=== PATIENT | female | born 1945 | race Caucasian/White ===

== ENCOUNTER 2024-04-02 12:40 | Inpatient (IN) | payer MEDICARE, BC, SELFPAY ==
--- NOTE | 2024-04-02 | DI.RAD.S_ITS ---
PROCEDURE: XR CHEST 1V INDICATIONS: preop/afib TECHNIQUE: One view of the chest was acquired. COMPARISON: None. FINDINGS: Surgical changes and devices: None. Lungs and pleura: Lungs are clear. No pleural effusions or pneumothorax. Mediastinum: Mediastinal contours appear normal. Heart size is normal. Bones and chest wall: No suspicious bony lesions. Overlying soft tissues appear unremarkable. IMPRESSION: No acute cardiopulmonary pathology. Dictated by: Campbell Boggs M.D. on 04/02/2024 at 17:36 Approved by: Campbell Boggs M.D. on 04/02/2024 at 17:36
--- NOTE | 2024-04-02 12:52 | DI.RAD.S_ITS ---
PROCEDURE: XR HIP W PEL IF DONE RT 2V INDICATIONS: fall,right hip pain TECHNIQUE: AP pelvis with lateral view(s) of the right hip(s). COMPARISON: None. FINDINGS: Bones: Displaced right femoral neck fracture with varus angulation.. Pelvic ring appears intact. No suspicious bony lesions. Soft tissues: The visualized bowel gas pattern is normal. No suspicious soft tissue calcifications. IMPRESSION: Displaced right femoral neck fracture with varus angulation. Dictated by: Gautam Lai M.D. on 04/02/2024 at 13:34 Approved by: Gautam Lai M.D. on 04/02/2024 at 13:35
[2024-04-02 12:53] VITALS: BP 156/71; PULSE 77; RESP 14; TEMP 36.4; O2SAT 99; BMI 23.6
[2024-04-02 12:57] VITALS: PULSE 63; RESP 21; O2SAT 98
[2024-04-02 13:00] VITALS: PULSE 64; RESP 18; O2SAT 97
[2024-04-02 13:30] VITALS: PULSE 66; RESP 20; O2SAT 96
--- NOTE | 2024-04-02 13:50 | ED_ITS ---
HPI - Fall General Chief Complaint: Fall Stated Complaint: GLF Time Seen by Provider: 04/02/24 13:48 Source: patient, family (), RN notes reviewed and old records reviewed Mode of arrival: EMS Limitations: no limitations History of Present Illness HPI Narrative: 78-year-old history of atrial fibrillation on Eliquis, prior meningioma that was resected had a subsequent bleed that resulted in seizure activity on patient is on Depakote. Patient's last seizure was November of 2023 patient had a focal seizure where her speech was affected. Patient also has a history of hypertension, dyslipidemia and CHF. Patient was on a hike today and fell landing on her right hip. Patient states she also landed on her right elbow. She states her elbow is fine she does not think she injured the bone she can move it normally but has pain in her right hip with any kind of movement. She denies any numbness tingling or weakness in any of her extremities but has significant pain at the hip. Denies hitting her head. No headache no neck pain, no back pain, no chest pain or shortness of breath, no nausea or vomiting no other GI or urinary symptoms. Patient states she has had prior hysterectomy has had prior meningioma resection developed subsequent bleed and did have seizures in the hospital. Most recent seizure was December 02 and she is on Depakote for this. No known drug allergies. No regular tobacco, recreational drugs or alcohol. Patient's home medications include Lasix, omeprazole, Eliquis, Depakote 750 mg p.o. b.i.d., potassium chloride, fluticasone, diltiazem. Related Data Home Medications Medication Instructions Recorded Confirmed apixaban 5 mg tablet (Eliquis) 5 mg PO BID 04/02/24 04/02/24 coQ10 (liposomal ubiquinol) 100 100 mg PO DAILY 04/02/24 04/02/24 mg/mL oral liquid divalproex 500 mg tablet,delayed 750 mg PO BID 04/02/24 04/02/24 release (Depakote) fluticasone propionate 50 1 spray intranasal DAILY 04/02/24 04/02/24 mcg/actuation nasal spray,suspension (Allergy Relief (fluticasone)) furosemide 40 mg tablet 40 mg PO DAILY 04/02/24 04/02/24 loratadine 10 mg tablet (Allergy 10 mg PO DAILY PRN Allergic 04/02/24 04/02/24 Relief (loratadine)) Symptoms magnesium 250 mg tablet 400 mg PO QPM 04/02/24 04/02/24 montelukast 10 mg tablet 10 mg PO QPM 04/02/24 04/02/24 omeprazole 20 mg capsule,delayed 20 mg PO DAILY 04/02/24 04/02/24 release pitavastatin calcium 2 mg tablet 2 mg PO QPM 04/02/24 04/02/24 (Livalo) potassium chloride 10 mEq 10 meq PO BID 04/02/24 04/02/24 tablet,extended release Allergies Allergy/AdvReac Type Severity Reaction Status Date / Time No Known Drug Allergies Allergy Verified 04/02/24 12:53 Review of Systems Review of Systems ROS Unobtainable: All systems reviewed & are unremarkable except as noted in HPI and below Patient History Medical History (Updated 04/02/24 @ 16:43 by Rj Villarreal MD) Coronary artery disease Allergic rhinitis GERD without esophagitis Mixed hyperlipidemia Essential hypertension Seizure disorder Chronic anticoagulation Paroxysmal atrial fibrillation Surgical History History of hysterectomy History of resection of meningioma Social History household members: spouse Smoking Status: Never smoker Smoking Status: Unknown if ever smoked alcohol intake frequency: holidays/special occasions only Substance Use Type: does not use Exam Narrative Exam Narrative: GEN: Patient appears in mild distress. HEAD: No evidence of trauma, no raccoon/Zambrano sign. NECK: Nontender, painless range of motion, trachea midline Negative Nexus criteria, no midline line tenderness, distracting injury, altered mental status, neuro deficit, recent EtOH. EYES: PERRLA, EOMI ENT: External inspection normal, trachea is midline, TM's are normal no hemotypanum, Nares are clear, no septal hematoma, no dental or oral injury, airway is normal and with normal occlusion, No bony tenderness RESP: Chest is nontender and has symmetric movement, no ecchymosis, breath sounds are normal no crackles, wheezes or rales CVS: Heart sounds are normal, no murmur noted, No JVD. ABG/GI: Nontender, soft, normal bowel sounds, no distention, no organomegaly, pelvic rock is negative NEURO: Oriented AOx3, neuro is grossly intact, sensation and motor is normal all 4 extremities moving, cranial nerves II through XII are intact, GCS is 15 PSYCH: Normal mood and affect SKIN: Intact, warm and dry, no crepitus and without decubitus BACK: No CVA tenderness, no vertebral tenderness, no step-off's, no crepitus EXT: Patient's right hip is tender, patient has 2+ dorsalis pedis with normal sensation throughout. No other bony tenderness of the right ankle, knee or thigh. Left hip is nontender. Patient has abrasion right elbow but has full range of motion nontender there is some ecchymosis. No other bony tenderness in the upper extremities. No pedal edema, normal color and temperature, normal range of motion of extremities with normal tendon exam, 2+ pulses in all four extremities Initial Vital Signs Initial Vital Signs: Vital Signs Temperature 97.5 F L 04/02/24 12:53 Pulse Rate 77 04/02/24 12:53 Respiratory Rate 14 04/02/24 12:53 Blood Pressure 156/71 H 04/02/24 12:53 Pulse Oximetry 99 04/02/24 12:53 Oxygen Delivery Method Room Air 04/02/24 12:53 Course Orders Ordered: ED Orders 04/02/24 12:52 XR hip w pel if done RT 2V Stat 04/02/24 12:56 CBC Auto Diff [Complete Blood Count AUTO DIFF] Stat CMP [Comprehensive Metabolic Panel] Stat PTT Partial Thromboplastin Melvin Stat Prothrombin Time INR Stat 04/02/24 14:47 Type and Screen Stat Acetaminophen (Acetaminophen 325 Mg Tablet) 650 mg PO Q6H PRN PRN Reason: Fever/Mild Pain (1-3) Last Admin: 04/02/24 15:54 Dose: 650 mg Documented By: AMBER Atorvastatin Calcium (Atorvastatin 20 Mg Tablet) 10 mg PO BEDTIME THADDEUS Divalproex Sodium (Divalproex Dr 250 Mg Tablet) 750 mg PO BID THADDEUS Fluticasone Propionate (Fluticasone 120 [place]/16 Gm [place].Susp) 1 spray NASAL DAILY THADDEUS Furosemide (Furosemide 40 Mg Tablet) 40 mg PO DAILY THADDEUS Sodium Chloride (Normal Saline 0.9%) 1,000 mls @ 125 mls/hr IV CONT THADDEUS Last Infusion: 04/02/24 15:42 Dose: 125 mls/hr Documented By: Infusion: 04/02/24 15:23 Dose: 0 mls/hr Documented By: Admin: 04/02/24 15:16 Dose: 125 mls/hr Documented By: JASMEET Loratadine (Loratadine 10 Mg Tablet) 10 mg PO DAILY PRN PRN Reason: Allergic Symptoms Magnesium Oxide (Magnesium Oxide 400 Mg Tablet) 400 mg PO BEDTIME THADDEUS Montelukast Sodium (Montelukast 10 Mg Tablet) 10 mg PO BEDTIME THADDEUS Morphine Sulfate (Morphine 4 Mg/Ml Inj) 3 mg IV Q2H PRN PRN Reason: Pain, Severe (7-10) Last Admin: 04/02/24 18:15 Dose: 3 mg Documented By: Admin: 04/02/24 16:30 Dose: 3 mg Documented By: AMBER Naloxone HCl (Naloxone 0.4 Mg/Ml Vial) 0.2 mg IV Q2MIN PRN PRN Reason: Opiate Reversal Ondansetron HCl (Ondansetron 4 Mg/2 Ml Inj) 4 mg IV Q8HR PRN PRN Reason: Nausea And Vomiting Pantoprazole Sodium (Pantoprazole Dr 20 Mg Tablet) 20 mg PO 0600 THADDEUS Potassium Chloride (Potassium Chloride 10 Meq Tab) 10 meq PO BID THADDEUS Discontinued Medications Calcium Gluconate 4.65 meq/ (Sodium Chloride) 60 mls @ 180 mls/hr IV NOW ONE Stop: 04/02/24 15:00 Last Infusion: 04/02/24 15:55 Dose: Infused Documented By: Infusion: 04/02/24 15:24 Dose: 0 mls/hr Documented By: Admin: 04/02/24 15:12 Dose: 180 mls/hr Documented By: JASMEET Magnesium Oxide (Magnesium Oxide 400 Mg Tablet) 400 mg PO QPM THADDEUS Last Admin: 04/02/24 17:41 Dose: Not Given Documented By: AMBER Montelukast Sodium (Montelukast 10 Mg Tablet) 10 mg PO QPM [facility] Last Admin: 04/02/24 17:41 Dose: Not Given Documented By: AMBER Morphine Sulfate (Morphine 4 Mg/Ml Inj) 4 mg IV Q4H PRN PRN Reason: pain Last Admin: 04/02/24 14:07 Dose: 4 mg Documented By: ASHLEY Vital Signs Vital signs: Vital Signs - 8 hr 04/02/24 12:53 04/02/24 12:57 04/02/24 13:00 Temperature 97.5 F L Pulse Rate 77 63 64 Respiratory Rate 14 21 18 Blood Pressure 156/71 H Pulse Oximetry 99 98 97 Oxygen Delivery Method Room Air 04/02/24 13:30 Temperature Pulse Rate 66 Respiratory Rate 20 Blood Pressure Pulse Oximetry 96 Oxygen Delivery Method MDM - Fall Lab Data 04/02/24 12:56 04/02/24 12:56 Labs: Lab Results 04/02/24 04/02/24 Range/Units 12:56 14:47 WBC 10.3 (4.5-11.0) X10^3/uL RBC 4.43 (4.0-5.2) X10^6/uL Hgb 13.4 (12.0-16.0) g/dL Hct 39.7 (36-46) % MCV 89.7 (80-100) fL MCH 30.2 (26-34) PG MCHC 33.6 (30-36) % RDW 14.1 (11.6-14.8) % Plt Count 220 (150-400) X10^3/uL Neut % (Auto) 74.7 (50-75) % Lymph % (Auto) 15.2 L (25-40) % [place] % (Auto) 8.1 (3-14) % Eos % (Auto) 1.4 L (2-4) % Baso % (Auto) 0.6 (0-2) % Neut # (Auto) 7700 H (7990-3059) /uL Lymph # (Auto) 1600 (2014-3217) /uL [place] # (Auto) 800 (0-900) /uL Eos # (Auto) 100 (0-450) /uL Baso # (Auto) 100 (0-100) /uL PT 12.3 (9.4-12.5) SECONDS INR 1.1 (0.9-1.3) APTT 36 (25.1-36.5) SECONDS Sodium 134 L (137-145) mmol/L Potassium 3.1 L (3.4-5.1) mmol/L Chloride 110 H (98-107) mmol/L Carbon Dioxide 21 L (22-32) mmol/L BUN 17 (7-17) mg/dL Creatinine 0.65 (0.52-1.04) mg/dL Estimated GFR > 60 (>60) mL/min BUN/Creatinine Ratio 26.2 H (6-22) Glucose 85 (80-110) mg/dL Calcium 6.5 L (8.4-10.2) mg/dL Total Bilirubin 0.5 (0.2-1.3) mg/dL AST 23 (14-36) IU/L ALT 13 (<35) IU/L Alkaline Phosphatase 62 (38-126) U/L Total Protein 4.9 L (6.3-8.2) g/dL Albumin 2.5 L (3.5-5.0) g/dL Globulin 2.4 (1.7-4.1) g/dL Albumin/Globulin Ratio 1.0 (1.0-2.8) Blood Type A Negative Antibody Screen Negative Imaging Data Extremity x-ray #1: Radiologist's Impression: [address] [address] XRay Report Signed Patient: Kenyetta Perkins MR#: [id number] : 1945 Acct:[id number] Age/Sex: 78 / F Date of Service: 04/02/24 Loc: ED Accession Number: [id number] Procedure: XR hip w pel if done RT 2V Ordering Provider: Elisabeth Cyr D.O. PROCEDURE: XR HIP W PEL IF DONE RT 2V INDICATIONS: fall,right hip pain TECHNIQUE: AP pelvis with lateral view(s) of the right hip(s). COMPARISON: None. FINDINGS: Bones: Displaced right femoral neck fracture with varus angulation.. Pelvic ring appears intact. No suspicious bony lesions. Soft tissues: The visualized bowel gas pattern is normal. No suspicious soft tissue calcifications. IMPRESSION: Displaced right femoral neck fracture with varus angulation. Dictated by: Gautam Lai M.D. on 04/02/2024 at 13:34 Approved by: Gautam Lai M.D. on 04/02/2024 at 13:35 MDM Narrative Medical decision making narrative: 78-year-old female on Eliquis with hiking, had ground level fall denies hitting head, denies any loss of consciousness. Has pain in her right elbow but states full range of motion no obvious changes necessitating x-ray today. Patient's right hip is broken on x-ray. Labs white count of 10.3 hemoglobin of 13 platelets of 220, coags are negative sodium is 134 potassium 3.1 chloride 110 CO2 is 21 BUN 17 creatinine 0.65. Calcium 6.5, LFTs are negative with low protein and albumin. Hip x-ray shows right intertrochanteric fracture Spoke with Dr. Morrison, orthopedic surgery. Plan for OR tomorrow as patient's last dose of Eliquis was this morning. Spoke with Dr. Villarreal, hospitalist: Accepts patient while awaiting call back from Orthopedic surgery. Did note that calcium was low. Dr. Villarreal updated about plan for OR possibly tomorrow but not today. Discharge Plan Departure Patient Disposition: Admitted As Inpatient Clinical Impression: Closed intertrochanteric fracture of right femur Qualifiers: Encounter type: initial encounter Fracture alignment: displaced Qualified Code(s): S72.141A - Displaced intertrochanteric fracture of right femur, initial encounter for closed fracture Admit Date/Time: 04/02/24 15:11 Admit Provider: Rj Villarreal V
[2024-04-02] MEDS: MORPHINE 4 MG/ML INJ IV (14:07)
[2024-04-02 14:08] LABS: Add Manual Diff / Slide Review NO; Basophils Absolute Auto 100 /uL (0-100); Basophils Percent Auto 0.6 % (0-2); Eosinophils Absolute Auto 100 /uL (0-450); Eosinophils Percent Auto 1.4 % (2-4); Hematocrit 39.7 % (36-46); Hemoglobin 13.4 g/dL (12.0-16.0); Lymphocytes Absolute Auto 1600 /uL (1100-4500); Lymphocytes Percent Auto 15.2 % (25-40); Mean Corpuscular HGB Conc 33.6 % (30-36); Mean Corpuscular Hemoglobin 30.2 PG (26-34); Mean Corpuscular Volume 89.7 fL (80-100); Monocytes Absolute Auto 800 /uL (0-900); Monocytes Percent Auto 8.1 % (3-14); Neutrophils Absolute Auto 7700 /uL (1500-7000); Neutrophils Percent Auto 74.7 % (50-75); Platelet Count 220 X10^3/uL (150-400); Red Blood Cell Count 4.43 X10^6/uL (4.0-5.2); Red Cell Distribution Width 14.1 % (11.6-14.8); White Blood Cell Count 10.3 X10^3/uL (4.5-11.0)
[2024-04-02 14:09] LABS: INR 1.1 (0.9-1.3); Prothrombin Time 12.3 SECONDS (9.4-12.5)
[2024-04-02 14:12] LABS: PTT Partial Thromboplastin Tim 36 SECONDS (25.1-36.5)
[2024-04-02 14:14] LABS: Alanine Aminotransferase 13 IU/L (<35); Albumin 2.5 g/dL (3.5-5.0); Alkaline Phosphatase 62 U/L (38-126); Aspartate Aminotransferase 23 IU/L (14-36); BUN Creatinine Ratio 26.2 (6-22); Bilirubin Total 0.5 mg/dL (0.2-1.3); Blood Urea Nitrogen 17 mg/dL (7-17); Carbon Dioxide 21 mmol/L (22-32); Chloride 110 mmol/L (98-107); Estimated Glomerular Filt Rate > 60 mL/min (>60); Globulin 2.4 g/dL (1.7-4.1); Glucose 85 mg/dL (80-110); HEMOLYSIS 19 (0-50); Potassium 3.1 mmol/L (3.4-5.1); Sodium 134 mmol/L (137-145); Total Protein 4.9 g/dL (6.3-8.2)
[2024-04-02 14:24] LABS: Calcium 6.5 mg/dL (8.4-10.2)
[2024-04-02] MEDS: CALCIUM GLUCONATE 4.65 MEQ in SODIUM CHLORIDE 0.9% 50 ML 180 MEQ IV (15:12)
[2024-04-02 15:14] VITALS: BMI 23.6
[2024-04-02] MEDS: SODIUM CHLORIDE 0.9% 1,000 ML 125 ML IV (15:16)
--- NOTE | 2024-04-02 15:38 | P.HP_ITS ---
History of Present Illness History of Present Illness Date Patient Seen: 04/02/24 Time Patient Seen: 16:00 Date of Onset of Symptoms: 04/02/24 Chief complaint: GLF Narrative: 78-year-old fell today while on a hike today falling on her right hip and elbow, with pain in the right hip with any movement. She denies a head injury. She is visiting from [place] with her . She has a history of atrial fibrillation on Eliquis, s/p meningioma resection with a subsequent intracranial hemorrhage with seizures controlled on Depakote. Her last seizure was November of 2023 patient had a focal seizure where her speech was affected. Patient also has a history of hypertension, dyslipidemia and coronary artery disease with mild LAD stenosis managed medically without a history of angina. Patient was on a hike today and fell landing on her right hip. Patient states she also landed on her right elbow. She states her elbow is fine she does not think she injured the bone she can move it normally but has pain in her right hip with any kind of movement. She denies chest pain or shortness of breath, no nausea or vomiting no other GI or urinary symptoms. No history of cancer with prior hysterectomy. [facility] Medical History (Updated 04/02/24 @ 16:43 by Rj Villarreal MD) Coronary artery disease Allergic rhinitis GERD without esophagitis Mixed hyperlipidemia Essential hypertension Seizure disorder Chronic anticoagulation Paroxysmal atrial fibrillation Surgical History History of hysterectomy History of resection of meningioma Social History household members: spouse Smoking Status: Never smoker Meds Home Medications and Allergies Home Medications Medication Instructions Recorded Confirmed Type apixaban 5 mg tablet (Eliquis) 5 mg PO BID 04/02/24 04/02/24 History coQ10 (liposomal ubiquinol) 100 100 mg PO DAILY 04/02/24 04/02/24 History mg/mL oral liquid divalproex 500 mg tablet,delayed 750 mg PO BID 04/02/24 04/02/24 History release (Depakote) fluticasone propionate 50 1 spray intranasal DAILY 04/02/24 04/02/24 History mcg/actuation nasal spray,suspension (Allergy Relief (fluticasone)) furosemide 40 mg tablet 40 mg PO DAILY 04/02/24 04/02/24 History loratadine 10 mg tablet (Allergy 10 mg PO DAILY PRN Allergic 04/02/24 04/02/24 History Relief (loratadine)) Symptoms magnesium 250 mg tablet 400 mg PO QPM 04/02/24 04/02/24 History montelukast 10 mg tablet 10 mg PO QPM 04/02/24 04/02/24 History omeprazole 20 mg capsule,delayed 20 mg PO DAILY 04/02/24 04/02/24 History release pitavastatin calcium 2 mg tablet 2 mg PO QPM 04/02/24 04/02/24 History (Livalo) potassium chloride 10 mEq 10 meq PO BID 04/02/24 04/02/24 History tablet,extended release Allergies Allergy/AdvReac Type Severity Reaction Status Date / Time No Known Drug Allergies Allergy Verified 04/02/24 12:53 Review of Systems Review of Systems ROS: Yes All systems reviewed with the patient and are negative except as otherwise documented Exam Vital Signs (past 8 hours): - 04/02/24 12:53 04/02/24 12:57 04/02/24 13:00 Temperature 97.5 F L Pulse Rate 77 63 64 Respiratory Rate 14 21 18 Blood Pressure 156/71 H Pulse Oximetry 99 98 97 Oxygen Delivery Method Room Air 04/02/24 13:30 Temperature Pulse Rate 66 Respiratory Rate 20 Blood Pressure Pulse Oximetry 96 Oxygen Delivery Method Oxygen Delivery Method Room Air Narrative Exam Narrative: GENERAL: This is a well-nourished, well-developed patient, in no apparent distress. HEAD: Atraumatic. Normocephalic. No temporal or scalp tenderness. EYES: Pupils equal round and reactive. Extraocular motions intact. No scleral icterus. No injection or drainage. ENT: Mucous membranes pink and moist. NECK: Trachea midline. No JVD, bruits or lymphadenopathy. Supple, nontender, no meningeal signs. CARDIOVASCULAR: Regular rate and rhythm without murmurs, gallops, or rubs. RESPIRATORY: Clear to auscultation. GASTROINTESTINAL: Abdomen soft, non-tender, nondistended. EXTREMITIES: No clubbing, cyanosis, or edema. Right leg shortened and internally rotated. NEUROLOGIC: Alert, oriented, speech fluent, full upper and lower motor strength, no focal deficits evident. DERMATOLOGIC: Right elbow abrasion with dressing in place. Objective Imaging Left hip xray: Radiologist's impression: Displaced right femoral neck fracture with varus angulation. Labs 04/02/24 12:56 04/02/24 12:56 Labs: Laboratory Results - last 24 hr 04/02/24 12:56 WBC 10.3 RBC 4.43 Hgb 13.4 Hct 39.7 MCV 89.7 MCH 30.2 MCHC 33.6 RDW 14.1 Plt Count 220 Neut % (Auto) 74.7 Lymph % (Auto) 15.2 L [place] % (Auto) 8.1 Eos % (Auto) 1.4 L Baso % (Auto) 0.6 Neut # (Auto) 7700 H Lymph # (Auto) 1600 [place] # (Auto) 800 Eos # (Auto) 100 Baso # (Auto) 100 PT 12.3 INR 1.1 APTT 36 Sodium 134 L Potassium 3.1 L Chloride 110 H Carbon Dioxide 21 L BUN 17 Creatinine 0.65 Estimated GFR > 60 BUN/Creatinine Ratio 26.2 H Glucose 85 Calcium 6.5 L Total Bilirubin 0.5 AST 23 ALT 13 Alkaline Phosphatase 62 Total Protein 4.9 L Albumin 2.5 L Globulin 2.4 Albumin/Globulin Ratio 1.0 Assessment & Plan Assessment and plan (1) Closed intertrochanteric fracture of right femur: Qualifiers: Encounter type: initial encounter Fracture alignment: displaced Qualified Code(s): S72.141A - Displaced intertrochanteric fracture of right femur, initial encounter for closed fracture Status: Acute (2) Paroxysmal atrial fibrillation: Status: Acute (3) Chronic anticoagulation: Status: Acute (4) Coronary artery disease: Qualifiers: Coronary Disease-Associated Artery/Lesion type: [place] artery [place] vs. transplanted heart: [place] heart Associated angina: without angina Qualified Code(s): I25.10 - Atherosclerotic heart disease of [place] coronary artery without angina pectoris Status: Acute (5) History of resection of meningioma: Status: Acute (6) Seizure disorder: Status: Acute (7) Essential hypertension: Status: Acute (8) Mixed hyperlipidemia: Status: Acute (9) GERD without esophagitis: Status: Acute (10) Allergic rhinitis: Qualifiers: Allergic rhinitis trigger: other Allergic rhinitis seasonality: u nspecified Qualified Code(s): J30.89 - Other allergic rhinitis Status: Acute (11) History of hysterectomy: Status: Acute Plan The Revised Cardiac Risk Index for Pre-Operative Risk score is 0, considered class 1 risk level with at 3.9% 30-day risk of , RI, or cardiac arrest. The patient is cleared as low risk for cardiac and medical complications for upcoming surgery pending completion of labwork today. Assessment & Plan narrative: Admit to hospital Consult orthopedics Hold Mar in anticipation of surgery Check EKG Continue routine medications otherwise Full code status Time-Based Coding :: [TOTAL MINUTES] spent with patient and on the chart (including review of chart, obtaining history, exam, reviewing outside data, placing orders, documenting exam and treatment plan, and counseling patient) on [DATE]. Quality MIPS - Admit I confirm the patient?s Advance Care Plan is present, Code status is documented, Surrogate decision maker is in patient?s record [If Yes, STOP here]: Yes [facility] - Meds 'Current medications' to include all prescriptions, [id number] products, herbals, cannabis/cannabidiol products, and vitamin/mineral/dietary (nutritional) supplements. I have utilized all available resources to obtain, update, or review the patient?s current medications. [If Yes, STOP here]: Yes [facility] Charge Codes Initial inpatient/observation care: 82603
--- NOTE | 2024-04-02 15:40 | EKG_ITS ---
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
[2024-04-02 15:51] VITALS: BP 135/66; PULSE 61; RESP 17; TEMP 36.1; O2SAT 99
[2024-04-02] MEDS: ACETAMINOPHEN 325 MG TABLET 650 MG PO ×2 (15:54→23:10)
[2024-04-02] MEDS: MORPHINE 4 MG/ML INJ 3 MG IV ×3 (16:30→20:17)
--- NOTE | 2024-04-02 18:19 | PC.NURSE ---
Admitted from ED at roughly 1515 via stretcher, slide board needed to move patient to new bed. A/O x4, all vitals stable. at bedside throughout shift. Patient in severe pain throughout shift, rating 7-10. Any sort of movement or pressure on right lower extremity causing significant distress. Right hip swollen, but soft, not firm. Will continue to monitor for signs of internal bleeding.
[2024-04-02 20:00] VITALS: BP 130/67; PULSE 66; RESP 19; TEMP 35.7; O2SAT 95
[2024-04-02] MEDS: MONTELUKAST 10 MG TABLET PO (20:20)
[2024-04-02] MEDS: DIVALPROEX DR 250 MG TABLET 750 MG PO (20:20)
[2024-04-02] MEDS: ATORVASTATIN 20 MG TABLET 10 MG PO (20:20)
[2024-04-02] MEDS: POTASSIUM CHLORIDE 10 MEQ TAB PO (20:20)
[2024-04-02] MEDS: MAGNESIUM OXIDE 400 MG TABLET PO (20:21)
[2024-04-02] MEDS: ALBUTEROL 2.5 MG/3 ML NEB (ADULT) INH (21:58)
[2024-04-02] MEDS: BUDESONIDE 0.5 MG/2 ML NEB INH (21:58)
[2024-04-02] MEDS: ONDANSETRON 4 MG/2 ML INJ IV (21:59)
[2024-04-03 00:02] VITALS: BP 132/61; PULSE 72; RESP 17; TEMP 35.7; O2SAT 98
[2024-04-03] MEDS: MORPHINE 4 MG/ML INJ 3 MG IV ×6 (00:53→23:35)
[2024-04-03 04:11] VITALS: BP 132/63; PULSE 66; RESP 18; TEMP 35.9; O2SAT 95
[2024-04-03 05:56] LABS: Add Manual Diff / Slide Review NO; Basophils Absolute Auto 0 /uL (0-100); Basophils Percent Auto 0.5 % (0-2); Eosinophils Absolute Auto 100 /uL (0-450); Eosinophils Percent Auto 0.7 % (2-4); Hematocrit 36.8 % (36-46); Hemoglobin 12.6 g/dL (12.0-16.0); Lymphocytes Absolute Auto 1900 /uL (1100-4500); Lymphocytes Percent Auto 18.5 % (25-40); Mean Corpuscular HGB Conc 34.3 % (30-36); Mean Corpuscular Hemoglobin 30.3 PG (26-34); Mean Corpuscular Volume 88.4 fL (80-100); Monocytes Absolute Auto 900 /uL (0-900); Monocytes Percent Auto 9.2 % (3-14); Neutrophils Absolute Auto 7300 /uL (1500-7000); Neutrophils Percent Auto 71.1 % (50-75); Platelet Count 197 X10^3/uL (150-400); Red Blood Cell Count 4.16 X10^6/uL (4.0-5.2); White Blood Cell Count 10.2 X10^3/uL (4.5-11.0)
[2024-04-03] MEDS: ACETAMINOPHEN 325 MG TABLET 650 MG PO (05:57)
[2024-04-03] MEDS: PANTOPRAZOLE DR 20 MG TABLET PO (05:57)
[2024-04-03 06:06] LABS: BUN Creatinine Ratio 21.2 (6-22); Blood Urea Nitrogen 18 mg/dL (7-17); Calcium 8.4 mg/dL (8.4-10.2); Carbon Dioxide 30 mmol/L (22-32); Chloride 94 mmol/L (98-107); Estimated Glomerular Filt Rate > 60 mL/min (>60); Glucose 94 mg/dL (80-110); HEMOLYSIS < 15 (0-50); Potassium 4.2 mmol/L (3.4-5.1); Sodium 127 mmol/L (137-145)
--- NOTE | 2024-04-03 07:23 | P.PN_ITS ---
Subjective Subjective Date Patient Seen: 04/03/24 Exam Vital Signs (past 8 hours): - 04/03/24 00:02 04/03/24 04:11 Temperature 96.3 F L 96.6 F L Pulse Rate 72 66 Respiratory Rate 17 18 Blood Pressure 132/61 132/63 Pulse Oximetry 98 95 Oxygen Delivery Method Room Air Oxygen Flow Rate 0 Narrative Exam Narrative: GENERAL: This is a well-nourished, well-developed patient, in no apparent distress. EYES: Pupils equal round and reactive. Extraocular motions intact. ENT: Mucous membranes pink and moist. NECK: Supple, nontender, no meningeal signs. CARDIOVASCULAR: Regular rate and rhythm without murmurs, gallops, or rubs. RESPIRATORY: Clear to auscultation. GASTROINTESTINAL: Abdomen soft, non-tender, nondistended. EXTREMITIES: No clubbing, cyanosis, or edema. Right leg shortened and internally rotated. NEUROLOGIC: Alert, oriented, speech fluent, full upper and lower motor strength, no focal deficits evident. DERMATOLOGIC: Right elbow abrasion with dressing in place. Objective ECG Impression: Normal sinus rhythm at 62bpm Low voltage QRS No ischemic changes Labs 04/03/24 03:50 04/03/24 03:50 Labs: Laboratory Results - last 24 hr 04/02/24 04/02/24 04/03/24 12:56 14:47 03:50 WBC 10.3 10.2 RBC 4.43 4.16 Hgb 13.4 12.6 Hct 39.7 36.8 MCV 89.7 88.4 MCH 30.2 30.3 MCHC 33.6 34.3 RDW 14.1 14.0 Plt Count 220 197 Neut % (Auto) 74.7 71.1 Lymph % (Auto) 15.2 L 18.5 L [place] % (Auto) 8.1 9.2 Eos % (Auto) 1.4 L 0.7 L Baso % (Auto) 0.6 0.5 Neut # (Auto) 7700 H 7300 H Lymph # (Auto) 1600 1900 [place] # (Auto) 800 900 Eos # (Auto) 100 100 Baso # (Auto) 100 0 PT 12.3 INR 1.1 APTT 36 Sodium 134 L 127 L Potassium 3.1 L 4.2 Chloride 110 H 94 L Carbon Dioxide 21 L 30 BUN 17 18 H Creatinine 0.65 0.85 Estimated GFR > 60 > 60 BUN/Creatinine Ratio 26.2 H 21.2 Glucose 85 94 Calcium 6.5 L 8.4 Total Bilirubin 0.5 AST 23 ALT 13 Alkaline Phosphatase 62 Total Protein 4.9 L Albumin 2.5 L Globulin 2.4 Albumin/Globulin Ratio 1.0 Blood Type A Negative Antibody Screen Negative [facility] Medical History (Updated 04/03/24 @ 07:25 by Rj Villarreal MD) Asthma, mild intermittent Coronary artery disease Allergic rhinitis GERD without esophagitis Mixed hyperlipidemia Essential hypertension Seizure disorder Chronic anticoagulation Paroxysmal atrial fibrillation Surgical History History of hysterectomy History of resection of meningioma Social History household members: spouse Smoking Status: Never smoker Assessment & Plan Assessment and plan (1) Closed intertrochanteric fracture of right femur: Qualifiers: Encounter type: initial encounter Fracture alignment: displaced Qualified Code(s): S72.141A - Displaced intertrochanteric fracture of right femur, initial encounter for closed fracture Status: Acute (2) Paroxysmal atrial fibrillation: Status: Acute (3) Chronic anticoagulation: Status: Acute (4) Coronary artery disease: Qualifiers: Associated angina: without angina Coronary Disease-Associated Artery/Lesion type: [place] artery [place] vs. transplanted heart: [place] heart Qualified Code(s): I25.10 - Atherosclerotic heart disease of [place] coronary artery without angina pectoris Status: Acute (5) History of resection of meningioma: Status: Acute (6) Seizure disorder: Status: Acute (7) Essential hypertension: Status: Acute (8) Mixed hyperlipidemia: Status: Acute (9) GERD without esophagitis: Status: Acute (10) Allergic rhinitis: Qualifiers: Allergic rhinitis seasonality: unspecified Allergic rhinitis trigger: o ther Qualified Code(s): J30.89 - Other allergic rhinitis Status: Acute (11) Asthma, mild intermittent: Qualifiers: Asthma complication type: uncomplicated Qualified Code(s): J45.20 - Mild intermittent asthma, uncomplicated Status: Acute (12) History of hysterectomy: Status: Acute Plan The Revised Cardiac Risk Index for Pre-Operative Risk score is 0, considered class 1 risk level with at 3.9% 30-day risk of , SD, or cardiac arrest. The patient is cleared as low risk for cardiac and medical complications for upcoming surgery pending completion of labwork today. Assessment & Plan narrative: Inpatient admission Consulted orthopedics, much appreciated care by Dr. Morrison Surgical repair planned 04/04/2024 Hold Eliquis in anticipation of surgery, resume post-op Continue routine medications otherwise Full code status Time-Based Coding :: [TOTAL MINUTES] spent with patient and on the chart (including review of chart, obtaining history, exam, reviewing outside data, placing orders, documenting exam and treatment plan, and counseling patient) on [DATE].
[2024-04-03 08:00] VITALS: BP 123/57; PULSE 60; RESP 18; TEMP 35.8; O2SAT 96
[2024-04-03] MEDS: DIVALPROEX DR 250 MG TABLET 750 MG PO ×2 (08:39→21:11)
[2024-04-03] MEDS: POTASSIUM CHLORIDE 10 MEQ TAB PO ×2 (08:40→21:11)
[2024-04-03] MEDS: FUROSEMIDE 40 MG TABLET PO (08:40)
--- NOTE | 2024-04-03 09:22 | PT-IP ANOTE ---
PT eval order received. EMR reviewed. pt s/p fall and sustained a R hip fx. pt is pending sx. per nurse, pt will be having sx tomorrow. will d/c PT order and will wait for new PT eval order after sx if pt is appropriate for PT and for precautions and weight bearing status.
--- NOTE | 2024-04-03 10:10 | PC.NURSE ---
Addendum entered by Arielle Lomas R.N. 04/03/24 17:05: per Dr. Villarreal, pt may take Depakote with a sip of water in the morning prior to surgery Addendum entered by Arielle Lomas R.N. 04/03/24 16:02: using SCDs on and off. When she wants to sleep, SCDs come off. Pt has taken all her rings off and gave to her Original Note: pt refusing SCDs; encourged to do ankle waves q1hr. Tele on pt. MS given and pt states she is able to sleep a bit.
[2024-04-03 12:00] VITALS: BP 112/48; PULSE 62; RESP 17; TEMP 35.9; O2SAT 96
--- NOTE | 2024-04-03 12:08 | CM.DANOTE ---
Initial DCP Assessment Note Pt is a 78 yo female, resident of [place] , arrives after a fall while hiking, now with hip fx in need of repair. PCP: Johnny Melendrez ([place]) Payer: [employer]/BC[employer] Reviewed chart, met w/patient and her Junior, introduced self and role. Patient lives with spouse, typically very active and indp. Discussed potential discharge scenarios; SNF vs home w/friend vs hotel or airbnb. Outpatient PT vs HH PT. Explained that HH may not be able to accommodate patient at a hotel, possibly airbnb (?). Further assessment of need and discussion about dispo options needed once patient has her surgery and had worked with therapies. CM team will plan to follow closely for therapy recommendations and for coordination of eventual discharge plan. CHAGO Prater Discharge Planning/Care Management CM Discharge Assessment Start: 04/03/24 11:35 Freq: Status: Active Protocol: Document 04/03/24 11:35 RAFAL (Rec: 04/03/24 12:08 RAFAL [id number]) Discharge Planning Assessment Assigned Child Development Director CHAGO Razo DPOA/Assigned Designee Name Junior () Contact Information [phone] Advance Directives? No History Provided By Patient,Significant Other, Medical Record Prior Living Arrangements House Household Members spouse Type of transporation used prior to Drives own vehicle admit Independent with ADL's Yes Is patient alert and oriented? Yes Comment SNF vs home w/friend and HH vs hotel room Comment Patient and spouse are visiting from [place]. Patient is hopeful she will not require a SNF but will consider it if recommended. Patient and spouse have a friend on [facility] they may be able to stay with, they have also considered a hotel upon discharge while patient recovers enough for a flight home. Transportation Arrangement TBD
[2024-04-03 16:00] VITALS: BP 127/58; PULSE 65; RESP 16; O2SAT 97
[2024-04-03] MEDS: NEOMYCIN/POLYMYXIN/BACITRA UD OINT 1 EACH TOP (16:52)
[2024-04-03 20:00] VITALS: BP 114/55; PULSE 70; RESP 18; TEMP 35.9; O2SAT 94
[2024-04-03] MEDS: MONTELUKAST 10 MG TABLET PO (21:10)
[2024-04-03] MEDS: ATORVASTATIN 20 MG TABLET 10 MG PO (21:11)
[2024-04-03] MEDS: MAGNESIUM OXIDE 400 MG TABLET PO (21:11)
[2024-04-03] MEDS: SALMETEROL INH (21:11)
[2024-04-03] MEDS: FLUTICASONE INH (21:11)
[2024-04-03] MEDS: SODIUM CHLORIDE 0.9% FLUSH 10 ML IV ×2 (21:23→23:35)
[2024-04-03] MEDS: SENNOSIDES 8.6 MG TABLET 17.2 MG PO (22:39)
[2024-04-03] MEDS: polyethylene glycoL 3350 17 GM POWD.PACK PO (22:39)
[2024-04-03] MEDS: diphenhydrAMINE 25 MG TABLET 50 MG PO (22:39)
[2024-04-04] VITALS (16 sets, daily range): BP systolic 102–141; BP diastolic 45–70; PULSE 62–80; RESP 12–20; TEMP 35.7–36.9; O2SAT 91–97
--- NOTE | 2024-04-04 | DI.RAD.S_ITS ---
PROCEDURE: XR HIP W PEL IF DONE RT 2V INDICATIONS: Post OP TECHNIQUE: AP pelvis and lateral view of the hip acquired. COMPARISON: [facility], SUSAN, XR HIP W PEL IF DONE RT 2V, 04/02/2024, 12:52. FINDINGS: Bones: Patient is status post right hip arthroplasty, with hardware components in expected positions. The hip joint appears congruent. The visualized bony structures appear intact. Soft tissues: Overlying postoperative changes are noted. No suspicious soft tissue densities. IMPRESSION: Expected post-operative appearance of a hip arthroplasty. Dictated by: Nikky Hudson M.D. on 04/04/2024 at 11:41 Approved by: Nikky Hudson M.D. on 04/04/2024 at 11:41
[2024-04-04] MEDS: MORPHINE 4 MG/ML INJ 3 MG IV (05:26)
[2024-04-04] MEDS: PANTOPRAZOLE DR 20 MG TABLET PO (05:27)
[2024-04-04] MEDS: DIVALPROEX DR 250 MG TABLET 750 MG PO ×2 (05:27→20:32)
[2024-04-04] MEDS: SALMETEROL INH ×2 (05:28→20:31)
[2024-04-04] MEDS: FLUTICASONE INH ×2 (05:28→20:31)
[2024-04-04] MEDS: SODIUM CHLORIDE 0.9% FLUSH 10 ML IV ×2 (05:29→20:33)
--- NOTE | 2024-04-04 07:43 | P.PN_ITS ---
Subjective Subjective Date Patient Seen: 04/04/24 Time Patient Seen: 14:30 Interval history: The patient underwent right hip gloria arthroplasty this morning without incident. She is seen postoperatively without complaints. She notes she had a postoperative left leg DVT after meningioma resection which was complicated by intracranial bleeding few years ago. Exam Vital Signs (past 8 hours): - 04/04/24 00:00 04/04/24 04:00 Temperature 96.3 F L 96.8 F L Pulse Rate 64 69 Respiratory Rate 18 17 Blood Pressure 133/67 136/70 Pulse Oximetry 95 95 Oxygen Flow Rate 0 0 Oxygen Delivery Method Room Air Oxygen Flow Rate 0 Narrative Exam Narrative: GENERAL: This is a well-nourished, well-developed patient, in no apparent distress. EYES: Pupils equal round and reactive. Extraocular motions intact. ENT: Mucous membranes pink and moist. NECK: Supple, nontender, no meningeal signs. CARDIOVASCULAR: Regular rate and rhythm without murmurs, gallops, or rubs. RESPIRATORY: Clear to auscultation. GASTROINTESTINAL: Abdomen soft, non-tender, nondistended. EXTREMITIES: No clubbing, cyanosis, or edema. Right hip dressing in place, clean, dry and intact. NEUROLOGIC: Alert, oriented, speech fluent, full upper and lower motor strength, no focal deficits evident. DERMATOLOGIC: Right elbow abrasion with dressing in place. Objective Labs 04/03/24 03:50 04/03/24 03:50 [facility] Medical History (Updated 04/04/24 @ 15:05 by Rj Villarreal MD) Hyponatremia History of DVT (deep vein thrombosis) Asthma, mild intermittent Coronary artery disease Allergic rhinitis GERD without esophagitis Mixed hyperlipidemia Essential hypertension Seizure disorder Chronic anticoagulation Paroxysmal atrial fibrillation Surgical History History of hysterectomy History of resection of meningioma Social History household members: spouse Smoking Status: Never smoker Assessment & Plan Assessment and plan (1) Closed intertrochanteric fracture of right femur: Qualifiers: Encounter type: initial encounter Fracture alignment: displaced Qualified Code(s): S72.141A - Displaced intertrochanteric fracture of right femur, initial encounter for closed fracture Status: Acute (2) Paroxysmal atrial fibrillation: Status: Acute (3) Chronic anticoagulation: Status: Acute (4) Coronary artery disease: Qualifiers: Coronary Disease-Associated Artery/Lesion type: [place] artery [place] vs. transplanted heart: [place] heart Associated angina: without angina Qualified Code(s): I25.10 - Atherosclerotic heart disease of [place] coronary artery without angina pectoris Status: Acute (5) History of resection of meningioma: Status: Acute (6) Seizure disorder: Status: Acute (7) Essential hypertension: Status: Acute (8) Mixed hyperlipidemia: Status: Acute (9) GERD without esophagitis: Status: Acute (10) Allergic rhinitis: Qualifiers: Allergic rhinitis trigger: other Allergic rhinitis seasonality: u nspecified Qualified Code(s): J30.89 - Other allergic rhinitis Status: Acute (11) Asthma, mild intermittent: Qualifiers: Asthma complication type: uncomplicated Qualified Code(s): J45.20 - Mild intermittent asthma, uncomplicated Status: Acute (12) History of hysterectomy: Status: Acute (13) History of DVT (deep vein thrombosis): Status: Acute (14) Hyponatremia: Status: Acute Plan The patient is doing well postoperatively following right hip hemiarthroplasty 04/04/2024. Resume Eliquis for history of atrial fibrillation and postoperative DVT prophylaxis, noting prior history of DVT. 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 Assessment & Plan narrative: Doing well post hip replacement Resume Eliquis Continue routine medications otherwise Monitor electrolytes Full code status Time-Based Coding :: [TOTAL MINUTES] spent with patient and on the chart (including review of chart, obtaining history, exam, reviewing outside data, placing orders, documenting exam and treatment plan, and counseling patient) on [DATE]. PROFEE Charge codes Subsequent inpatient/observation care: 84186
--- NOTE | 2024-04-04 08:10 | PM.HP.1 ---
History of Present Illness History of Present Illness Date Patient Seen: 04/04/24 Time Patient Seen: 08:10 Chief complaint: GLF Narrative: This is a pleasant 78-year-old female with past medical history of coronary artery disease and AFib on apixaban (last took 2 days ago) who had a ground level fall sustaining a right hip femoral neck fracture. She was seen in our emergency department and admitted to the hospitalist service. Currently complaining of pain in the right hip otherwise no other issues. Denies any recent nausea, vomiting, diarrhea, fevers, chills or any other constitutional symptoms. No other complaints at this time. [facility] Medical History Asthma, mild intermittent Coronary artery disease Allergic rhinitis GERD without esophagitis Mixed hyperlipidemia Essential hypertension Seizure disorder Chronic anticoagulation Paroxysmal atrial fibrillation Surgical History History of hysterectomy History of resection of meningioma Social History household members: spouse Smoking Status: Never smoker Meds Home Medications and Allergies Home Medications Medication Instructions Recorded Confirmed Type apixaban 5 mg tablet (Eliquis) 5 mg PO BID 04/02/24 04/02/24 History coQ10 (liposomal ubiquinol) 100 100 mg PO DAILY 04/02/24 04/02/24 History mg/mL oral liquid divalproex 500 mg tablet,delayed 750 mg PO BID 04/02/24 04/02/24 History release (Depakote) fluticasone 250 mcg-salmeterol 50 1 inh inhalation BID 04/02/24 04/02/24 History mcg/dose blistr powdr for inhalation (Advair Diskus) fluticasone propionate 50 1 spray intranasal DAILY 04/02/24 04/02/24 History mcg/actuation nasal spray,suspension (Allergy Relief (fluticasone)) furosemide 40 mg tablet 40 mg PO DAILY 04/02/24 04/02/24 History loratadine 10 mg tablet (Allergy 10 mg PO DAILY PRN Allergic 04/02/24 04/02/24 History Relief (loratadine)) Symptoms magnesium 250 mg tablet 400 mg PO QPM 04/02/24 04/02/24 History montelukast 10 mg tablet 10 mg PO QPM 04/02/24 04/02/24 History omeprazole 20 mg capsule,delayed 20 mg PO DAILY 04/02/24 04/02/24 History release pitavastatin calcium 2 mg tablet 2 mg PO QPM 04/02/24 04/02/24 History (Livalo) potassium chloride 10 mEq 10 meq PO BID 04/02/24 04/02/24 History tablet,extended release zaleplon 5 mg capsule 5 mg PO BEDTIME PRN Sleep 04/03/24 04/03/24 History Allergies Allergy/AdvReac Type Severity Reaction Status Date / Time No Known Drug Allergies Allergy Verified 04/02/24 12:53 Review of Systems Review of Systems ROS: Yes All systems reviewed with the patient and are negative except as otherwise documented Exam Vital Signs (past 8 hours): - 04/04/24 04:00 Temperature 96.8 F L Pulse Rate 69 Respiratory Rate 17 Blood Pressure 136/70 Pulse Oximetry 95 Oxygen Flow Rate 0 Oxygen Delivery Method Room Air Oxygen Flow Rate 0 Narrative Exam Narrative: HEENT: Head atraumatic eyes anicteric moist mucous membranes Cardiovascular: Palpable peripheral pulses extremities are warm and well perfused Respiratory: Breathing comfortably on room air Psychiatric: Appropriate mood and affect Neuro: No acute deficits Musculoskeletal: Right lower extremity held slightly flexed and internally rotated. Did not range motion due to known injury. Sensation intact to light touch in sural, saphenous, superficial peroneal, deep peroneal and tibial nerve distributions. Able to fire EHL, FHL, tib ant and gastrocs. 2+ dorsalis pedis pulse with brisk capillary refill less than 2 seconds Objective Imaging X-ray hip and pelvis: My impression: X-ray right hip and pelvis obtained and reviewed 2 days ago demonstrates a right basicervical femoral neck fracture which is displaced no other fractures or dislocations noted Labs 04/03/24 03:50 04/03/24 03:50 Assessment & Plan Assessment & Plan narrative: Assessment: 78-year-old female with right basicervical femoral neck fracture Plan: We discussed operative options. In order to increase health outcomes, early mobilization and decrease pain she is indicated for a right hip hemiarthroplasty. Risks and benefits of surgery were discussed again including the risk of infection, damage to internal structures, bleeding, nerve injury, instability, need for revision surgery, blood clots, anesthesia and . No guarantees were made regarding outcomes. Patient expressed understanding and accepted these risks and wished to go forward with surgery and consent was signed. Time-Based Coding :: [TOTAL MINUTES] spent with patient and on the chart (including review of chart, obtaining history, exam, reviewing outside data, placing orders, documenting exam and treatment plan, and counseling patient) on [DATE].
[2024-04-04] MEDS: CEFAZOLIN 2 GM/100 ML PREMIX 100 ML IV (08:45)
[2024-04-04] MEDS: TRANEXAMIC ACID 1,000 MG in SODIUM CHLORIDE 0.9% 100 ML 200 MG IV (08:50)
--- NOTE | 2024-04-04 09:18 | SUR.OPER ---
Lateral on padded OR bed. Gel axillary roll. Arms secured on padded armboard with pillow supporting top arm. Padded hip positioner braces x4 - anterior and posterior chest and pelvis. Additional gel pad used anterior pelvis. Gel pad under bottom leg from knee to foot and secured with tape over sheet.
[2024-04-04] MEDS: BUPIVACAINE 0.25% (PF) 30 ML, EPINEPHrine 0.15 MG INJ (10:07)
[2024-04-04] MEDS: BUPIVACAINE LIPOSOME 266 MG/20 ML VIAL INJ (10:09)
[2024-04-04] MEDS: LACTATED RINGERS 1,000 ML 100 ML IV (10:36)
--- NOTE | 2024-04-04 10:50 | P.OP_ITS ---
Operative Date/Time/Diagnoses Date of procedure: 04/04/24 Time of procedure: 10:50 Pre-op diagnosis: Right basicervical femoral neck fracture Post-op diagnosis: same Procedure & Clinicians Procedure: Right hip hemiarthroplasty Same procedure as scheduled: Yes Indications: Indication: This is a 78year old female with a right femoral neck fracture. We discussed that in order to decrease the risk of avascular necrosis, fracture nonunion fracture malunion and to increase the ability to weightbear early, and increase overall health outcomes, we recommend hip hemiarthroplasty. The risks and benefits of surgery were discussed in detail including the risk for infection, damage to internal structures, bleeding, hardware failure, femur frac ture, need for future surgery, dislocation, and risks of anesthesia. They accepted all the risks and expressed understanding and wished to go forward with surgery. Surgeon: Elijah Morrison Click Yes if Unassisted: Yes Anesthesia Type: General Operative Notes Findings: Right basicervical femoral neck fracture as seen under direct visualization and under x-ray Closure Type: primary Specimen(s): none sent Prosthetic devices, grafts, tissues, transplants, or devices: Implants [employer] Synergy cemented stem size 12 Distal post centralizer Cement restrictor +0 12/14 taper sleeve Unipolar head size 46 Estimated Blood Loss (mL): 200 Procedure in detail: Description: Patient was identified in the preoperative holding area. The correct right hip was marked with my initials. Risks were again discussed. The patient was then brought to the operating room. A surgical pause was done confirming the correct site of surgery. The patient was given perioperative IV antibiotics followed by induction of general anesthesia. Patient was placed in the lateral decubitus position with hip peoplesoft programmer positioners. An axillary roll was placed. The right hip and lower extremity were then prepped and draped in a standard sterile fashion. Posterolateral skin incision was made centered over the greater trochanter. Dissection was carried down to the fascia malinda and a Bhatt was used to define the plane of tissue. The fascia was then incised in line with the skin incision over the greater trochanter. A Charnley retractor was placed. The trochanter bursa was then resected. The leg was internally rotated and the capsule and short external rotators were put on tension. They were then released in line with the piriformis tendon as a single sleeve in an L-shaped fashion and this was tagged with a #5 Ethibond suture for later repair. The upper part of the quadratus femoris insertion on the femur was released. The hip was then dislocated. With the thigh parallel to the ground and the leg perpendicular to the ground at 90?, a femoral neck cut was done and then the f emoral head was removed from the acetabulum. A Macias retractor was placed under the neck, and a narrow Cobra was placed into the lesser trochanter. The [place] cutter and canal Finder were then used followed by the lateralizer. Broaching was commenced. Trialing was then done and the hip was felt to be stable. Once satisfactory sizing was confirmed a centralized plug was inserted and the canal was lavaged and dried. Cement was inserted and pressurized. The final implant was then inserted with just a few degrees of additional anteversion from the burns paiute version. Retrialing was done and the final bipolar head/neck construct was inserted. The hip was again taken through range of motion. Implant was stable at 90? of hip flexion all the way to 60? of internal rotation. Leg lengths were equal based on tibial tubercle palpation. The wounds were irrigated. Capsule was repaired through 2 drill holes in the greater trochanter. Fascia was closed with #2 Quill and then the subcutaneous tissue was closed with Vicryl followed by skin ally and sterile dressings. Patient tolerated the procedure well without complications. Complications: none Post-operative Condition: stable Disposition: PACU Plan for aftercare: Postop instructions: Patient may weightbear as tolerated on postoperative day 1. Hip precautions to remain in place. No flexion adduction and internal rotation. Patient may shower over the dressing. If water gets underneath the dressing, please remove the dressing completely and ensure that the incision is completely dry. Otherwise, the dressing will come off on at the 1st postoperative visit in 2 weeks. I recommend aspirin, 81 mg b.i.d. for 4 weeks unless they are already on an anticoagulant or aspirin is not tolerated, if this is the case then Lovenox 40 mg subcutaneous for 4 weeks can be used for DVT pr ophylaxis.
--- NOTE | 2024-04-04 11:07 | SUR.OPER ---
CLUSTER OF FLUID-FILLED BLISTERS NOTED POST-OP ON LEFT BUTTOCK. SKIN WAS NOT IN CONTACT WITH ANY ADHESIVE OR OBJECT THAT WOULD CAUSE PRESSURE. CAUSE OF BLISTERS REMAINS UNKNOWN. SURGEON AWARE. NO TREATMENT ORDERED. PACU NOTIFIED IN REPORT.
[2024-04-04] MEDS: ACETAMINOPHEN 325 MG TABLET 650 MG PO (12:43)
--- NOTE | 2024-04-04 12:49 | PT-IP ANOTE ---
PT order received and pt s/p fracture and surgery today. PT reviews op note that states that pt may be WBAT on post-op day 1. Will initiate PT next date.
--- NOTE | 2024-04-04 13:07 | CM.DPNOTE ---
DCP Note SULPHATE TESTER reviewed EMR. Per RN report, OR scheduled for 04/04 at 0800. Spouse and friends have been at bedside. Pending PT/OT recs Friday for DCP needs. Further assessment of need and discussion about dispo options needed once patient has her surgery and had worked with therapies. CM team will plan to follow closely for therapy recommendations and for coordination of eventual discharge plan. CHAGO Villalobos
[2024-04-04] MEDS: OXYCODONE IR 5 MG TABLET PO ×2 (15:32→20:33)
[2024-04-04] MEDS: SENNOSIDES 8.6 MG TABLET 17.2 MG PO (20:32)
[2024-04-04] MEDS: ATORVASTATIN 20 MG TABLET 10 MG PO (20:32)
[2024-04-04] MEDS: MONTELUKAST 10 MG TABLET PO (20:32)
[2024-04-04] MEDS: POTASSIUM CHLORIDE 10 MEQ TAB PO (20:32)
[2024-04-04] MEDS: APIXABAN 5 MG TABLET PO (20:32)
[2024-04-04] MEDS: MAGNESIUM OXIDE 400 MG TABLET PO (20:32)
[2024-04-04] MEDS: diphenhydrAMINE 25 MG TABLET 50 MG PO (20:33)
[2024-04-05] VITALS (8 sets, daily range): BP systolic 83–145; BP diastolic 39–66; PULSE 70–76; RESP 15–19; TEMP 35.9–36.6; O2SAT 95–98
[2024-04-05] MEDS: LACTATED RINGERS 1,000 ML 1000 ML IV (03:40)
--- NOTE | 2024-04-05 03:50 | PC.NURSE ---
Addendum entered by Judi Jensne R.N. 04/05/24 03:53: Blood sugar was 130. Recheck BP during bolus was WNL. Original Note: Around 0330, pt became unresponsive for roughly 10-15 seconds while trying to sit up in bed. Pt assessed afterward, no deficits were noted. BP was 80s/40s, other vitals stable. Notified environmental advisor doctor, 1 L fluid bolus was ordered.
[2024-04-05] MEDS: PANTOPRAZOLE DR 20 MG TABLET PO (05:11)
[2024-04-05 05:39] LABS: Add Manual Diff / Slide Review NO; Basophils Absolute Auto 0 /uL (0-100); Basophils Percent Auto 0.2 % (0-2); Eosinophils Absolute Auto 100 /uL (0-450); Eosinophils Percent Auto 0.6 % (2-4); Hematocrit 31.8 % (36-46); Hemoglobin 11.1 g/dL (12.0-16.0); Lymphocytes Absolute Auto 1500 /uL (1100-4500); Lymphocytes Percent Auto 13.4 % (25-40); Mean Corpuscular Hemoglobin 30.9 PG (26-34); Mean Corpuscular Volume 88.4 fL (80-100); Monocytes Absolute Auto 1700 /uL (0-900); Monocytes Percent Auto 14.9 % (3-14); Neutrophils Absolute Auto 8200 /uL (1500-7000); Neutrophils Percent Auto 70.9 % (50-75); Platelet Count 153 X10^3/uL (150-400); Red Cell Distribution Width 13.8 % (11.6-14.8); White Blood Cell Count 11.6 X10^3/uL (4.5-11.0)
[2024-04-05 05:42] LABS: BUN Creatinine Ratio 25.6 (6-22); Blood Urea Nitrogen 20 mg/dL (7-17); Calcium 7.5 mg/dL (8.4-10.2); Carbon Dioxide 25 mmol/L (22-32); Chloride 88 mmol/L (98-107); Estimated Glomerular Filt Rate > 60 mL/min (>60); Glucose 119 mg/dL (80-110); HEMOLYSIS < 15 (0-50); Potassium 4.5 mmol/L (3.4-5.1)
[2024-04-05 05:53] LABS: Sodium 118 mmol/L (137-145)
--- NOTE | 2024-04-05 06:28 | P.PN_ITS ---
Subjective Subjective Date Patient Seen: 04/05/24 Time Patient Seen: 06:29 Interval history: Kenyetta is sitting up in bed, says she was OOB multiple times yesterday. reports this required 3-person assistance and is inquiring about SNF in the area. They live in the [facility] and plan to return when ppossible. She is on Eliquis chronically for a fib - she has a h/o DVT, denies PE. Abduction pillow currently in place; pt states she does not move too much when sleeping and is not a side sleeper. Exam Vital Signs (past 8 hours): - 04/05/24 00:00 04/05/24 03:30 04/05/24 04:00 Temperature 97.0 F L 97.0 F L Pulse Rate 75 70 70 Respiratory Rate 19 15 16 Blood Pressure 120/60 83/39 L 125/58 L Pulse Oximetry 96 95 96 Oxygen Flow Rate 0 Oxygen Delivery Method Room Air Oxygen Flow Rate 0 Narrative Exam Narrative: 5/5 strength in hip flexors, quadriceps, hamstrings, DF, PF, EHL on right. Sensation to light touch intact throughout RLE. Calf soft, compressible, nontender, SCDs in place. Aquacel dressing CDI. Objective Labs 04/05/24 05:05 04/05/24 05:05 Labs: Laboratory Results - last 24 hr 04/05/24 05:05 WBC 11.6 H RBC 3.60 L Hgb 11.1 L Hct 31.8 L MCV 88.4 MCH 30.9 MCHC 35.0 RDW 13.8 Plt Count 153 Neut % (Auto) 70.9 Lymph % (Auto) 13.4 L [place] % (Auto) 14.9 H Eos % (Auto) 0.6 L Baso % (Auto) 0.2 Neut # (Auto) 8200 H Lymph # (Auto) 1500 [place] # (Auto) 1700 H Eos # (Auto) 100 Baso # (Auto) 0 Sodium 118 L* Potassium 4.5 Chloride 88 L Carbon Dioxide 25 BUN 20 H Creatinine 0.78 Estimated GFR > 60 BUN/Creatinine Ratio 25.6 H Glucose 119 H Calcium 7.5 L PFSH Medical History (Updated 04/04/24 @ 15:05 by Rj Villarreal MD) Hyponatremia History of DVT (deep vein thrombosis) Asthma, mild intermittent Coronary artery disease Allergic rhinitis GERD without esophagitis Mixed hyperlipidemia Essential hypertension Seizure disorder Chronic anticoagulation Paroxysmal atrial fibrillation Surgical History (Updated 04/05/24 @ 06:32 by Merly Lawson PA-C) History of hysterectomy History of resection of meningioma Social History household members: spouse Smoking Status: Never smoker Assessment & Plan Post-op Assessment and plan (1) Status post hip hemiarthroplasty: Assessment and Plan narrative: 1) PT to eval and treat. WBAT to right leg, posterior hip precautions. 2) Pt states she does not move around much when she sleeps. She is not confused or agitated and does not need to use hip abduction pillow in bed unless she is more comfortable. 3) Continue Eliquis for VTE prophylaxis. Recommend SCDs on and functioning at all times when in bed. 4) F/u w/ ortho in 2 weeks for wound check, and in 6 weeks w/ Dr Morrison for repeat imaging. If pt has returned home, wound check/staple removal can be done at PCPs office or other provider. Postoperative Procedures: Procedures Operation Date: 04/04/24 08:00 Actual Procedure Side Surgeon p Right Hip Hemiarthroplasty Right Elijah Morrison MD Postoperative day: 1
[2024-04-05] MEDS: OXYCODONE IR 5 MG TABLET PO ×3 (07:02→18:39)
[2024-04-05] MEDS: DIVALPROEX DR 250 MG TABLET 750 MG PO ×2 (09:00→20:22)
[2024-04-05] MEDS: APIXABAN 5 MG TABLET PO ×2 (09:00→20:21)
[2024-04-05] MEDS: FUROSEMIDE 40 MG TABLET PO (09:01)
[2024-04-05] MEDS: DOCUSATE 100 MG CAPSULE PO (09:01)
[2024-04-05] MEDS: SODIUM CHLORIDE 0.9% FLUSH 10 ML IV (09:01)
[2024-04-05] MEDS: POTASSIUM CHLORIDE 10 MEQ TAB PO ×2 (09:01→20:22)
[2024-04-05 09:15] LABS: BUN Creatinine Ratio 24.4 (6-22); Blood Urea Nitrogen 19 mg/dL (7-17); Calcium 7.8 mg/dL (8.4-10.2); Carbon Dioxide 27 mmol/L (22-32); Chloride 87 mmol/L (98-107); Estimated Glomerular Filt Rate > 60 mL/min (>60); Glucose 114 mg/dL (80-110); HEMOLYSIS < 15 (0-50); Potassium 4.7 mmol/L (3.4-5.1)
[2024-04-05 09:18] LABS: Sodium 119 mmol/L (137-145)
--- NOTE | 2024-04-05 09:45 | OT.IP.EVAL ---
Current Diagnoses Mixed hyperlipidemia (04/02/24) Hypo-osmolality and hyponatremia (04/02/24) Epilepsy, unspecified, not intractable, without status epilepticus (04/02/24) Essential (primary) hypertension (04/02/24) Atherosclerotic heart disease of [place] coronary artery without angina pectoris (04/02/24) Paroxysmal atrial fibrillation (04/02/24) Other allergic rhinitis (04/02/24) Mild intermittent asthma, uncomplicated (04/02/24) Gastro-esophageal reflux disease without esophagitis (04/02/24) Displaced intertrochanteric fracture of right femur, initial encounter for closed fracture (04/02/24) detention (current) use of anticoagulants (04/02/24) Personal history of neoplasm of uncertain behavior (04/02/24) Personal history of other venous thrombosis and embolism (04/02/24) Acquired absence of both cervix and uterus (04/02/24) Presence of unspecified artificial hip joint (04/02/24) Other specified postprocedural states (04/02/24) Surgery Performed Operation Date: 04/04/24 08:00 Actual Procedures p Right Hip Hemiarthroplasty(Right) - Elijah Morrison MD Past Medical History (Last Updated 04/04/24 @ 15:05 by Rj Villarreal MD) Allergic rhinitis Asthma, mild intermittent Chronic anticoagulation Coronary artery disease Essential hypertension GERD without esophagitis History of DVT (deep vein thrombosis) Hyponatremia Mixed hyperlipidemia Paroxysmal atrial fibrillation Seizure disorder Surgical History (Last Reviewed 04/04/24 @ 15:03 by Rj Villarreal MD) History of hysterectomy History of resection of meningioma Occupational Therapy Inpatient Evaluation/Re-Eval M1 PT/OT-IP Prior Functional Status Start: 04/04/24 12:47 Freq: NEEDED Status: Active Protocol: Document 04/05/24 14:06 CGR (Rec: 04/05/24 14:21 CGR [id number]) Medical Review Prior Functional Status Medical History Reviewed Yes Communication Pt is an effective verbal communicator but appears to have some cognitive deficits. Mobility and Gait Pt was IND in all functional mobility and is rather active at baseline. Activities of Daily Living and IADL's Pt was IND in all ADLs and functional mobility at baseline. Social History Household Members spouse Living Arrangements House Additional Social History Comment home set up not obtained as pt is visiting from [facility] and will either be discharging to a friends home or hotel till she is improved enough to fly home. M2 OT-IP Current Condition Start: 04/05/24 14:06 Freq: Status: Active Protocol: Document 04/05/24 14:06 CGR (Rec: 04/05/24 14:21 CGR [id number]) Occupational Therapy Current Condition Current Condition Evaluation Date 04/05/24 Treatment Diagnosis fall with R hip fx, now s/p R BART Diagnosis Onset Date 04/02/24 Post Operative Precautions Posterior Hip Precautions No Hip Flexion > 90 degrees,No Hip Internal Rotation,No Hip Adduction M3 OT- IP Subjective and Pain Start: 04/05/24 14:06 Freq: Status: Active Protocol: Document 04/05/24 14:06 CGR (Rec: 04/05/24 14:21 CGR [id number]) OT- Subjective Occupational Therapy Visit Type Type Initial Evaluation Visit Start Time 08:56 Visit Stop Time 09:45 Notes Pt's present throught session. OT Pain Assessment Pain When Pain Assessed At Rest Pain Present Pain Present Denied Pain M4 OT- IP ADL's Start: 04/05/24 14:06 Freq: Status: Active Protocol: Document 04/05/24 14:06 CGR (Rec: 04/05/24 14:21 CGR [id number]) OT [id number] General Evaluation Self-Feeding Ability Independent Comments OT Self-Feeding Comments Pt eating breakfast when OT entered. OT ADL-Grooming Comments OT Grooming Comments not performed OT ADL-Oral Care Comments Oral Care Comments not performed OT ADL-Dressing General Eval Lower Body Dressing Ability Total Assistance Areas Needing Assistance Socks OT ADL-Toileting Comments OT Toileting Comments not performed OT ADL-Bathing Comments OT Bathing Comments not performed M5 OT- IP IADL's Start: 04/05/24 14:06 Freq: Status: Active Protocol: Document 04/05/24 14:06 CGR (Rec: 04/05/24 14:21 CGR [id number]) OT-Instrumental Activities of Daily Living Deficits IADL Deficits Identified Deficits Home Safety Awareness Awareness of Need for Assistance at Home Decreased Awareness Medication Management Medication Management Caregiver Administers Money Management Money Management Caregiver Provides Assistance Meal Preparation Meal Preparation Caregiver Provides Assist Employee Relations Representative Employee Relations Representative Caregiver Provides Assist M6 OT- IP Functional Cognition Start: 04/05/24 14:06 Freq: Status: Active Protocol: Document 04/05/24 14:06 CGR (Rec: 04/05/24 14:21 CGR [id number]) Cognitive Factors Limiting Selfcare Function Cognitive Ability Level of Alertness Alert Patient Orientation Name,Age,Birthday,Month,Date, Year,Day of Week,Place, Situation Attention Span Ability Capable of Focused Attention, Capable of Sustained Attention Ability to Follow Commands Able to Follow One Step Commands with Increased Time, Able to Follow One Step Commands with Repetition Cognitive Comments Cognitive Assessment Comments Pt states hx of brain sx. Pt needs instrustions repeated and had difficulty with motor planning. OT- Vision and Hearing OT- Hearing Assessment OT- Hearing Assessment WFL OT- Vision Assessment Visual Acuity WFL Visual Attentiveness WFL Occular Pursuits WFL M7 OT- IP Mobility and Balance Start: 04/05/24 14:06 Freq: Status: Active Protocol: Document 04/05/24 14:06 CGR (Rec: 04/05/24 14:21 CGR [id number]) OT- Bed Mobility Assessment Supine to Sit Supine to Sit Assist Moderate Assistance,Maximum Assistance,1 Person Assistance Sit to Supine Sit to Supine Assist Moderate Assistance,Maximum Assistance,2 Person Assistance Scooting Scooting to Edge of Bed Maximum Assistance,1 Person Assistance OT-Transfer Assessment Sit to and From Stand Sit to and from Stand Moderate Assistance,Maximum Assistance,1 Person Assistance Transfers Transfer Ability Moderate Assistance,Maximum Assistance,1 Person Assistance Technique Transfer Destination Bed,Chair Transfer Technique Stand Step Pivot Devices Transfer Assistive Devices Gait Belt Comments Mobility Comments Pt initially attemtped to stand with FWW but was unable to maintain standing. Pt then stood holding therapist in plans for stand pivot transfer then returned to sitting. Pt' s BP dropped from 138/63 sitting EOb to 124/51 after standing for ~30 seconds and returning to sitting. Her BP did increase after returning to sitting and pt requesting to get up to chair. Pt then performed stand pivot transfer to chair with mod to max a and sat in chair with increasing symptoms on low BP. BP 118/51 and holding steady but nursing and therapist agreed that pt should return to bed given sleepy nature since trnasfer. Pt transfered back to bed with 2 person assist for safety and left supine in bed. Call button within reach and nursing present in room. OT- Gait Assessment Comments Gait Ability Comments not performed OT- Balance Assessment Sitting Balance and Reactions Static Sitting Balance Ability Poor Dynamic Sitting Balance Ability Poor Comments Other Balance Tests/Deviations/Treatment pt leans heavy to the left : throughout session. M8 OT- IP Objective Assessments Start: 04/05/24 14:06 Freq: Status: Active Protocol: Document 04/05/24 14:06 CGR (Rec: 04/05/24 14:21 CGR [id number]) OT Gross Range of Motion Upper Extremity Range of Motion Assessment Within Functional Limits OT Strength Upper Extremity Strength Assessment Within Functional Limits OT- Coordination Assessment Upper Extremity Finger to Nose Test Within Functional Limits Finger Tapping Test Within Functional Limits OT-Muscle Tone Assessment Muscle Tone WNL Yes OT Sensation Assessment Edema Edema Absent M9 OT- IP Assessment and Plan Start: 04/05/24 14:06 Freq: Status: Active Protocol: Document 04/05/24 14:06 CGR (Rec: 04/05/24 14:21 CGR [id number]) OT Summary Assessment and Plan Potential Rehabilitation Potential Good Analytic Complexity at Evaluation Moderate Summary OT Impairments Pain,Strength,Balance, Functional Cognition, Functional Mobility,Grooming, Dressing,Toileting,Bathing, Toilet Transfers,Shower Transfers,Activity Tolerance Progress Towards Goals Slow Progress due to Pain,Slow Progress due to Medical Issues Assessment Summary Pt presents as a moderate complexity evaluation s/p admit for fall with R hip fx. Pt underwent R BART posterior approach. Pt with symptomatic orthostatic hypotention with movement today. Notified MD in rounds. Pt will continue to benefit from therapy services and will likely need SNF upon discharge. Goals Grooming Goal Independent Dressing Goal Independent Toileting Goal Independent Bathing Goal Independent Toilet Transfer Goal Independent Shower Transfer Goal Independent Days to Meet Goals 15 Frequency of Treatment Frequency Of Treatment Once a Day Treatment Plan OT Treatment Plan ADL Training,Functional Cognition Training,Functional Mobility,Patient/Family Education,Discharge Planning Other Treatment Recommendations and Next BSC transfer, LB dressing with Treatment Focus DME Discharge Recommendations OT Discharge Recommendations SNF Rehab Transportation Needs at Discharge Stretcher/Ambulance
[2024-04-05] MEDS: FLUTICASONE INH ×2 (10:00→20:21)
[2024-04-05] MEDS: SALMETEROL INH ×2 (10:00→20:21)
--- NOTE | 2024-04-05 10:16 | PT-IP ANOTE ---
Pt discussed at rounds and PT steps in with OT to speak with pt and . Doctor asks PT to hold today d/t low sodium after treated for hypotension this a.m. Will con't PT assessment efforts next date.
[2024-04-05 10:29] LABS: Sodium Urine Random < 5 mmol/L (30-90)
[2024-04-05] MEDS: ACETAMINOPHEN 325 MG TABLET 650 MG PO ×2 (11:30→18:39)
[2024-04-05 14:38] LABS: BUN Creatinine Ratio 21.3 (6-22); Blood Urea Nitrogen 17 mg/dL (7-17); Calcium 7.4 mg/dL (8.4-10.2); Carbon Dioxide 27 mmol/L (22-32); Chloride 88 mmol/L (98-107); Estimated Glomerular Filt Rate > 60 mL/min (>60); Glucose 146 mg/dL (80-110); HEMOLYSIS < 15 (0-50); Potassium 4.2 mmol/L (3.4-5.1)
[2024-04-05 14:44] LABS: Sodium 116 mmol/L (137-145)
[2024-04-05] MEDS: SODIUM CHLORIDE 0.9% 1,000 ML 1000 ML IV (15:20)
--- NOTE | 2024-04-05 15:49 | CM.DPC ---
DCP Cont: Per MD, pt having bp and sodium issues today with symptoms and PT/OT to hold for today and attempt again tomorrow. OT met bedside with pt and spouse and gathered some information and confirmed pt orthostatic and will attempt again tomorrow. Discharge needs unclear at this time pending PT eval and further OT to determine discharge to friend's house vs flying back home to [facility] with spouse pending mobility. SW to follow closely in the AM for PT/OT recommendations. CHAGO Farley
--- NOTE | 2024-04-05 16:27 | P.PN_ITS ---
Subjective Subjective Date Patient Seen: 04/04/24 Time Patient Seen: 14:30 Interval history: The patient underwent right hip gloria arthroplasty yesterday. Overnight was hypotensive, given LR bolus of 1L. Sodium had fallen from 134 on admit to 127 yesterday to 118 this AM. No confusion today, but patient is markedly weak. Ordered repeat BMP given precipitous drop and concern for possible lab error which showed sodium as 119. Urine sodium ordered as did not improve with fluids presumably overnight and given patients history of previous intracranial hemorrhage / possible SIADH vs hypovolemia given patient had received fluids overnight. Urine sodium was <5. She was eating earlier today and had encouraged PO intake only given initial improvement from 118 to 119 but repeat sodium later was 116. Ordered another 1L NS bolus and will start normal saline. If not improving will need 3% NS and move to ICU. Exam Vital Signs (past 8 hours): - 04/05/24 11:47 Temperature 97.7 F Pulse Rate 76 Respiratory Rate 15 Blood Pressure 134/57 L Pulse Oximetry 97 Oxygen Flow Rate 0 Oxygen Delivery Method Room Air Oxygen Flow Rate 0 Narrative Exam Narrative: GENERAL: This is a well-nourished, well-developed patient, in no apparent distress. EYES: Pupils equal round and reactive. Extraocular motions intact. ENT: Mucous membranes pink and moist. NECK: Supple, nontender, no meningeal signs. CARDIOVASCULAR: Regular rate and rhythm without murmurs, gallops, or rubs. RESPIRATORY: Clear to auscultation. GASTROINTESTINAL: Abdomen soft, non-tender, nondistended. EXTREMITIES: No clubbing, cyanosis, or edema. Right hip dressing in place, clean, dry and intact. NEUROLOGIC: Alert, oriented, speech fluent, full upper and lower motor strength, no focal deficits evident. DERMATOLOGIC: Right elbow abrasion with dressing in place. Objective Labs 04/05/24 05:05 04/05/24 13:53 Labs: Laboratory Results - last 24 hr 04/05/24 04/05/24 04/05/24 05:05 08:35 08:50 WBC 11.6 H RBC 3.60 L Hgb 11.1 L Hct 31.8 L MCV 88.4 MCH 30.9 MCHC 35.0 RDW 13.8 Plt Count 153 Neut % (Auto) 70.9 Lymph % (Auto) 13.4 L [place] % (Auto) 14.9 H Eos % (Auto) 0.6 L Baso % (Auto) 0.2 Neut # (Auto) 8200 H Lymph # (Auto) 1500 [place] # (Auto) 1700 H Eos # (Auto) 100 Baso # (Auto) 0 Sodium 118 L* 119 L* Potassium 4.5 4.7 Chloride 88 L 87 L Carbon Dioxide 25 27 BUN 20 H 19 H Creatinine 0.78 0.78 Estimated GFR > 60 > 60 BUN/Creatinine Ratio 25.6 H 24.4 H Glucose 119 H 114 H Calcium 7.5 L 7.8 L Ur Random Sodium < 5 L 04/05/24 13:53 WBC RBC Hgb Hct MCV MCH MCHC RDW Plt Count Neut % (Auto) Lymph % (Auto) [place] % (Auto) Eos % (Auto) Baso % (Auto) Neut # (Auto) Lymph # (Auto) [place] # (Auto) Eos # (Auto) Baso # (Auto) Sodium 116 L* Potassium 4.2 Chloride 88 L Carbon Dioxide 27 BUN 17 Creatinine 0.80 Estimated GFR > 60 BUN/Creatinine Ratio 21.3 Glucose 146 H Calcium 7.4 L Ur Random Sodium [facility] Medical History (Updated 04/04/24 @ 15:05 by Rj Villarreal MD) Hyponatremia History of DVT (deep vein thrombosis) Asthma, mild intermittent Coronary artery disease Allergic rhinitis GERD without esophagitis Mixed hyperlipidemia Essential hypertension Seizure disorder Chronic anticoagulation Paroxysmal atrial fibrillation Surgical History (Updated 04/05/24 @ 06:32 by Merly Lawson PA-C) History of hysterectomy History of resection of meningioma Social History household members: spouse Smoking Status: Never smoker Assessment & Plan Assessment & Plan narrative: (1) Closed pathologic intertrochanteric fracture of right femur: - s/p orthopedic interventions with hemiarthroplasty - will hold on further PT/OT evaluations pending improvement in hyponatremia, to resume after improvement, hopefully tomorrow. - pain control for now with as needed oral medications. 2. Acute hyponatremia, not present on admission. - Na trend 134 on admit, 127 yesterday, 118 this AM. Repeat was 119. urine sodium is <5, even with home diuretic given today, this is consistent with hypovolemia rather than an SIADH at this time. Attempted oral rehydration given unclear picture this morning with minimal symptoms and no urine sodium level at the time (and initial increase from 118 to 119), but sodium dropped to 116 on repeat this afternoon. - With sodium of 116, gave 1L NS bolus, continue NS @100 cc after bolus. If no improvement in 4 hours with normal saline transfer to ICU for 3% NS. Otherwise given no acute confusion if slow improvement will continue NS. - Urine sodium <5 argues against SIADH, cerebral salt wasting (given hx of intracranial hemorrhage). - hold furosemide - continue senior civil engineer with tele. No acute events noted thus far. 3. paroxysmal afib on oral anticoagulation. - continue apixban, currently not on rate control medications. 4 History of resection of meningioma: Status: Acute 5 Seizure disorder: - continue home depakote 750 mg BID 6 Essential hypertension: will hold home furosemide for now given above hypovolemia and hyponatremia. 7 Mixed hyperlipidemia: replaced home pitavastatin with formulary atorvastatin. 8 GERD without esophagitis: Status: Acute 9 Allergic rhinitis: 10 Asthma, mild intermittent: - albuterol neb as needed only. 11 History of hysterectomy: 12 History of DVT (deep vein thrombosis): Code: Full, surrogate is patient's spouse DVT: continues on apixaban Dispo: Possible SNF, anticipate discharge in 3-4 days, pending sodium improvement then repeat PT/OT evaluations. Discussed with patient's family, bedside staff to contribute to the above history, assessment and plan. Time-Based Coding :: [TOTAL MINUTES] spent with patient and on the chart (including review of chart, obtaining history, exam, reviewing outside data, placing orders, documenting exam and treatment plan, and counseling patient) on [DATE].
[2024-04-05] MEDS: SODIUM CHLORIDE 0.9% 1,000 ML 100 ML IV (17:24)
[2024-04-05 18:40] LABS: BUN Creatinine Ratio 19.8 (6-22); Blood Urea Nitrogen 17 mg/dL (7-17); Calcium 7.1 mg/dL (8.4-10.2); Carbon Dioxide 25 mmol/L (22-32); Chloride 88 mmol/L (98-107); Estimated Glomerular Filt Rate > 60 mL/min (>60); Glucose 136 mg/dL (80-110); HEMOLYSIS < 15 (0-50); Potassium 4.4 mmol/L (3.4-5.1)
[2024-04-05 18:42] LABS: Sodium 118 mmol/L (137-145)
[2024-04-05] MEDS: SENNOSIDES 8.6 MG TABLET 17.2 MG PO (20:21)
[2024-04-05] MEDS: MONTELUKAST 10 MG TABLET PO (20:22)
[2024-04-05] MEDS: MAGNESIUM OXIDE 400 MG TABLET PO (20:22)
[2024-04-05] MEDS: ATORVASTATIN 20 MG TABLET 10 MG PO (20:25)
[2024-04-05 22:06] LABS: BUN Creatinine Ratio 23.6 (6-22); Blood Urea Nitrogen 17 mg/dL (7-17); Calcium 7.1 mg/dL (8.4-10.2); Carbon Dioxide 26 mmol/L (22-32); Chloride 90 mmol/L (98-107); Estimated Glomerular Filt Rate > 60 mL/min (>60); Glucose 111 mg/dL (80-110); HEMOLYSIS 30 (0-50); Potassium 4.5 mmol/L (3.4-5.1)
[2024-04-05 22:10] LABS: Sodium 116 mmol/L (137-145)
[2024-04-05] MEDS: SODIUM CHLORIDE 1,000 MG TABLET 1000 MG PO (22:50)
[2024-04-06] VITALS: BP 150/64; PULSE 73; RESP 16; TEMP 35.7; O2SAT 99
[2024-04-06] MEDS: SODIUM CHLORIDE 1,000 MG TABLET 1000 MG PO ×4 (02:01→20:30)
[2024-04-06] MEDS: OXYCODONE IR 5 MG TABLET PO ×4 (02:12→21:11)
[2024-04-06] MEDS: ACETAMINOPHEN 325 MG TABLET 650 MG PO ×3 (02:12→16:54)
[2024-04-06] MEDS: SODIUM CHLORIDE 0.9% 1,000 ML 100 ML IV (02:13)
[2024-04-06 03:49] LABS: Add Manual Diff / Slide Review NO; Basophils Absolute Auto 100 /uL (0-100); Basophils Percent Auto 0.9 % (0-2); Eosinophils Absolute Auto 300 /uL (0-450); Eosinophils Percent Auto 2.6 % (2-4); Hematocrit 29.1 % (36-46); Hemoglobin 10.3 g/dL (12.0-16.0); Lymphocytes Absolute Auto 1800 /uL (1100-4500); Lymphocytes Percent Auto 18.3 % (25-40); Mean Corpuscular HGB Conc 35.2 % (30-36); Mean Corpuscular Hemoglobin 30.6 PG (26-34); Monocytes Absolute Auto 1600 /uL (0-900); Monocytes Percent Auto 16.2 % (3-14); Neutrophils Absolute Auto 6000 /uL (1500-7000); Platelet Count 163 X10^3/uL (150-400); Red Blood Cell Count 3.35 X10^6/uL (4.0-5.2); Red Cell Distribution Width 13.7 % (11.6-14.8); White Blood Cell Count 9.7 X10^3/uL (4.5-11.0)
[2024-04-06 03:52] LABS: BUN Creatinine Ratio 16.2 (6-22); Blood Urea Nitrogen 12 mg/dL (7-17); Calcium 7.5 mg/dL (8.4-10.2); Carbon Dioxide 25 mmol/L (22-32); Chloride 93 mmol/L (98-107); Estimated Glomerular Filt Rate > 60 mL/min (>60); Glucose 114 mg/dL (80-110); HEMOLYSIS < 15 (0-50); Potassium 4.3 mmol/L (3.4-5.1)
[2024-04-06 04:00] VITALS: BP 128/53; PULSE 64; RESP 16; TEMP 35.7; O2SAT 95
[2024-04-06 04:04] LABS: Sodium 119 mmol/L (137-145)
[2024-04-06] MEDS: PANTOPRAZOLE DR 20 MG TABLET PO (05:01)
--- NOTE | 2024-04-06 07:44 | P.PN_ITS ---
Subjective Subjective Date Patient Seen: 04/06/24 Time Patient Seen: 07:44 Interval history: Pain is moderate. No fever or chills. No nausea or vomiting Exam Vital Signs (past 8 hours): - 04/06/24 00:00 04/06/24 04:00 Temperature 96.3 F L 96.3 F L Pulse Rate 73 64 Respiratory Rate 16 16 Blood Pressure 150/64 H 128/53 L Pulse Oximetry 99 95 Oxygen Flow Rate 0 0 Oxygen Delivery Method Room Air Oxygen Flow Rate 0 Narrative Exam Narrative: 78-year-old female in no acute distress. Right hip dressing shows scant drainage. Neurovascular status is intact bilateral lower extremities. Const General: cooperative and comfortable Nutritional Appearance: average body habitus Orientation: alert Resp Effort & Inspection: normal respiratory effort and able to speak in complete sentences Objective Labs 04/06/24 03:25 04/06/24 03:25 Labs: Laboratory Results - last 24 hr 04/05/24 04/05/24 04/05/24 08:35 08:50 13:53 WBC RBC Hgb Hct MCV MCH MCHC RDW Plt Count Neut % (Auto) Lymph % (Auto) [place] % (Auto) Eos % (Auto) Baso % (Auto) Neut # (Auto) Lymph # (Auto) [place] # (Auto) Eos # (Auto) Baso # (Auto) Sodium 119 L* 116 L* Potassium 4.7 4.2 Chloride 87 L 88 L Carbon Dioxide 27 27 BUN 19 H 17 Creatinine 0.78 0.80 Estimated GFR > 60 > 60 BUN/Creatinine Ratio 24.4 H 21.3 Glucose 114 H 146 H Calcium 7.8 L 7.4 L Magnesium Ur Random Sodium < 5 L 04/05/24 04/05/24 04/06/24 18:20 21:49 03:25 WBC 9.7 RBC 3.35 L Hgb 10.3 L Hct 29.1 L MCV 87.0 MCH 30.6 MCHC 35.2 RDW 13.7 Plt Count 163 Neut % (Auto) 62.0 Lymph % (Auto) 18.3 L [place] % (Auto) 16.2 H Eos % (Auto) 2.6 Baso % (Auto) 0.9 Neut # (Auto) 6000 Lymph # (Auto) 1800 [place] # (Auto) 1600 H Eos # (Auto) 300 Baso # (Auto) 100 Sodium 118 L* 116 L* 119 L* Potassium 4.4 4.5 4.3 Chloride 88 L 90 L 93 L Carbon Dioxide 25 26 25 BUN 17 17 12 Creatinine 0.86 0.72 0.74 Estimated GFR > 60 > 60 > 60 BUN/Creatinine Ratio 19.8 23.6 H 16.2 Glucose 136 H 111 H 114 H Calcium 7.1 L 7.1 L 7.5 L Magnesium 2.0 Ur Random Sodium PFSH Medical History (Updated 04/04/24 @ 15:05 by Rj Villarreal MD) Hyponatremia History of DVT (deep vein thrombosis) Asthma, mild intermittent Coronary artery disease Allergic rhinitis GERD without esophagitis Mixed hyperlipidemia Essential hypertension Seizure disorder Chronic anticoagulation Paroxysmal atrial fibrillation Surgical History (Updated 04/05/24 @ 06:32 by Merly Lawson PA-C) History of hysterectomy History of resection of meningioma Social History household members: spouse Smoking Status: Never smoker Assessment & Plan Post-op Postoperative Procedures: Procedures Operation Date: 04/04/24 08:00 Actual Procedure Side Surgeon p Right Hip Hemiarthroplasty Right Elijah Morrison MD Postoperative day: 2 Postoperative status narrative: Status post right hip hemiarthroplasty April 04, 2024 Acute hyponatremia, not present on admission, paroxysmal AFib on oral anticoagulation, history of resection meningioma, seizure disorder, essential hypertension, hyperlipidemia, GERD followed by hospitalist Postoperative plan: routine post-op care Postoperative plan narrative: Weight-bearing as tolerated right lower extremity. Posterior hip precautions. Eliquis and SCDs For DVT prophylaxis Follow up Orthopedics in 2 weeks for wound check and in [address] Morrison for repeat imaging. If patient has returned home, wound check/staple removal can be done at primary care provider's office. Disposition, to be determined
[2024-04-06 08:00] VITALS: BP 123/69; PULSE 71; RESP 17; TEMP 36.6; O2SAT 100
[2024-04-06] MEDS: DOCUSATE 100 MG CAPSULE PO (08:22)
[2024-04-06] MEDS: DIVALPROEX DR 250 MG TABLET 750 MG PO ×2 (08:22→20:31)
[2024-04-06] MEDS: APIXABAN 5 MG TABLET PO ×2 (08:23→20:30)
[2024-04-06] MEDS: POTASSIUM CHLORIDE 10 MEQ TAB PO ×2 (08:24→20:30)
[2024-04-06 08:53] LABS: BUN Creatinine Ratio 13.9 (6-22); Blood Urea Nitrogen 11 mg/dL (7-17); Calcium 7.5 mg/dL (8.4-10.2); Carbon Dioxide 25 mmol/L (22-32); Chloride 94 mmol/L (98-107); Estimated Glomerular Filt Rate > 60 mL/min (>60); Glucose 99 mg/dL (80-110); HEMOLYSIS < 15 (0-50); Potassium 4.6 mmol/L (3.4-5.1); Sodium 121 mmol/L (137-145)
[2024-04-06] MEDS: FLUTICASONE INH ×2 (09:06→20:32)
[2024-04-06] MEDS: SALMETEROL INH ×2 (09:06→20:32)
--- NOTE | 2024-04-06 10:00 | PT.IIE ---
Current Diagnoses Mixed hyperlipidemia (04/02/24) Hypo-osmolality and hyponatremia (04/02/24) Epilepsy, unspecified, not intractable, without status epilepticus (04/02/24) Essential (primary) hypertension (04/02/24) Atherosclerotic heart disease of [place] coronary artery without angina pectoris (04/02/24) Paroxysmal atrial fibrillation (04/02/24) Other allergic rhinitis (04/02/24) Mild intermittent asthma, uncomplicated (04/02/24) Gastro-esophageal reflux disease without esophagitis (04/02/24) Displaced intertrochanteric fracture of right femur, initial encounter for closed fracture (04/02/24) FPC (current) use of anticoagulants (04/02/24) Personal history of neoplasm of uncertain behavior (04/02/24) Personal history of other venous thrombosis and embolism (04/02/24) Acquired absence of both cervix and uterus (04/02/24) Presence of unspecified artificial hip joint (04/02/24) Other specified postprocedural states (04/02/24) Surgery Performed Operation Date: 04/04/24 08:00 Actual Procedures p Right Hip Hemiarthroplasty(Right) - Elijah Morrison MD Surgical History (Last Reviewed 04/04/24 @ 15:03 by Rj Villarreal MD) History of hysterectomy History of resection of meningioma Medical History (Last Updated 04/04/24 @ 15:05 by Rj Villarreal MD) Allergic rhinitis Asthma, mild intermittent Chronic anticoagulation Coronary artery disease Essential hypertension GERD without esophagitis History of DVT (deep vein thrombosis) Hyponatremia Mixed hyperlipidemia Paroxysmal atrial fibrillation Seizure disorder Physical Therapy Inpatient Evaluation/Re-Eval M1 PT/OT-IP Prior Functional Status Start: 04/04/24 12:47 Freq: NEEDED Status: Active Protocol: Document 04/05/24 14:06 CGR (Rec: 04/05/24 14:21 CGR [id number]) Medical Review Prior Functional Status Medical History Reviewed Yes Communication Pt is an effective verbal communicator but appears to have some cognitive deficits. Mobility and Gait Pt was IND in all functional mobility and is rather active at baseline. Activities of Daily Living and IADL's Pt was IND in all ADLs and functional mobility at baseline. Social History Household Members spouse Living Arrangements House Additional Social History Comment home set up not obtained as pt is visiting from [facility] and will either be discharging to a friends home or hotel till she is improved enough to fly home. M1 PT/OT-IP Prior Functional Status Start: 04/05/24 14:06 Freq: NEEDED Status: Active Protocol: Document 04/06/24 10:00 AB (Rec: 04/06/24 12:22 [id number]) Medical Review Prior Functional Status Medical History Reviewed Yes Communication able to make needs known; with memory issues Mobility and Gait pt stated that she was independent with all mobilities and ambulation without AD Activities of Daily Living and IADL's per OT note: Pt was IND in all ADLs and functional mobility at baseline. Social History Household Members spouse Living Arrangements House Number of Floors (Floors) One Floor Home Environment Ramp Additional Social History Comment pt lives in [place] and is only in [place] to visit. pt plans to go to a friend's house upon d/c before flying back to [place]. spouse/son stated that they have not seen the friend's house but as far as they know, it is just a one level house with a ramp to enter. unable to provide other details M2 PT-IP Current Condition Start: 04/04/24 12:47 Freq: NEEDED Status: Active Protocol: Document 04/06/24 10:00 AB (Rec: 04/06/24 12:22 [id number]) Physical Therapy Current Condition Current Condition Evaluation Date 04/06/24 Treatment Diagnosis R hip fx s/p R hip hemiarthroplasty; difficulty in walking Onset Date 04/02/24 M3 PT-IP Subjective Start: 04/04/24 12:47 Freq: NEEDED Status: Active Protocol: Document 04/06/24 10:00 AB (Rec: 04/06/24 12:22 [id number]) Subjective Physical Therapy Visit Type Type Initial Evaluation Visit Start Time 10:00 Visit Stop Time 10:55 Notes pt on hold yesterday due to low sodium level. pt currently has sodium level of 121. checked with nurse and stated that hospitalist cleared pt to do PT today. Number of BREAD SUPERVISOR Visits 0 Physical Therapy Visit Comments Patient Comments agreeable to do PT Therapy Pain Assessment Pain When Pain Assessed At Rest Pain Present Pain Present Pain Reported Location right hip Intensity 2 Scale Used Numeric (0 - 10) Pain Behaviors Guarding Pain Management Techniques Distraction,Modification of Treatment,Re-positioning, Timing of Activity with Medications M4 PT-IP Mobility and Gait Start: 04/04/24 12:47 Freq: NEEDED Status: Active Protocol: Document 04/06/24 10:00 AB (Rec: 04/06/24 12:22 AB [id number]) PT-Bed Mobility Assessment Sit to Supine Sit to Supine Maximum Assistance,1 Person Assistance,Head of Bed Elevated PT-Transfer Assessment Sit to and From Stand Sit to and from Stand Maximum Assistance,1 Person Assistance,2 Person Assistance ,Use of Upper Extremities Equipment Transfer Assistive Device Gait Belt,Front Wheeled Walker Orthotic/Prosthetic Devices or Brace: No Transfers Transfer Destination Bed Transfer Technique ambulated Transfer Ability Level of Assist Maximum Assistance,1 Person Assistance,Use of Upper Extremities Comments Mobility Comments pt sitting on the chair. sposue and son in room with pt . obtained PLOF. pt is visiting from [place] and plans to go home to a friend's house upon d/c but unable to provide much infor regarding pt's house. post op folder provided and reviewed contents with pt. educated pt regarding R hip posterior precautions. pt recalled 2/3 precautions. pt completed sit to stand max A x 1-2 and max cues. required x 3 attempts to complete. pt ambulated to the bed using FWW ~ 15 ft max A and max cues. cued for R quads activation. required assist to stabilize RLE. pt sat on EOB. stated that she is really tired and wants to take a nap. completed sit to supine max A and max cues. positioned pt in bed. call light and table placed within reach. Gait Assessment Gait Gait Assistance Required: Maximum Assistance,1 Person Assist Distance (Feet) 15 Able to Maintain Weight Bearing Status Yes During Gait Assistive Devices Assistive Device Gait Belt,Front Wheeled Walker Orthotic/Prosthetic Devices or Brace: No Gait Deviations General Gait Pattern Decreased Stride Length, Decreased Feet Clearance Factors Limiting Gait Function Factors Limiting Gait Function Decreased Activity Tolerance, Decreased Strength,Difficulty Following Directions,Limited Range of Motion,Pain,Poor Balance,Poor Safety Awareness PT-Balance Assessment Sitting Balance and Reactions Static Sitting Balance Ability Good Dynamic Sitting Balance Ability Fair Standing Balance and Reactions Static Standing Balance Ability Poor Dynamic Standing Balance Ability Poor Device Used FWW M5 PT-IP Objective Assessments Start: 04/04/24 12:47 Freq: NEEDED Status: Active Protocol: Document 04/06/24 10:00 AB (Rec: 04/06/24 12:22 AB [id number]) Orientation Orientation/Cognition Level of Alertness Alert Orientation Name,Place,Situation Memory Description Short Term Impaired Gross Range of Motion Lower Extremity ROM Assessment Within Functional Limits Strength Lower Extremity Strength Assessment Right Impaired Hip 3+/5 Knee 3+/5 Coordination Assessment Gross Coordination Gross Coordination WNL Muscle Tone Muscle Tone WNL Yes M6 PT-IP Treatment Start: 04/04/24 12:47 Freq: NEEDED Status: Active Protocol: Document 04/06/24 10:00 AB (Rec: 04/06/24 12:22 [id number]) Physical Therapy Treatment Education Education Provided Precautions,Weight Bearing Status,Post-Op Packet,Safety M7 PT-IP Assessment and Plan Start: 04/04/24 12:47 Freq: NEEDED Status: Active Protocol: Document 04/06/24 10:00 AB (Rec: 04/06/24 12:22 [id number]) PT Summary Assessment and Plan Potential Rehabilitation Potential Fair Status of Condition at Evaluation Evolving Summary Impairments Pain,ROM,Strength,Balance, Coordination,Sensation,Tone, Cognition,Bed Mobility, Transfers,Gait,Activity Tolerance Assessment Summary pt is a 78 y/o F s/p fall and sustained R hip intertrochanteric fx and underwent R hip hemiarthroplasty POD 2. pt has R hip posterior precautions and is WBAT. pt requiring max A x 1-2 for mobility using FWW. pt unable to tolerate much activity with c/o feeling tired. pt will require SNF rehab to improve overall strength and function. will continue to assess. Goals Bed Mobility Goal Contact Guard Assistance Transfer Goal Contact Guard Assistance,Front Wheeled Walker Gait Goal Contact Guard Assistance,Front Wheel Walker Gait Distance 100 Other Goals improve bed mobility, transfers, ambulation using FWW ~ 150 ft SBA Days to Meet Goals 10 Frequency of Treatment Frequency Of Treatment Twice a Day Other frequency or as tolerated Treatment Plan Physical Therapy Treatment Plan Bed Mobility Training,Transfer Training,Gait Training, Therapeutic Exercise,Balance Retraining,Post Op Education, Discharge Planning,Hot or Cold Pack,Neuromuscular Re-ed, Coordination Retraining,Manual Therapy Precautions Posterior Hip Precautions No Hip Flexion > 90 degrees,No Hip Internal Rotation,No Hip Adduction Weight Bearing Status Weight Bearing Status Weight Bear as Tolerated Allowed Weight Bearing Amount (enter % RLE WBAT or #) (%) Recommendations To Nursing Amount of Assist Needed 2 Person Assist Discharge Recommendations PT Discharge Recommendations SNF Rehab Equipment Needed for Home Before FWW Discharge Transportation Needs at Discharge Private Vehicle,Wheelchair/ Cabulance
--- NOTE | 2024-04-06 10:17 | OT.IPNOTE ---
Pt getting blood and therefore hold and check on the pt later or tomorrow for OT.
[2024-04-06] MEDS: SODIUM CHLORIDE 0.9% 1,000 ML 125 ML IV ×2 (10:28→18:29)
--- NOTE | 2024-04-06 11:59 | PM.PN.1 ---
Subjective Subjective Interval history: She reports good pain control this morning, is starting to feel a bit stronger. Overnight was started on salt tabs and fluid was increased after Na dropped again to 116. Sodium now improved to 121 this morning. Exam Vital Signs (past 8 hours): - 04/06/24 04:00 04/06/24 08:00 04/06/24 08:00 Temperature 96.3 F L 97.8 F Pulse Rate 64 71 Respiratory Rate 16 17 Blood Pressure 128/53 L 123/69 Pulse Oximetry 95 100 Oxygen Delivery Method Room Air Oxygen Flow Rate 0 0 Oxygen Delivery Method Room Air Oxygen Flow Rate 0 Narrative Exam Narrative: GENERAL: This is a well-nourished, well-developed patient, in no apparent distress. EYES: Pupils equal round and reactive. Extraocular motions intact. ENT: Mucous membranes pink and moist. NECK: Supple, nontender, no meningeal signs. CARDIOVASCULAR: Regular rate and rhythm without murmurs, gallops, or rubs. RESPIRATORY: Clear to auscultation. GASTROINTESTINAL: Abdomen soft, non-tender, nondistended. EXTREMITIES: No clubbing, cyanosis, or edema. Right hip dressing in place, clean, dry and intact. NEUROLOGIC: Alert, oriented, speech fluent, full upper and lower motor strength, no focal deficits evident. DERMATOLOGIC: Right elbow abrasion with dressing in place. Objective Labs 04/06/24 03:25 04/06/24 08:31 Labs: Laboratory Results - last 24 hr 04/05/24 04/05/24 04/05/24 13:53 18:20 21:49 WBC RBC Hgb Hct MCV MCH MCHC RDW Plt Count Neut % (Auto) Lymph % (Auto) [facility] % (Auto) Eos % (Auto) Baso % (Auto) Neut # (Auto) Lymph # (Auto) [facility] # (Auto) Eos # (Auto) Baso # (Auto) Sodium 116 L* 118 L* 116 L* Potassium 4.2 4.4 4.5 Chloride 88 L 88 L 90 L Carbon Dioxide 27 25 26 BUN 17 17 17 Creatinine 0.80 0.86 0.72 Estimated GFR > 60 > 60 > 60 BUN/Creatinine Ratio 21.3 19.8 23.6 H Glucose 146 H 136 H 111 H Calcium 7.4 L 7.1 L 7.1 L Magnesium 04/06/24 04/06/24 03:25 08:31 WBC 9.7 RBC 3.35 L Hgb 10.3 L Hct 29.1 L MCV 87.0 MCH 30.6 MCHC 35.2 RDW 13.7 Plt Count 163 Neut % (Auto) 62.0 Lymph % (Auto) 18.3 L [facility] % (Auto) 16.2 H Eos % (Auto) 2.6 Baso % (Auto) 0.9 Neut # (Auto) 6000 Lymph # (Auto) 1800 [facility] # (Auto) 1600 H Eos # (Auto) 300 Baso # (Auto) 100 Sodium 119 L* 121 L Potassium 4.3 4.6 Chloride 93 L 94 L Carbon Dioxide 25 25 BUN 12 11 Creatinine 0.74 0.79 Estimated GFR > 60 > 60 BUN/Creatinine Ratio 16.2 13.9 Glucose 114 H 99 Calcium 7.5 L 7.5 L Magnesium 2.0 PFSH Medical History (Updated 04/04/24 @ 15:05 by Rj Villarreal MD) Hyponatremia History of DVT (deep vein thrombosis) Asthma, mild intermittent Coronary artery disease Allergic rhinitis GERD without esophagitis Mixed hyperlipidemia Essential hypertension Seizure disorder Chronic anticoagulation Paroxysmal atrial fibrillation Surgical History (Updated 04/05/24 @ 06:32 by Merly Lawson PA-C) History of hysterectomy History of resection of meningioma Social History household members: spouse Smoking Status: Never smoker Assessment & Plan Assessment & Plan narrative: (1) Closed pathologic intertrochanteric fracture of right femur: - s/p orthopedic interventions with hemiarthroplasty - okay to work with PT/OT today. - pain control for now with as needed oral medications. 2. Acute hyponatremia, not present on admission. - Na trend 134 on admit, 127 yesterday, 118 yesterday AM. urine sodium is <5. this is consistent with hypovolemia rather than an SIADH at this time. Attempted oral rehydration given unclear picture this morning with minimal symptoms and no urine sodium level at the time (and initial increase from 118 to 119), but sodium dropped to 116. Now improving with IV fluids and salt tablets. Continue to follow frequently, ordered q4 hours today. - Urine sodium <5 argues against SIADH, cerebral salt wasting (given hx of intracranial hemorrhage). - urine osm sent 04/05 but is a send out. - hold furosemide - continue electronic scale assembler and tester with tele. No acute events noted thus far. 3. paroxysmal afib on oral anticoagulation. - continue apixban, currently not on rate control medications. 4 History of resection of meningioma: Status: Acute 5 Seizure disorder: - continue home depakote 750 mg BID 6 Essential hypertension: will hold home furosemide for now given above hypovolemia and hyponatremia. BP is currently normal today. 7 Mixed hyperlipidemia: replaced home pitavastatin with formulary atorvastatin. 8 GERD without esophagitis: Status: Acute 9 Allergic rhinitis: 10 Asthma, mild intermittent: - albuterol neb as needed only. 11 History of hysterectomy: 12 History of DVT (deep vein thrombosis): Code: Full, surrogate is patient's spouse DVT: continues on apixaban Dispo: Possible SNF, anticipate discharge in 2-3 days, pending sodium improvement at this time. Discussed with patient's family, bedside staff to contribute to the above history, assessment and plan. Time-Based Coding :: [TOTAL MINUTES] spent with patient and on the chart (including review of chart, obtaining history, exam, reviewing outside data, placing orders, documenting exam and treatment plan, and counseling patient) on [DATE].
[2024-04-06 12:00] VITALS: BP 135/64; PULSE 77; RESP 18; O2SAT 100
[2024-04-06 12:04] LABS: BUN Creatinine Ratio 13.8 (6-22); Blood Urea Nitrogen 11 mg/dL (7-17); Calcium 7.3 mg/dL (8.4-10.2); Carbon Dioxide 24 mmol/L (22-32); Chloride 96 mmol/L (98-107); Estimated Glomerular Filt Rate > 60 mL/min (>60); Glucose 115 mg/dL (80-110); HEMOLYSIS < 15 (0-50); Sodium 123 mmol/L (137-145)
--- NOTE | 2024-04-06 13:15 | OT.IP.TRT ---
Current Diagnoses Mixed hyperlipidemia (04/02/24) Hypo-osmolality and hyponatremia (04/02/24) Epilepsy, unspecified, not intractable, without status epilepticus (04/02/24) Essential (primary) hypertension (04/02/24) Atherosclerotic heart disease of [place] coronary artery without angina pectoris (04/02/24) Paroxysmal atrial fibrillation (04/02/24) Other allergic rhinitis (04/02/24) Mild intermittent asthma, uncomplicated (04/02/24) Gastro-esophageal reflux disease without esophagitis (04/02/24) Displaced intertrochanteric fracture of right femur, initial encounter for closed fracture (04/02/24) 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 (04/02/24) Personal history of neoplasm of uncertain behavior (04/02/24) Personal history of other venous thrombosis and embolism (04/02/24) Acquired absence of both cervix and uterus (04/02/24) Presence of unspecified artificial hip joint (04/02/24) Other specified postprocedural states (04/02/24) Surgery Performed Operation Date: 04/04/24 08:00 Actual Procedures p Right Hip Hemiarthroplasty(Right) - Elijah Morrison MD Occupational Therapy Treatment Note M2 OT-IP Current Condition Start: 04/05/24 14:06 Freq: Status: Active Protocol: Document 04/05/24 14:06 CGR (Rec: 04/05/24 14:21 CGR [id number]) Occupational Therapy Current Condition Current Condition Evaluation Date 04/05/24 Treatment Diagnosis fall with R hip fx, now s/p R BART Diagnosis Onset Date 04/02/24 Post Operative Precautions Posterior Hip Precautions No Hip Flexion > 90 degrees,No Hip Internal Rotation,No Hip Adduction M3 OT- IP Subjective and Pain Start: 04/05/24 14:06 Freq: Status: Active Protocol: Document 04/06/24 13:15 CCC (Rec: 04/06/24 14:06 CCC [id number]) OT- Subjective Occupational Therapy Visit Type Type Treatment Note Visit Start Time 13:15 Visit Stop Time 13:45 Occupational Therapy Visit Comments Patient Comments Pt wanting to use the BSC. Patient/Caregiver Goals TO get better. OT Pain Assessment Pain When Pain Assessed During Mobility Pain Present Pain Present Pain Reported M4 OT- IP ADL's Start: 04/05/24 14:06 Freq: Status: Active Protocol: Document 04/06/24 13:15 [facility] (Rec: 04/06/24 14:06 [facility] [id number]) OT [id number] Comments OT Self-Feeding Comments Not at meal time. OT ADL-Grooming Comments OT Grooming Comments Not performed. OT ADL-Oral Care Comments Oral Care Comments not performed OT ADL-Dressing General Eval Lower Body Dressing Ability Total Assistance Areas Needing Assistance Underpants/Brief,Socks OT ADL-Toileting General Evaluation Toileting Ability Maximum Assistance Areas Needing Assistance Manage Clothing,Perform Perineal Hygiene OT ADL-Bathing Comments OT Bathing Comments Sponge bath more appropriate at this time. M5 OT- IP IADL's Start: 04/05/24 14:06 Freq: Status: Active Protocol: Document 04/05/24 14:06 CGR (Rec: 04/05/24 14:21 CGR [id number]) OT-Instrumental Activities of Daily Living Deficits IADL Deficits Identified Deficits Home Safety Awareness Awareness of Need for Assistance at Home Decreased Awareness Medication Management Medication Management Caregiver Administers Money Management Money Management Caregiver Provides Assistance Meal Preparation Meal Preparation Caregiver Provides Assist Rn Mds Rn Mds Caregiver Provides Assist M6 OT- IP Functional Cognition Start: 04/05/24 14:06 Freq: Status: Active Protocol: Document 04/06/24 13:15 [facility] (Rec: 04/06/24 14:06 [facility] [id number]) Cognitive Factors Limiting Selfcare Function Cognitive Ability Level of Alertness Confusional State Attention Span Ability Capable of Focused Attention, Unable to Sustain Attention Ability to Follow Commands Able to Follow One Step Commands with Increased Time, Able to Follow One Step Commands with Repetition Cognitive Comments Cognitive Assessment Comments Pt needing concrete simple cues to follow along with tactile cues. Pt at times slow to respond, pt still has low sodium level and history of brain sx which may be also affecting her thinking at this time. M7 OT- IP Mobility and Balance Start: 04/05/24 14:06 Freq: Status: Active Protocol: Document 04/06/24 13:15 [facility] (Rec: 04/06/24 14:06 [facility] [id number]) OT- Bed Mobility Assessment Supine to Sit Supine to Sit Assist Maximum Assistance,2 Person Assistance Sit to Supine Sit to Supine Assist Maximum Assistance,2 Person Assistance Scooting Scooting to Edge of Bed Moderate Assistance,1 Person Assistance,2 Person Assistance OT-Transfer Assessment Sit to and From Stand Sit to and from Stand Maximum Assistance,1 Person Assistance,2 Person Assistance Transfers Transfer Ability Maximum Assistance,1 Person Assistance,2 Person Assistance Technique Transfer Destination Bed,Chair Transfer Technique Stand Step Pivot Devices Transfer Assistive Devices Gait Belt,Front Wheeled Walker Comments Mobility Comments Assist to help furnace caretaker her RLE to the edge of the bed and assist to get her trunk upright as pt tends to lean backwards. MOD to help scoot forwards and needing another person to keep her from leaning backwards. MAX A 2 -3 to stand as pt leans to the left and vc to push weight on her RLE and arms so able to assist to move her feet. Able to transfer to the [facility] with assist to move the FWW, balance, and help slide her RLE forwards prior to stand and sitting down so able to follow her posterior hip precautions. Pt did better coming to stand when grabbing the FWW and the fww was held in place at this time. Pt needing 3 person assist to stand if pushing up from the bed. OT- Gait Assessment Comments Gait Ability Comments not performed OT- Balance Assessment Sitting Balance and Reactions Static Sitting Balance Ability Poor Dynamic Sitting Balance Ability Poor Standing Balance and Reactions Static Standing Balance Ability Poor Dynamic Standing Balance Ability Poor Comments Other Balance Tests/Deviations/Treatment Pt continues to lean to the : left and posteriorly. M8 OT- IP Objective Assessments Start: 04/05/24 14:06 Freq: Status: Active Protocol: Document 04/05/24 14:06 CGR (Rec: 04/05/24 14:21 CGR [id number]) OT Gross Range of Motion Upper Extremity Range of Motion Assessment Within Functional Limits OT Strength Upper Extremity Strength Assessment Within Functional Limits OT- Coordination Assessment Upper Extremity Finger to Nose Test Within Functional Limits Finger Tapping Test Within Functional Limits OT-Muscle Tone Assessment Muscle Tone WNL Yes OT Sensation Assessment Edema Edema Absent M9 OT- IP Assessment and Plan Start: 04/05/24 14:06 Freq: Status: Active Protocol: Document 04/06/24 13:15 CCC (Rec: 04/06/24 14:06 CCC [id number]) OT Summary Assessment and Plan Potential Rehabilitation Potential Good Analytic Complexity at Evaluation Moderate Summary OT Impairments Pain,Strength,Balance, Functional Cognition, Functional Mobility,Grooming, Dressing,Toileting,Bathing, Toilet Transfers,Shower Transfers,Activity Tolerance Progress Towards Goals Slow Progress due to Pain,Slow Progress due to Medical Issues Assessment Summary Pt able to participate in transfer to the [facility]. Pt will a bit groggy and needing MAX vc for safety and ability to follow her precautions at this time. Pt is needing MAX AX 2 for all mobility needs and at time a 3rd person for safety. Pt will benefit from skilled rehab. Goals Grooming Goal Independent Dressing Goal Independent Toileting Goal Independent Bathing Goal Independent Toilet Transfer Goal Independent Shower Transfer Goal Independent Days to Meet Goals 25 Frequency of Treatment Frequency Of Treatment Once a Day Treatment Plan OT Treatment Plan ADL Training,Functional Cognition Training,Functional Mobility,Patient/Family Education,Discharge Planning Other Treatment Recommendations and Next LB dressing with DME Treatment Focus Discharge Recommendations OT Discharge Recommendations SNF Rehab Transportation Needs at Discharge Wheelchair/Cabulance,Stretcher /Ambulance
--- NOTE | 2024-04-06 13:29 | CM.DPC ---
DCP Cont. Reviewed EMR and team rounds for status updates. Met with pt's son and to discuss the PT recommendation for pt to d/c to SNF rehab. Discussed their preferences. Faxed referral and clinicals to [facility] for review. Hoping for d/c tomorrow, will monitor for their determination.
--- NOTE | 2024-04-06 14:05 | PT.IPTN ---
Current Diagnoses Mixed hyperlipidemia (04/02/24) Hypo-osmolality and hyponatremia (04/02/24) Epilepsy, unspecified, not intractable, without status epilepticus (04/02/24) Essential (primary) hypertension (04/02/24) Atherosclerotic heart disease of [place] coronary artery without angina pectoris (04/02/24) Paroxysmal atrial fibrillation (04/02/24) Other allergic rhinitis (04/02/24) Mild intermittent asthma, uncomplicated (04/02/24) Gastro-esophageal reflux disease without esophagitis (04/02/24) Displaced intertrochanteric fracture of right femur, initial encounter for closed fracture (04/02/24) 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 (04/02/24) Personal history of neoplasm of uncertain behavior (04/02/24) Personal history of other venous thrombosis and embolism (04/02/24) Acquired absence of both cervix and uterus (04/02/24) Presence of unspecified artificial hip joint (04/02/24) Other specified postprocedural states (04/02/24) Surgery Performed Operation Date: 04/04/24 08:00 Actual Procedures p Right Hip Hemiarthroplasty(Right) - Elijah Morrison MD Physical Therapy Treatment Note M2 PT-IP Current Condition Start: 04/04/24 12:47 Freq: NEEDED Status: Active Protocol: Document 04/06/24 10:00 AB (Rec: 04/06/24 12:22 AB [id number]) Physical Therapy Current Condition Current Condition Evaluation Date 04/06/24 Treatment Diagnosis R hip fx s/p R hip hemiarthroplasty; difficulty in walking Onset Date 04/02/24 M3 PT-IP Subjective Start: 04/04/24 12:47 Freq: NEEDED Status: Active Protocol: Document 04/06/24 14:05 AB (Rec: 04/06/24 15:27 AB [id number]) Subjective Physical Therapy Visit Type Type Treatment Note Visit Start Time 14:05 Visit Stop Time 14:40 Number of OFFICE EQUIPMENT MECHANIC Visits 0 Physical Therapy Visit Comments Patient Comments initially refusing due to c/o fatigue but agreed to get out of the bed Therapy Pain Assessment Pain When Pain Assessed At Rest Pain Present Pain Present Pain Reported Location right hip Intensity 2 Scale Used Numeric (0 - 10) Description Dull Pain Management Techniques Distraction,Modification of Treatment,Re-positioning, Timing of Activity with Medications M4 PT-IP Mobility and Gait Start: 07/07/24 12:47 Freq: NEEDED Status: Active Protocol: Document 04/06/24 14:05 AB (Rec: 04/06/24 15:27 AB [id number]) PT-Bed Mobility Assessment Supine to Sit Supine to Sit Maximum Assistance,1 Person Assistance,2 Person Assistance ,Head of Bed Elevated,Bedrails PT-Transfer Assessment Sit to and From Stand Sit to and from Stand Maximum Assistance,2 Person Assistance,Use of Upper Extremities Equipment Transfer Assistive Device Gait Belt,Front Wheeled Walker Orthotic/Prosthetic Devices or Brace: No Transfers Transfer Destination Chair Transfer Technique Stand Step Pivot Transfer Ability Level of Assist Maximum Assistance,2 Person Assistance,Use of Upper Extremities Comments Mobility Comments pt supine in bed. spouse and son in room. pt initially refusing PT and stated that she is tired. informed pt to get up with nursing staff for dinner and pt agreed. stated that she can get up right now and agreed to do PT. pt with confusion/cognitive issues affecting safety awareness. reviewed hip precautions with pt and pt recalled 1/3 precautions. pt completed supine to sit max A and max cues. HOB elevated and pt used bed rail to assist. pt presents with increase posterior trunk leaning requiring max A for sitting balance on EOB. pt completed sit <>stand x 3 attempts with max cues for hip precautions but unable to stand. pt stated that she is just too tired to do it. positioned chair nex to pt. completed sit to stand max A x 2 and max cues and step transfer to chair using fWW max A x 2 and max cues. positioned pt on the chair. call light and table placed within reach. M5 PT-IP Objective Assessments Start: 04/04/24 12:47 Freq: NEEDED Status: Active Protocol: Document 04/06/24 10:00 AB (Rec: 04/06/24 12:22 AB [id number]) Orientation Orientation/Cognition Level of Alertness Alert Orientation Name,Place,Situation Memory Description Short Term Impaired Gross Range of Motion Lower Extremity ROM Assessment Within Functional Limits Strength Lower Extremity Strength Assessment Right Impaired Hip 3+/5 Knee 3+/5 Coordination Assessment Gross Coordination Gross Coordination WNL Muscle Tone Muscle Tone WNL Yes M6 PT-IP Treatment Start: 04/04/24 12:47 Freq: NEEDED Status: Active Protocol: Document 04/06/24 14:05 AB (Rec: 04/06/24 15:27 AB [id number]) Physical Therapy Treatment Education Education Provided Precautions,Safety M7 PT-IP Assessment and Plan Start: 04/04/24 12:47 Freq: NEEDED Status: Active Protocol: Document 04/06/24 14:05 (Rec: 04/06/24 15:27 AB [id number]) PT Summary Assessment and Plan Potential Rehabilitation Potential Fair Summary Impairments Pain,ROM,Strength,Balance, Coordination,Sensation,Tone, Cognition,Bed Mobility, Transfers,Gait,Activity Tolerance Assessment Summary pt requiring max A x 2 for mobility using FWW and continues to have decrease activity tolerance affecting mobility. pt has memory issues/cognitive issues and requires cues with all tasks. pt will require SNF rehab to improve overall strength and function. Goals Bed Mobility Goal Contact Guard Assistance Transfer Goal Contact Guard Assistance,Front Wheeled Walker Gait Goal Contact Guard Assistance,Front Wheel Walker Gait Distance 100 Other Goals improve bed mobility, transfers, ambulation using FWW ~ 150 ft SBA Days to Meet Goals 10 Frequency of Treatment Frequency Of Treatment Twice a Day Other frequency or as tolerated Treatment Plan Physical Therapy Treatment Plan Bed Mobility Training,Transfer Training,Gait Training, Therapeutic Exercise,Balance Retraining,Post Op Education, Discharge Planning,Hot or Cold Pack,Neuromuscular Re-ed, Coordination Retraining,Manual Therapy Precautions Posterior Hip Precautions No Hip Flexion > 90 degrees,No Hip Internal Rotation,No Hip Adduction Weight Bearing Status Weight Bearing Status Weight Bear as Tolerated Allowed Weight Bearing Amount (enter % RLE WBAT or #) (%) Recommendations To Nursing Amount of Assist Needed 2 Person Assist Discharge Recommendations PT Discharge Recommendations SNF Rehab Equipment Needed for Home Before FWW Discharge Transportation Needs at Discharge Wheelchair/Cabulance
[2024-04-06 17:58] LABS: Calcium 7.4 mg/dL (8.4-10.2); Carbon Dioxide 24 mmol/L (22-32); Chloride 98 mmol/L (98-107); Glucose 132 mg/dL (80-110); Potassium 4.9 mmol/L (3.4-5.1); Sodium 124 mmol/L (137-145)
[2024-04-06 18:00] VITALS: BP 117/41; PULSE 71; RESP 15; TEMP 36.6; O2SAT 98
[2024-04-06 18:03] LABS: BUN Creatinine Ratio 17.1 (6-22); Blood Urea Nitrogen 12 mg/dL (7-17); Estimated Glomerular Filt Rate > 60 mL/min (>60); HEMOLYSIS 35 (0-50)
--- NOTE | 2024-04-06 19:25 | PC.NURSE ---
Last sodium noted at 124 (was drawn late by lab), Dr. Elizondo aware. Last BMP of Q 4 series still needed, next due at 2129, lab and caustic cresylate shift superintendent RN updated.
[2024-04-06 20:00] VITALS: BP 113/74; PULSE 79; RESP 18; TEMP 35.8; O2SAT 96
[2024-04-06] MEDS: ATORVASTATIN 20 MG TABLET 10 MG PO (20:30)
[2024-04-06] MEDS: MONTELUKAST 10 MG TABLET PO (20:30)
[2024-04-06] MEDS: SENNOSIDES 8.6 MG TABLET 17.2 MG PO (20:31)
[2024-04-06] MEDS: MAGNESIUM OXIDE 400 MG TABLET PO (20:31)
[2024-04-06 22:08] LABS: BUN Creatinine Ratio 18.8 (6-22); Blood Urea Nitrogen 13 mg/dL (7-17); Calcium 7.3 mg/dL (8.4-10.2); Carbon Dioxide 21 mmol/L (22-32); Chloride 102 mmol/L (98-107); Estimated Glomerular Filt Rate > 60 mL/min (>60); Glucose 173 mg/dL (80-110); HEMOLYSIS 17 (0-50); Potassium 4.5 mmol/L (3.4-5.1); Sodium 124 mmol/L (137-145)
[2024-04-07] VITALS: BP 128/50; PULSE 82; RESP 16; TEMP 35.6; O2SAT 95
[2024-04-07] MEDS: SODIUM CHLORIDE 0.9% 1,000 ML 125 ML IV (02:20)
[2024-04-07 04:00] VITALS: BP 135/68; PULSE 87; RESP 16; TEMP 36; O2SAT 96
[2024-04-07] MEDS: ACETAMINOPHEN 325 MG TABLET 650 MG PO ×3 (04:37→19:07)
[2024-04-07] MEDS: OXYCODONE IR 5 MG TABLET PO ×3 (04:37→19:08)
[2024-04-07] MEDS: PANTOPRAZOLE DR 20 MG TABLET PO (05:01)
[2024-04-07 05:38] LABS: Magnesium 2.4 mg/dL (1.6-2.3)
[2024-04-07 05:41] LABS: BUN Creatinine Ratio 13.7 (6-22); Blood Urea Nitrogen 10 mg/dL (7-17); Calcium 7.9 mg/dL (8.4-10.2); Carbon Dioxide 26 mmol/L (22-32); Chloride 104 mmol/L (98-107); Estimated Glomerular Filt Rate > 60 mL/min (>60); Glucose 90 mg/dL (80-110); HEMOLYSIS < 15 (0-50); Potassium 4.7 mmol/L (3.4-5.1); Sodium 131 mmol/L (137-145)
[2024-04-07 05:45] LABS: Add Manual Diff / Slide Review NO; Basophils Absolute Auto 0 /uL (0-100); Basophils Percent Auto 0.5 % (0-2); Eosinophils Absolute Auto 300 /uL (0-450); Eosinophils Percent Auto 3.3 % (2-4); Hematocrit 32.5 % (36-46); Hemoglobin 11.3 g/dL (12.0-16.0); Lymphocytes Absolute Auto 1600 /uL (1100-4500); Lymphocytes Percent Auto 16.8 % (25-40); Mean Corpuscular HGB Conc 34.6 % (30-36); Mean Corpuscular Hemoglobin 30.7 PG (26-34); Mean Corpuscular Volume 88.5 fL (80-100); Monocytes Absolute Auto 1400 /uL (0-900); Monocytes Percent Auto 14.1 % (3-14); Neutrophils Absolute Auto 6400 /uL (1500-7000); Neutrophils Percent Auto 65.3 % (50-75); Platelet Count 234 X10^3/uL (150-400); Red Blood Cell Count 3.68 X10^6/uL (4.0-5.2); White Blood Cell Count 9.8 X10^3/uL (4.5-11.0)
[2024-04-07 08:00] VITALS: BP 104/45; PULSE 78; RESP 16; TEMP 36.6; O2SAT 99
[2024-04-07] MEDS: POTASSIUM CHLORIDE 10 MEQ TAB PO ×2 (09:07→20:56)
[2024-04-07] MEDS: DOCUSATE 100 MG CAPSULE PO (09:07)
[2024-04-07] MEDS: APIXABAN 5 MG TABLET PO ×2 (09:07→20:56)
[2024-04-07] MEDS: SODIUM CHLORIDE 1,000 MG TABLET 1000 MG PO (09:08)
[2024-04-07] MEDS: DIVALPROEX DR 250 MG TABLET 750 MG PO ×2 (09:08→20:56)
[2024-04-07] MEDS: FLUTICASONE INH ×2 (09:14→20:56)
[2024-04-07] MEDS: SALMETEROL INH ×2 (09:14→20:56)
[2024-04-07] MEDS: SODIUM CHLORIDE 0.9% FLUSH 10 ML IV ×2 (09:35→22:21)
--- NOTE | 2024-04-07 09:37 | PM.PNPO.1 ---
Subjective Subjective Interval history: Patient is found sitting in bed comfortably eating breakfast. She is accompanied by and son. Denies any fever chills nausea or vomiting. Pain is controlled with oral medication. Exam Vital Signs (past 8 hours): - 04/07/24 04:00 Temperature 96.8 F L Pulse Rate 87 Respiratory Rate 16 Blood Pressure 135/68 Pulse Oximetry 96 Oxygen Flow Rate 0 Oxygen Delivery Method Room Air Oxygen Flow Rate 0 Narrative Exam Narrative: 78-year-old female in no acute distress. Right hip dressing infused with blood. Neurovascular status is intact bilateral lower extremities. Able to dorsiflex and plantar flex against resistance at the ankle bilaterally. Dressing removed. Incision site appears to be well-maintained in appropriately closed ally. No signs of infection. Objective Labs 04/07/24 05:00 04/07/24 05:00 Labs: Laboratory Results - last 24 hr 04/06/24 04/06/24 04/06/24 11:38 17:33 21:45 WBC RBC Hgb Hct MCV MCH MCHC RDW Plt Count Neut % (Auto) Lymph % (Auto) [place] % (Auto) Eos % (Auto) Baso % (Auto) Neut # (Auto) Lymph # (Auto) [place] # (Auto) Eos # (Auto) Baso # (Auto) Sodium 123 L 124 L 124 L Potassium 5.0 4.9 4.5 Chloride 96 L 98 102 Carbon Dioxide 24 24 21 L BUN 11 12 13 Creatinine 0.80 0.70 0.69 Estimated GFR > 60 > 60 > 60 BUN/Creatinine Ratio 13.8 17.1 18.8 Glucose 115 H 132 H 173 H Calcium 7.3 L 7.4 L 7.3 L Magnesium 04/07/24 05:00 WBC 9.8 RBC 3.68 L Hgb 11.3 L Hct 32.5 L MCV 88.5 MCH 30.7 MCHC 34.6 RDW 14.0 Plt Count 234 Neut % (Auto) 65.3 Lymph % (Auto) 16.8 L [place] % (Auto) 14.1 H Eos % (Auto) 3.3 Baso % (Auto) 0.5 Neut # (Auto) 6400 Lymph # (Auto) 1600 [place] # (Auto) 1400 H Eos # (Auto) 300 Baso # (Auto) 0 Sodium 131 L Potassium 4.7 Chloride 104 Carbon Dioxide 26 BUN 10 Creatinine 0.73 Estimated GFR > 60 BUN/Creatinine Ratio 13.7 Glucose 90 Calcium 7.9 L Magnesium 2.4 H [facility] Medical History (Updated 04/04/24 @ 15:05 by Rj Villarreal MD) Hyponatremia History of DVT (deep vein thrombosis) Asthma, mild intermittent Coronary artery disease Allergic rhinitis GERD without esophagitis Mixed hyperlipidemia Essential hypertension Seizure disorder Chronic anticoagulation Paroxysmal atrial fibrillation Surgical History (Updated 04/05/24 @ 06:32 by Merly Lawson PA-C) History of hysterectomy History of resection of meningioma Social History household members: spouse Smoking Status: Never smoker Assessment & Plan Post-op Postoperative Procedures: Procedures Operation Date: 04/04/24 08:00 Actual Procedure Side Surgeon p Right Hip Hemiarthroplasty Right Elijah Morrison MD Postoperative day: 3 Postoperative status: doing well Postoperative status narrative: Status post right hip hemiarthroplasty April 04, 2024 Acute hyponatremia, not present on admission, paroxysmal AFib on oral anticoagulation, history of resection meningioma, seizure disorder, essential hypertension, hyperlipidemia, GERD followed by hospitalist Postoperative plan: routine post-op care Postoperative plan narrative: Aquacel change today. Answered number of questions with regards to postoperative care with family. They are satisfied with the answers. Weight-bearing as tolerated right lower extremity. Posterior hip precautions. Continue with abduction pillow while in bed. Eliquis and SCDs For DVT prophylaxis Follow up Orthopedics in 2 weeks for wound check and in [address] Morrsion for repeat imaging. If patient has returned home, wound check/staple removal can be done at primary care provider's office. Disposition, to be determined by medicine. Currently plan is to discharge to SNF once medically stable. Time Spent With Patient Time with patient: 25 - 35 minutes Quality VTE Deep Vein Thrombosis/Pulmonary Embolism Present on Admission: No
--- NOTE | 2024-04-07 10:10 | PT.IPTN ---
Current Diagnoses Mixed hyperlipidemia (04/02/24) Hypo-osmolality and hyponatremia (04/02/24) Epilepsy, unspecified, not intractable, without status epilepticus (04/02/24) Essential (primary) hypertension (04/02/24) Atherosclerotic heart disease of [place] coronary artery without angina pectoris (04/02/24) Paroxysmal atrial fibrillation (04/02/24) Other allergic rhinitis (04/02/24) Mild intermittent asthma, uncomplicated (04/02/24) Gastro-esophageal reflux disease without esophagitis (04/02/24) Displaced intertrochanteric fracture of right femur, initial encounter for closed fracture (04/02/24) 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 (04/02/24) Personal history of neoplasm of uncertain behavior (04/02/24) Personal history of other venous thrombosis and embolism (04/02/24) Acquired absence of both cervix and uterus (04/02/24) Presence of unspecified artificial hip joint (04/02/24) Other specified postprocedural states (04/02/24) Surgery Performed Operation Date: 04/04/24 08:00 Actual Procedures p Right Hip Hemiarthroplasty(Right) - Elijah Morrison MD Physical Therapy Treatment Note M2 PT-IP Current Condition Start: 04/04/24 12:47 Freq: NEEDED Status: Active Protocol: Document 04/06/24 10:00 AB (Rec: 04/06/24 12:22 AB [id number]) Physical Therapy Current Condition Current Condition Evaluation Date 04/06/24 Treatment Diagnosis R hip fx s/p R hip hemiarthroplasty; difficulty in walking Onset Date 04/02/24 M3 PT-IP Subjective Start: 04/04/24 12:47 Freq: NEEDED Status: Active Protocol: Document 04/07/24 10:10 AB (Rec: 04/07/24 11:56 AB [id number]) Subjective Physical Therapy Visit Type Type Treatment Note Visit Start Time 10:10 Visit Stop Time 10:45 Number of DICTAPHONE TYPIST Visits 0 Physical Therapy Visit Comments Patient Comments agreeable to do PT Therapy Pain Assessment Pain When Pain Assessed At Rest Pain Present Pain Present Pain Reported Location right hip Intensity 4 Scale Used Numeric (0 - 10) Pain Behaviors Guarding Pain Management Techniques Modification of Treatment,Re- positioning,Timing of Activity with Medications M4 PT-IP Mobility and Gait Start: 04/04/24 12:47 Freq: NEEDED Status: Active Protocol: Document 04/07/24 10:10 AB (Rec: 04/07/24 11:56 AB [id number]) PT-Bed Mobility Assessment Supine to Sit Supine to Sit Maximum Assistance,2 Person Assistance,Head of Bed Elevated,Bedrails Scooting Scooting to Edge of Bed Maximum Assistance PT-Transfer Assessment Sit to and From Stand Sit to and from Stand Maximum Assistance,2 Person Assistance,Use of Upper Extremities Equipment Transfer Assistive Device Gait Belt,Front Wheeled Walker Orthotic/Prosthetic Devices or Brace: No Transfers Transfer Destination Chair,Bedside Commode Transfer Technique ambulated Transfer Ability Level of Assist Maximum Assistance,1 Person Assistance,2 Person Assistance ,Use of Upper Extremities Comments Mobility Comments pt supine in bed and agreeable to do PT. pt requested to use the toilet. reviewed hip precautions with pt and pt only recalled 1/3. pt completed supine to sit max A x 2 and max cues. HOB elevated . pt was able to sit on EOB CGA with cues to correct posterior trunk lean and lateral trunk lean to the L. pt slow to respond to questions and instructions needing increase time to complete all tasks. assisted pt to scoot to EOB max A and max cues. pt completed sit to stand x 4 attempts to stand up requiring max A x 2 and max cues. pt with difficulties with motor planning and pushing UE and not pushing LE to stand. pt ambulated in room ~ 10 ft using FWW max A x 1-2 and max cues. requires max A for standing balance, weight shifting and to move RLE forward. positioned bedside commode next to pt and needing max A x 2 for controlled descent. pt completed sit to stand from bedside commode max A x 2 and max cues and was able to take steps to transfer to chair ~ 2 ft using FWW max A x 2 and max cues. positioned pt on the chair. call light and table placed within reach. Gait Assessment Gait Gait Assistance Required: Maximum Assistance Distance (Feet) 10 Able to Maintain Weight Bearing Status Yes During Gait Assistive Devices Assistive Device Gait Belt,Front Wheeled Walker Orthotic/Prosthetic Devices or Brace: No Gait Deviations General Gait Pattern Decreased Stride Length, Decreased Feet Clearance Factors Limiting Gait Function Factors Limiting Gait Function Decreased Activity Tolerance, Decreased Strength,Difficulty Following Directions,Pain,Poor Balance,Poor Safety Awareness M5 PT-IP Objective Assessments Start: 04/04/24 12:47 Freq: NEEDED Status: Active Protocol: Document 04/06/24 10:00 AB (Rec: 04/06/24 12:22 AB [id number]) Orientation Orientation/Cognition Level of Alertness Alert Orientation Name,Place,Situation Memory Description Short Term Impaired Gross Range of Motion Lower Extremity ROM Assessment Within Functional Limits Strength Lower Extremity Strength Assessment Right Impaired Hip 3+/5 Knee 3+/5 Coordination Assessment Gross Coordination Gross Coordination WNL Muscle Tone Muscle Tone WNL Yes M6 PT-IP Treatment Start: 04/04/24 12:47 Freq: NEEDED Status: Active Protocol: Document 04/07/24 10:10 AB (Rec: 04/07/24 11:56 AB [id number]) Physical Therapy Treatment Education Education Provided Precautions,Safety M7 PT-IP Assessment and Plan Start: 04/04/24 12:47 Freq: NEEDED Status: Active Protocol: Document 04/07/24 10:10 AB (Rec: 04/07/24 11:56 AB [id number]) PT Summary Assessment and Plan Potential Rehabilitation Potential Fair Summary Impairments Pain,ROM,Strength,Balance, Coordination,Sensation,Tone, Cognition,Bed Mobility, Transfers,Gait,Activity Tolerance Progress Towards Goals Slow Progress due to Activity Tolerance,Slow Progress - Other Assessment Summary pt continues to require max A x 2 with mobility using FWW and max cues required for precautions and safety. pt requiring increase time to complete all tasks. pt will benefit from SNF rehab. will continue to assess progress. Goals Bed Mobility Goal Contact Guard Assistance Transfer Goal Contact Guard Assistance,Front Wheeled Walker Gait Goal Contact Guard Assistance,Front Wheel Walker Gait Distance 100 Other Goals improve bed mobility, transfers, ambulation using FWW ~ 150 ft SBA Days to Meet Goals 10 Frequency of Treatment Frequency Of Treatment Twice a Day Other frequency or as tolerated Treatment Plan Physical Therapy Treatment Plan Bed Mobility Training,Transfer Training,Gait Training, Therapeutic Exercise,Balance Retraining,Post Op Education, Discharge Planning,Hot or Cold Pack,Neuromuscular Re-ed, Coordination Retraining,Manual Therapy Precautions Posterior Hip Precautions No Hip Flexion > 90 degrees,No Hip Internal Rotation,No Hip Adduction Weight Bearing Status Weight Bearing Status Weight Bear as Tolerated Allowed Weight Bearing Amount (enter % RLE WBAT or #) (%) Recommendations To Nursing Amount of Assist Needed 2 Person Assist Discharge Recommendations PT Discharge Recommendations SNF Rehab Equipment Needed for Home Before FWW Discharge Transportation Needs at Discharge Wheelchair/Cabulance
--- NOTE | 2024-04-07 10:20 | DIET.CONS2 ---
Dietary Inpatient Consultation Note Admission Date: 04/02/2024 15:11 78 y F admitted after fall w/ hip fx, post hip hemiarthroplasty. Nutrition screened for LOS. EMR reviewed. Pt nutritionally adequate with adequate po intakes, DFM checked for meal composition. No nutritional interventions needed at this time. Will continue to monitor po intakes. Diet: 04/04/24 Lunch General (Regular) Diet Diet Modifications: Food Texture: Level 7 - Regular Liquid Consistency: Level 0 - Thin Nutrition Percent Meal Consumed 75% 04/06/24 13:53 Percent Meal Consumed 100% 04/05/24 18:17 Electronically Signed by: Quin Celaya 04/07/24 10:20 Clinical Dietitian [address] [id number]
[2024-04-07 12:00] VITALS: BP 123/48; PULSE 74; RESP 16; TEMP 35.7; O2SAT 99
--- NOTE | 2024-04-07 13:50 | CM.DPC ---
DCP Cont. Reviewed EMR and team rounds for status updates. Per Dr. Elizondo, pt will need 1-more day before she is medically stable for d/c to [facility] in [place]. Called and updated [facility], will plan to call them in the am to confirm transport time.
--- NOTE | 2024-04-07 14:17 | OT.IP.TRT ---
Current Diagnoses Mixed hyperlipidemia (04/02/24) Hypo-osmolality and hyponatremia (04/02/24) Epilepsy, unspecified, not intractable, without status epilepticus (04/02/24) Essential (primary) hypertension (04/02/24) Atherosclerotic heart disease of [place] coronary artery without angina pectoris (04/02/24) Paroxysmal atrial fibrillation (04/02/24) Other allergic rhinitis (04/02/24) Mild intermittent asthma, uncomplicated (04/02/24) Gastro-esophageal reflux disease without esophagitis (04/02/24) Displaced intertrochanteric fracture of right femur, initial encounter for closed fracture (04/02/24) 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 (04/02/24) Personal history of neoplasm of uncertain behavior (04/02/24) Personal history of other venous thrombosis and embolism (04/02/24) Acquired absence of both cervix and uterus (04/02/24) Presence of unspecified artificial hip joint (04/02/24) Other specified postprocedural states (04/02/24) Surgery Performed Operation Date: 04/04/24 08:00 Actual Procedures p Right Hip Hemiarthroplasty(Right) - Elijah Morrison MD Occupational Therapy Treatment Note M2 OT-IP Current Condition Start: 04/05/24 14:06 Freq: Status: Active Protocol: Document 04/05/24 14:06 CGR (Rec: 04/05/24 14:21 CGR [id number]) Occupational Therapy Current Condition Current Condition Evaluation Date 04/05/24 Treatment Diagnosis fall with R hip fx, now s/p R BART Diagnosis Onset Date 04/02/24 Post Operative Precautions Posterior Hip Precautions No Hip Flexion > 90 degrees,No Hip Internal Rotation,No Hip Adduction M3 OT- IP Subjective and Pain Start: 04/05/24 14:06 Freq: Status: Active Protocol: Document 04/07/24 14:26 CCC (Rec: 04/07/24 14:33 CCC [id number]) OT- Subjective Occupational Therapy Visit Type Type Treatment Note Visit Start Time 14:07 Visit Stop Time 14:20 Occupational Therapy Visit Comments Patient Comments Attempted to do SLUMS with pt , but pt states feeling too groggy and wanting to hold off . Patient/Caregiver Goals TO get better. OT Pain Assessment Pain When Pain Assessed During Mobility Pain Present Pain Present Pain Reported M4 OT- IP ADL's Start: 04/05/24 14:06 Freq: Status: Active Protocol: Document 04/06/24 13:15 [facility] (Rec: 04/06/24 14:06 [facility] [id number]) OT [id number] Comments OT Self-Feeding Comments Not at meal time. OT ADL-Grooming Comments OT Grooming Comments Not performed. OT ADL-Oral Care Comments Oral Care Comments not performed OT ADL-Dressing General Eval Lower Body Dressing Ability Total Assistance Areas Needing Assistance Underpants/Brief,Socks OT ADL-Toileting General Evaluation Toileting Ability Maximum Assistance Areas Needing Assistance Manage Clothing,Perform Perineal Hygiene OT ADL-Bathing Comments OT Bathing Comments Sponge bath more appropriate at this time. M5 OT- IP IADL's Start: 04/05/24 14:06 Freq: Status: Active Protocol: Document 04/05/24 14:06 CGR (Rec: 04/05/24 14:21 CGR [id number]) OT-Instrumental Activities of Daily Living Deficits IADL Deficits Identified Deficits Home Safety Awareness Awareness of Need for Assistance at Home Decreased Awareness Medication Management Medication Management Caregiver Administers Money Management Money Management Caregiver Provides Assistance Meal Preparation Meal Preparation Caregiver Provides Assist Public Health Technician Public Health Technician Caregiver Provides Assist M6 OT- IP Functional Cognition Start: 04/05/24 14:06 Freq: Status: Active Protocol: Document 04/07/24 14:26 [facility] (Rec: 04/07/24 14:33 [facility] [id number]) Cognitive Factors Limiting Selfcare Function Cognitive Ability Level of Alertness Alert Attention Span Ability Capable of Focused Attention, Capable of Sustained Attention Ability to Follow Commands Able to Follow One Step Commands with Increased Time, Able to Follow One Step Commands with Repetition Memory Description Short Term Impaired Cognitive Comments Cognitive Assessment Comments Pt a bit groggy yet and having difficulty to complete the SLUMS and states would rather do it another time. Able to go over her hip precautions with her and able to recall 2/3 at this time. Able to demonstrate various situations to see if pt able to identify her hip precautions for various scenarios. Pt able to states with good accuracy of what not to do at this time and state why for reasoning. Other Balance Tests/Deviations/Treatment Pt continues to lean to the : left and posteriorly. M8 OT- IP Objective Assessments Start: 04/05/24 14:06 Freq: Status: Active Protocol: Document 04/05/24 14:06 CGR (Rec: 04/05/24 14:21 CGR [id number]) OT Gross Range of Motion Upper Extremity Range of Motion Assessment Within Functional Limits OT Strength Upper Extremity Strength Assessment Within Functional Limits OT- Coordination Assessment Upper Extremity Finger to Nose Test Within Functional Limits Finger Tapping Test Within Functional Limits OT-Muscle Tone Assessment Muscle Tone WNL Yes OT Sensation Assessment Edema Edema Absent M9 OT- IP Assessment and Plan Start: 04/05/24 14:06 Freq: Status: Active Protocol: Document 04/07/24 14:26 [facility] (Rec: 04/07/24 14:33 [facility] [id number]) OT Summary Assessment and Plan Potential Rehabilitation Potential Good Analytic Complexity at Evaluation Moderate Summary OT Impairments Pain,Strength,Balance, Functional Cognition, Functional Mobility,Grooming, Dressing,Toileting,Bathing, Toilet Transfers,Shower Transfers,Activity Tolerance Progress Towards Goals Slow Progress due to Pain,Slow Progress due to Medical Issues,Slow Progress due to Activity Tolerance Assessment Summary Pt still a bit groggy and not wanting to get up at this time . Able to go over her hip precautions again and pt able to identify what she is not able to do when therapist able to demonstrate to her various scenarios. Pt to go to skilled rehab when medically stable. Goals Grooming Goal Independent Dressing Goal Independent Toileting Goal Independent Bathing Goal Independent Toilet Transfer Goal Independent Shower Transfer Goal Independent Days to Meet Goals 25 Frequency of Treatment Frequency Of Treatment Once a Day Treatment Plan OT Treatment Plan ADL Training,Functional Cognition Training,Functional Mobility,Patient/Family Education,Discharge Planning Other Treatment Recommendations and Next LB dressing with DME Treatment Focus Discharge Recommendations OT Discharge Recommendations SNF Rehab Transportation Needs at Discharge Wheelchair/Cabulance
--- NOTE | 2024-04-07 14:28 | P.PN_ITS ---
Subjective Subjective Interval history: She reports good pain control this morning, is starting to feel a bit stronger. Sodium up to 131. Fluids stopped this morning. Continues to work with PT/OT. Exam Vital Signs (past 8 hours): - 04/07/24 08:00 Temperature 97.8 F Pulse Rate 78 Respiratory Rate 16 Blood Pressure 104/45 L Pulse Oximetry 99 Oxygen Flow Rate 0 Oxygen Delivery Method Room Air Oxygen Flow Rate 0 Narrative Exam Narrative: GENERAL: This is a well-nourished, well-developed patient, in no apparent distress. EYES: Pupils equal round and reactive. Extraocular motions intact. ENT: Mucous membranes pink and moist. NECK: Supple, nontender, no meningeal signs. CARDIOVASCULAR: Regular rate and rhythm without murmurs, gallops, or rubs. RESPIRATORY: Clear to auscultation. GASTROINTESTINAL: Abdomen soft, non-tender, nondistended. EXTREMITIES: No clubbing, cyanosis, or edema. Right hip dressing in place, clean, dry and intact. NEUROLOGIC: Alert, oriented, speech fluent, full upper and lower motor strength, no focal deficits evident. DERMATOLOGIC: Right elbow abrasion with dressing in place. Objective Labs 04/07/24 05:00 04/07/24 05:00 Labs: Laboratory Results - last 24 hr 04/06/24 04/06/24 04/07/24 17:33 21:45 05:00 WBC 9.8 RBC 3.68 L Hgb 11.3 L Hct 32.5 L MCV 88.5 MCH 30.7 MCHC 34.6 RDW 14.0 Plt Count 234 Neut % (Auto) 65.3 Lymph % (Auto) 16.8 L [place] % (Auto) 14.1 H Eos % (Auto) 3.3 Baso % (Auto) 0.5 Neut # (Auto) 6400 Lymph # (Auto) 1600 [place] # (Auto) 1400 H Eos # (Auto) 300 Baso # (Auto) 0 Sodium 124 L 124 L 131 L Potassium 4.9 4.5 4.7 Chloride 98 102 104 Carbon Dioxide 24 21 L 26 BUN 12 13 10 Creatinine 0.70 0.69 0.73 Estimated GFR > 60 > 60 > 60 BUN/Creatinine Ratio 17.1 18.8 13.7 Glucose 132 H 173 H 90 Calcium 7.4 L 7.3 L 7.9 L Magnesium 2.4 H [facility] Medical History (Updated 04/04/24 @ 15:05 by Rj Villarreal MD) Hyponatremia History of DVT (deep vein thrombosis) Asthma, mild intermittent Coronary artery disease Allergic rhinitis GERD without esophagitis Mixed hyperlipidemia Essential hypertension Seizure disorder Chronic anticoagulation Paroxysmal atrial fibrillation Surgical History (Updated 04/05/24 @ 06:32 by Merly Lawson PA-C) History of hysterectomy History of resection of meningioma Social History household members: spouse Smoking Status: Never smoker Assessment & Plan Assessment & Plan narrative: (1) Closed pathologic intertrochanteric fracture of right femur: - s/p orthopedic interventions with hemiarthroplasty - okay to work with PT/OT today. - pain control for now with as needed oral medications. 2. Acute hyponatremia, not present on admission. - Na trend 134 on admit, 127 yesterday, 118 yesterday AM. urine sodium is <5. this is consistent with hypovolemia rather than an SIADH at this time. Attempted oral rehydration given unclear picture with minimal symptoms and no urine sodium level at the time (and initial increase from 118 to 119), but sodium dropped to 116. Now improving with IV fluids and salt tablets. Sodium now up to 131. Ordered for q12 bmp today while stopping fluids to make sure she is continuing to improve. Will stop salt tabs if stable as well. - Urine sodium <5 argues against SIADH, cerebral salt wasting (given hx of intracranial hemorrhage). - urine osm sent 04/05 but is a send out. - continue to hold furosemide - continue monitoring specialist with tele. No acute events noted thus far. 3. paroxysmal afib on oral anticoagulation. - continue apixban, currently not on rate control medications. 4 History of resection of meningioma: Status: Acute 5 Seizure disorder: - continue home depakote 750 mg BID 6 Essential hypertension: will hold home furosemide for now given above hypovolemia and hyponatremia. BP is currently normal today. 7 Mixed hyperlipidemia: replaced home pitavastatin with formulary atorvastatin. 8 GERD without esophagitis: Status: Acute 9 Allergic rhinitis: 10 Asthma, mild intermittent: - albuterol neb as needed only. 11 History of hysterectomy: 12 History of DVT (deep vein thrombosis): Code: Full, surrogate is patient's spouse DVT: continues on apixaban Dispo: Possible SNF, anticipate discharge in 1-2 days, pending stable sodium at this time. Discussed with patient's family, bedside staff to contribute to the above history, assessment and plan. Time-Based Coding :: [TOTAL MINUTES] spent with patient and on the chart (including review of chart, obtaining history, exam, reviewing outside data, placing orders, documenting exam and treatment plan, and counseling patient) on [DATE]. Quality VTE Deep Vein Thrombosis/Pulmonary Embolism Present on Admission: No
[2024-04-07 14:39] LABS: Osmolality Urine 213 mOsmol/kg (.)
--- NOTE | 2024-04-07 15:35 | PT.IPTN ---
Current Diagnoses Mixed hyperlipidemia (04/02/24) Hypo-osmolality and hyponatremia (04/02/24) Epilepsy, unspecified, not intractable, without status epilepticus (04/02/24) Essential (primary) hypertension (04/02/24) Atherosclerotic heart disease of [place] coronary artery without angina pectoris (04/02/24) Paroxysmal atrial fibrillation (04/02/24) Other allergic rhinitis (04/02/24) Mild intermittent asthma, uncomplicated (04/02/24) Gastro-esophageal reflux disease without esophagitis (04/02/24) Displaced intertrochanteric fracture of right femur, initial encounter for closed fracture (04/02/24) 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 (04/02/24) Personal history of neoplasm of uncertain behavior (04/02/24) Personal history of other venous thrombosis and embolism (04/02/24) Acquired absence of both cervix and uterus (04/02/24) Presence of unspecified artificial hip joint (04/02/24) Other specified postprocedural states (04/02/24) Surgery Performed Operation Date: 04/04/24 08:00 Actual Procedures p Right Hip Hemiarthroplasty(Right) - Elijah Morrison MD Physical Therapy Treatment Note M2 PT-IP Current Condition Start: 04/04/24 12:47 Freq: NEEDED Status: Active Protocol: Document 04/06/24 10:00 AB (Rec: 04/06/24 12:22 AB [id number]) Physical Therapy Current Condition Current Condition Evaluation Date 04/06/24 Treatment Diagnosis R hip fx s/p R hip hemiarthroplasty; difficulty in walking Onset Date 04/02/24 M3 PT-IP Subjective Start: 04/04/24 12:47 Freq: NEEDED Status: Active Protocol: Document 04/07/24 15:35 AB (Rec: 04/07/24 16:45 AB [id number]) Subjective Physical Therapy Visit Type Type Treatment Note Visit Start Time 15:35 Visit Stop Time 16:20 Number of STUDENT ACCOUNTS MANAGER Visits 0 Physical Therapy Visit Comments Patient Comments agreeable to do PT Therapy Pain Assessment Pain When Pain Assessed At Rest Pain Present Pain Present Pain Reported Location right hip Intensity 2 Scale Used Numeric (0 - 10) Pain Management Techniques Distraction,Modification of Treatment,Re-positioning, Timing of Activity with Medications M4 PT-IP Mobility and Gait Start: 04/04/24 12:47 Freq: NEEDED Status: Active Protocol: Document 04/07/24 15:35 AB (Rec: 04/07/24 16:45 AB [id number]) PT-Bed Mobility Assessment Supine to Sit Supine to Sit Moderate Assistance,Maximum Assistance,Head of Bed Elevated,Bedrails PT-Transfer Assessment Sit to and From Stand Sit to and from Stand Maximum Assistance,2 Person Assistance,Use of Upper Extremities Equipment Transfer Assistive Device Gait Belt,Front Wheeled Walker Orthotic/Prosthetic Devices or Brace: No Transfers Transfer Destination Chair Transfer Technique ambulated Transfer Ability Level of Assist Maximum Assistance,1 Person Assistance,Use of Upper Extremities Comments Mobility Comments pt supine in bed and agreeable to do PT. reviewed hip precautions and pt recalled 2/ 3. pt still continues to have slow responses to questions and instructions and needed max cues with all tasks. pt completed supine to sit mod to max A and max cues. HOB elevated and use of bed rail to assist. pt was able to sit on EOB min A and cues for posture. pt completed sit to stand from EOB max A x 2 and max cues for techniques. pt ambulated ~ 15 ft using FWW max A and cues. pt needed one step instructions and increase time to complete all tasks. pt needing max A for weight shifting and for moving RLE forward. pt required max A x 2 for controlled descent to the chair. pt agreed to sit up on the chair. positioned pt on the chair. call light and table placed within reach. Gait Assessment Gait Gait Assistance Required: Maximum Assistance,1 Person Assist Distance (Feet) 15 Able to Maintain Weight Bearing Status Yes During Gait Assistive Devices Assistive Device Gait Belt,Front Wheeled Walker Orthotic/Prosthetic Devices or Brace: No Gait Deviations General Gait Pattern Antalgic,Decreased Stride Length,Decreased Feet Clearance,Step-to Gait Factors Limiting Gait Function Factors Limiting Gait Function Decreased Activity Tolerance, Decreased Strength,Difficulty Following Directions,Limited Range of Motion,Pain,Poor Balance,Poor Safety Awareness M5 PT-IP Objective Assessments Start: 04/04/24 12:47 Freq: NEEDED Status: Active Protocol: Document 04/06/24 10:00 AB (Rec: 04/06/24 12:22 AB [id number]) Orientation Orientation/Cognition Level of Alertness Alert Orientation Name,Place,Situation Memory Description Short Term Impaired Gross Range of Motion Lower Extremity ROM Assessment Within Functional Limits Strength Lower Extremity Strength Assessment Right Impaired Hip 3+/5 Knee 3+/5 Coordination Assessment Gross Coordination Gross Coordination WNL Muscle Tone Muscle Tone WNL Yes M6 PT-IP Treatment Start: 04/04/24 12:47 Freq: NEEDED Status: Active Protocol: Document 04/07/24 15:35 AB (Rec: 04/07/24 16:45 AB [id number]) Physical Therapy Treatment Education Education Provided Precautions,Safety M7 PT-IP Assessment and Plan Start: 04/04/24 12:47 Freq: NEEDED Status: Active Protocol: Document 04/07/24 15:35 AB (Rec: 04/07/24 16:45 AB [id number]) PT Summary Assessment and Plan Potential Rehabilitation Potential Fair Summary Impairments Pain,ROM,Strength,Balance, Coordination,Sensation,Tone, Cognition,Bed Mobility, Transfers,Gait,Activity Tolerance Progress Towards Goals Slow Progress due to Activity Tolerance,Slow Progress - Other Assessment Summary pt requiring max A x 2 for sit <> stand and was able to ambulate ~ 15 ft using FWW max A and max cues. pt will benefit from SNF rehab to improve overall strength and mobility independence. Goals Bed Mobility Goal Contact Guard Assistance Transfer Goal Contact Guard Assistance,Front Wheeled Walker Gait Goal Contact Guard Assistance,Front Wheel Walker Gait Distance 100 Other Goals improve bed mobility, transfers, ambulation using FWW ~ 150 ft SBA Days to Meet Goals 10 Frequency of Treatment Frequency Of Treatment Twice a Day Other frequency or as tolerated Treatment Plan Physical Therapy Treatment Plan Bed Mobility Training,Transfer Training,Gait Training, Therapeutic Exercise,Balance Retraining,Post Op Education, Discharge Planning,Hot or Cold Pack,Neuromuscular Re-ed, Coordination Retraining,Manual Therapy Precautions Posterior Hip Precautions No Hip Flexion > 90 degrees,No Hip Internal Rotation,No Hip Adduction Weight Bearing Status Weight Bearing Status Weight Bear as Tolerated Allowed Weight Bearing Amount (enter % RLE WBAT or #) (%) Recommendations To Nursing Amount of Assist Needed 2 Person Assist Discharge Recommendations PT Discharge Recommendations SNF Rehab Transportation Needs at Discharge Wheelchair/Cabulance
[2024-04-07 16:00] VITALS: BP 136/58; PULSE 78; RESP 18; TEMP 36; O2SAT 100
[2024-04-07 18:10] LABS: BUN Creatinine Ratio 15.1 (6-22); Blood Urea Nitrogen 14 mg/dL (7-17); Calcium 8.3 mg/dL (8.4-10.2); Carbon Dioxide 27 mmol/L (22-32); Chloride 104 mmol/L (98-107); Estimated Glomerular Filt Rate > 60 mL/min (>60); Glucose 95 mg/dL (80-110); HEMOLYSIS < 15 (0-50); Potassium 4.8 mmol/L (3.4-5.1); Sodium 134 mmol/L (137-145)
[2024-04-07 20:00] VITALS: BP 123/57; PULSE 81; RESP 18; TEMP 37.2; O2SAT 96
[2024-04-07] MEDS: MAGNESIUM OXIDE 400 MG TABLET PO (20:55)
[2024-04-07] MEDS: ATORVASTATIN 20 MG TABLET 10 MG PO (20:55)
[2024-04-07] MEDS: SENNOSIDES 8.6 MG TABLET 17.2 MG PO (20:56)
[2024-04-07] MEDS: MONTELUKAST 10 MG TABLET PO (20:56)
[2024-04-07] MEDS: MORPHINE 4 MG/ML INJ 3 MG IV (22:21)
[2024-04-08] VITALS: BP 119/47; PULSE 77; RESP 17; TEMP 36.6; O2SAT 92
[2024-04-08 04:00] VITALS: BP 137/67; PULSE 78; RESP 18; TEMP 36.3; O2SAT 99
[2024-04-08] MEDS: ACETAMINOPHEN 325 MG TABLET 650 MG PO ×3 (04:10→20:17)
[2024-04-08] MEDS: OXYCODONE IR 5 MG TABLET PO ×4 (04:11→20:18)
[2024-04-08 05:32] LABS: Add Manual Diff / Slide Review NO; Basophils Absolute Auto 100 /uL (0-100); Basophils Percent Auto 0.8 % (0-2); Eosinophils Absolute Auto 600 /uL (0-450); Eosinophils Percent Auto 5.9 % (2-4); Hematocrit 29.5 % (36-46); Hemoglobin 10.2 g/dL (12.0-16.0); Lymphocytes Absolute Auto 2300 /uL (1100-4500); Lymphocytes Percent Auto 22.7 % (25-40); Mean Corpuscular HGB Conc 34.5 % (30-36); Mean Corpuscular Hemoglobin 30.7 PG (26-34); Mean Corpuscular Volume 88.9 fL (80-100); Monocytes Absolute Auto 1200 /uL (0-900); Monocytes Percent Auto 12.4 % (3-14); Neutrophils Absolute Auto 5800 /uL (1500-7000); Neutrophils Percent Auto 58.2 % (50-75); Platelet Count 283 X10^3/uL (150-400); Red Blood Cell Count 3.32 X10^6/uL (4.0-5.2)
[2024-04-08 05:34] LABS: BUN Creatinine Ratio 19.7 (6-22); Blood Urea Nitrogen 15 mg/dL (7-17); Calcium 8.2 mg/dL (8.4-10.2); Carbon Dioxide 28 mmol/L (22-32); Chloride 102 mmol/L (98-107); Estimated Glomerular Filt Rate > 60 mL/min (>60); Glucose 85 mg/dL (80-110); HEMOLYSIS < 15 (0-50); Magnesium 2.3 mg/dL (1.6-2.3); Potassium 4.5 mmol/L (3.4-5.1); Sodium 131 mmol/L (137-145)
[2024-04-08] MEDS: PANTOPRAZOLE DR 20 MG TABLET PO (07:34)
[2024-04-08 08:00] VITALS: BP 112/52; PULSE 70; RESP 16; TEMP 36.1; O2SAT 95
[2024-04-08] MEDS: polyethylene glycoL 3350 17 GM POWD.PACK PO (08:49)
[2024-04-08] MEDS: DOCUSATE 100 MG CAPSULE PO (08:49)
[2024-04-08] MEDS: APIXABAN 5 MG TABLET PO ×2 (08:49→20:15)
[2024-04-08] MEDS: DIVALPROEX DR 250 MG TABLET 750 MG PO ×2 (08:49→20:17)
[2024-04-08 09:20] LABS: Sodium Urine Random 71 mmol/L (30-90)
[2024-04-08] MEDS: SALMETEROL INH ×2 (10:19→21:30)
[2024-04-08] MEDS: SODIUM CHLORIDE 0.9% FLUSH 10 ML IV ×2 (10:19→21:57)
[2024-04-08] MEDS: FUROSEMIDE 40 MG TABLET PO (10:19)
[2024-04-08] MEDS: FLUTICASONE INH ×2 (10:19→21:30)
--- NOTE | 2024-04-08 11:07 | PC.NURSE ---
In am, touched base with provider about removing [place] - provider okayed removal. RN brought up patient on potassium with AM level of 4.5 and furosemide had previously been held. Provider ordered furosemide restarted after urine sodium resulted but told RN to hold potassium today. RN educated patient and family member on fluid restriction, deep breathing/coughing and medications.
--- NOTE | 2024-04-08 11:25 | PT.IPTN ---
Current Diagnoses Mixed hyperlipidemia (04/02/24) Hypo-osmolality and hyponatremia (04/02/24) Epilepsy, unspecified, not intractable, without status epilepticus (04/02/24) Essential (primary) hypertension (04/02/24) Atherosclerotic heart disease of [place] coronary artery without angina pectoris (04/02/24) Paroxysmal atrial fibrillation (04/02/24) Other allergic rhinitis (04/02/24) Mild intermittent asthma, uncomplicated (04/02/24) Gastro-esophageal reflux disease without esophagitis (04/02/24) Displaced intertrochanteric fracture of right femur, initial encounter for closed fracture (04/02/24) 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 (04/02/24) Personal history of neoplasm of uncertain behavior (04/02/24) Personal history of other venous thrombosis and embolism (04/02/24) Acquired absence of both cervix and uterus (04/02/24) Presence of unspecified artificial hip joint (04/02/24) Other specified postprocedural states (04/02/24) Surgery Performed Operation Date: 04/04/24 08:00 Actual Procedures p Right Hip Hemiarthroplasty(Right) - Elijah Morrison MD Physical Therapy Treatment Note M2 PT-IP Current Condition Start: 04/04/24 12:47 Freq: NEEDED Status: Active Protocol: Document 04/06/24 10:00 AB (Rec: 04/06/24 12:22 AB [id number]) Physical Therapy Current Condition Current Condition Evaluation Date 04/06/24 Treatment Diagnosis R hip fx s/p R hip hemiarthroplasty; difficulty in walking Onset Date 04/02/24 M3 PT-IP Subjective Start: 04/04/24 12:47 Freq: NEEDED Status: Active Protocol: Document 04/08/24 12:06 TS (Rec: 04/08/24 12:22 TS [id number]) Subjective Physical Therapy Visit Type Type Treatment Note Visit Start Time 11:25 Visit Stop Time 12:05 Number of TRANSITION OF CARE SPECIALIST Visits 1 Physical Therapy Visit Comments Patient Comments Pt found resting in bed, reports pain is 1/10, is agreeable to PT. Therapy Pain Assessment Pain When Pain Assessed At Rest Pain Present Pain Present Pain Reported Location right hip Intensity 1 Scale Used Numeric (0 - 10) Pain Management Techniques Distraction,Modification of Treatment,Re-positioning, Timing of Activity with Medications M4 PT-IP Mobility and Gait Start: 04/04/24 12:47 Freq: NEEDED Status: Active Protocol: Document 04/08/24 12:06 TS (Rec: 04/08/24 12:22 TS [id number]) PT-Bed Mobility Assessment Supine to Sit Supine to Sit Moderate Assistance,Maximum Assistance,Head of Bed Elevated,Bedrails Sit to Supine Sit to Supine Maximum Assistance,2 Person Assistance,Head of Bed Elevated Scooting Scooting to Edge of Bed Contact Guard Assistance PT-Transfer Assessment Sit to and From Stand Sit to and from Stand Maximum Assistance,1 Person Assistance,Use of Upper Extremities Equipment Transfer Assistive Device Gait Belt,Front Wheeled Walker Orthotic/Prosthetic Devices or Brace: No Comments Mobility Comments Pt recalled 3/3 hip precautions prior to mobility. Supine to sit MaxA x1 with with BUE support. She scooted to EOB CGA with use of bed rails and cues for sequencing. STS from bed MaxA x1 with FWW , pt dmeonstrates good carryover of STS sequencing. She ambulated to other side of bed ~12' and back to the other side another 12'. She fatigued after ~15' of gait, required multiple standing rest breaks. Sit to supine into bed MaxA x2 with assist from spouse. Pt was left in bed, fatigued, all needs met. Gait Assessment Gait Gait Assistance Required: Contact Guard Assist,1 Person Assist Distance (Feet) 24 Able to Maintain Weight Bearing Status Yes During Gait Assistive Devices Assistive Device Gait Belt,Front Wheeled Walker Orthotic/Prosthetic Devices or Brace: No Gait Deviations General Gait Pattern Antalgic,Decreased Stride Length,Decreased Feet Clearance,Step-to Gait Factors Limiting Gait Function Factors Limiting Gait Function Decreased Activity Tolerance, Decreased Strength,Difficulty Following Directions,Limited Range of Motion,Pain,Poor Balance,Poor Safety Awareness PT-Balance Assessment Sitting Balance and Reactions Static Sitting Balance Ability Good Dynamic Sitting Balance Ability Fair Standing Balance and Reactions Static Standing Balance Ability Fair Dynamic Standing Balance Ability Poor Device Used FWW M5 PT-IP Objective Assessments Start: 04/04/24 12:47 Freq: NEEDED Status: Active Protocol: Document 04/06/24 10:00 AB (Rec: 04/06/24 12:22 AB [id number]) Orientation Orientation/Cognition Level of Alertness Alert Orientation Name,Place,Situation Memory Description Short Term Impaired Gross Range of Motion Lower Extremity ROM Assessment Within Functional Limits Strength Lower Extremity Strength Assessment Right Impaired Hip 3+/5 Knee 3+/5 Coordination Assessment Gross Coordination Gross Coordination WNL Muscle Tone Muscle Tone WNL Yes M6 PT-IP Treatment Start: 04/04/24 12:47 Freq: NEEDED Status: Active Protocol: Document 04/08/24 12:06 TS (Rec: 04/08/24 12:22 TS [id number]) Physical Therapy Treatment Education Education Provided Precautions,Safety M7 PT-IP Assessment and Plan Start: 04/04/24 12:47 Freq: NEEDED Status: Active Protocol: Document 04/08/24 12:06 TS (Rec: 04/08/24 12:22 TS [id number]) PT Summary Assessment and Plan Potential Rehabilitation Potential Fair Summary Impairments Pain,ROM,Strength,Balance, Coordination,Sensation,Tone, Cognition,Bed Mobility, Transfers,Gait,Activity Tolerance Progress Towards Goals Slow Progress due to Activity Tolerance,Slow Progress - Other Assessment Summary Kenyetta is making some progress with her mobility but remains limited by poor activity tolerance. She continues to require MaxA for bed mobility due to weakness. She progressed her gait to ~24 'CGA with FWW. She fatigues quickly with gait and is heavy handed on FWW. She demonstrates good awareness of her hip precautions and recalled 3/3. PT is continues to recommend SNF rehab at this time. Goals Bed Mobility Goal Contact Guard Assistance Transfer Goal Contact Guard Assistance,Front Wheeled Walker Gait Goal Contact Guard Assistance,Front Wheel Walker Gait Distance 100 Other Goals improve bed mobility, transfers, ambulation using FWW ~ 150 ft SBA Days to Meet Goals 10 Frequency of Treatment Frequency Of Treatment Twice a Day Other frequency or as tolerated Treatment Plan Physical Therapy Treatment Plan Bed Mobility Training,Transfer Training,Gait Training, Therapeutic Exercise,Balance Retraining,Post Op Education, Discharge Planning,Hot or Cold Pack,Neuromuscular Re-ed, Coordination Retraining,Manual Therapy Precautions Posterior Hip Precautions No Hip Flexion > 90 degrees,No Hip Internal Rotation,No Hip Adduction Weight Bearing Status Weight Bearing Status Weight Bear as Tolerated Allowed Weight Bearing Amount (enter % RLE WBAT or #) (%) Recommendations To Nursing Amount of Assist Needed 2 Person Assist Discharge Recommendations PT Discharge Recommendations SNF Rehab Transportation Needs at Discharge Wheelchair/Cabulance
[2024-04-08 12:00] VITALS: BP 119/58; PULSE 67; RESP 17; TEMP 36.1; O2SAT 99
--- NOTE | 2024-04-08 13:44 | PM.PN.1 ---
Subjective Subjective Interval history: She reports good pain control this morning, is starting to feel a bit stronger. Sodium dipped from 134 to 131. Repeated urine studies and now urine Na is 71. Restarted furosemide home medication, put on fluid restriction. Exam Vital Signs (past 8 hours): - 04/08/24 07:00 04/08/24 08:00 04/08/24 12:00 Temperature 97.0 F L 97.0 F L Pulse Rate 70 67 Respiratory Rate 16 17 Blood Pressure 112/52 L 119/58 L Pulse Oximetry 95 99 Oxygen Delivery Method Room Air Oxygen Flow Rate 0 0 Oxygen Delivery Method Room Air Oxygen Flow Rate 0 Narrative Exam Narrative: GENERAL: This is a well-nourished, well-developed patient, in no apparent distress. EYES: Pupils equal round and reactive. Extraocular motions intact. ENT: Mucous membranes pink and moist. NECK: Supple, nontender, no meningeal signs. CARDIOVASCULAR: Regular rate and rhythm without murmurs, gallops, or rubs. RESPIRATORY: Clear to auscultation. GASTROINTESTINAL: Abdomen soft, non-tender, nondistended. EXTREMITIES: No clubbing, cyanosis, or edema. Right hip dressing in place, clean, dry and intact. NEUROLOGIC: Alert, oriented, speech fluent, full upper and lower motor strength, no focal deficits evident. DERMATOLOGIC: Right elbow abrasion with dressing in place. Objective Labs 04/08/24 04:35 04/08/24 04:35 Labs: Laboratory Results - last 24 hr 04/05/24 04/07/24 04/08/24 19:30 17:50 04:35 WBC 10.0 RBC 3.32 L Hgb 10.2 L Hct 29.5 L MCV 88.9 MCH 30.7 MCHC 34.5 RDW 14.0 Plt Count 283 Neut % (Auto) 58.2 Lymph % (Auto) 22.7 L [place] % (Auto) 12.4 Eos % (Auto) 5.9 H Baso % (Auto) 0.8 Neut # (Auto) 5800 Lymph # (Auto) 2300 [place] # (Auto) 1200 H Eos # (Auto) 600 H Baso # (Auto) 100 Sodium 134 L 131 L Potassium 4.8 4.5 Chloride 104 102 Carbon Dioxide 27 28 BUN 14 15 Creatinine 0.93 0.76 Estimated GFR > 60 > 60 BUN/Creatinine Ratio 15.1 19.7 Glucose 95 85 Calcium 8.3 L 8.2 L Magnesium 2.3 Urine Osmolality 213 Ur Random Sodium 04/08/24 08:30 WBC RBC Hgb Hct MCV MCH MCHC RDW Plt Count Neut % (Auto) Lymph % (Auto) [place] % (Auto) Eos % (Auto) Baso % (Auto) Neut # (Auto) Lymph # (Auto) [place] # (Auto) Eos # (Auto) Baso # (Auto) Sodium Potassium Chloride Carbon Dioxide BUN Creatinine Estimated GFR BUN/Creatinine Ratio Glucose Calcium Magnesium Urine Osmolality Ur Random Sodium 71 [facility] Medical History (Updated 04/04/24 @ 15:05 by Rj Villarreal MD) Hyponatremia History of DVT (deep vein thrombosis) Asthma, mild intermittent Coronary artery disease Allergic rhinitis GERD without esophagitis Mixed hyperlipidemia Essential hypertension Seizure disorder Chronic anticoagulation Paroxysmal atrial fibrillation Surgical History (Updated 04/05/24 @ 06:32 by Merly Lawson PA-C) History of hysterectomy History of resection of meningioma Social History household members: spouse Smoking Status: Never smoker Assessment & Plan Assessment & Plan narrative: (1) Closed pathologic intertrochanteric fracture of right femur: - s/p orthopedic interventions with hemiarthroplasty - okay to work with PT/OT today. - pain control for now with as needed oral medications. 2. Acute hyponatremia, not present on admission. - Na trend 134 on admit, 127 day after and then 118 yafter surgery. urine sodium was <5. this was consistent with hypovolemia rather than an SIADH at the time. Attempted oral rehydration given unclear picture with minimal symptoms and no urine sodium level at the time (and initial increase from 118 to 119), but sodium dropped to 116. Now improved with IV fluids and salt tablets. Sodium now up to 134 but this morning fell to 131 again. - repeated urine Na which was 71, added back salt tablets and resumed home furosemide. Place on 1.2 L fluid restriction as well for now. Continue to make sure sodium stays stable prior to SNF. - monitor sodium BID. 3. paroxysmal afib on oral anticoagulation. - continue apixban, currently not on rate control medications. 4 History of resection of meningioma: Status: Acute 5 Seizure disorder: - continue home depakote 750 mg BID 6 Essential hypertension: will hold home furosemide for now given above hypovolemia and hyponatremia. BP is currently normal today. 7 Mixed hyperlipidemia: replaced home pitavastatin with formulary atorvastatin. 8 GERD without esophagitis: Status: Acute 9 Allergic rhinitis: 10 Asthma, mild intermittent: - albuterol neb as needed only. 11 History of hysterectomy: 12 History of DVT (deep vein thrombosis): Code: Full, surrogate is patient's spouse DVT: continues on apixaban Dispo: Possible SNF, anticipate discharge in 1-2 days, pending stable sodium at this time. Discussed with patient's family, bedside staff to contribute to the above history, assessment and plan. Time-Based Coding :: [TOTAL MINUTES] spent with patient and on the chart (including review of chart, obtaining history, exam, reviewing outside data, placing orders, documenting exam and treatment plan, and counseling patient) on [DATE]. Quality VTE Deep Vein Thrombosis/Pulmonary Embolism Present on Admission: No
--- NOTE | 2024-04-08 14:51 | PT.IPTN ---
Current Diagnoses Mixed hyperlipidemia (04/02/24) Hypo-osmolality and hyponatremia (04/02/24) Epilepsy, unspecified, not intractable, without status epilepticus (04/02/24) Essential (primary) hypertension (04/02/24) Atherosclerotic heart disease of [place] coronary artery without angina pectoris (04/02/24) Paroxysmal atrial fibrillation (04/02/24) Other allergic rhinitis (04/02/24) Mild intermittent asthma, uncomplicated (04/02/24) Gastro-esophageal reflux disease without esophagitis (04/02/24) Displaced intertrochanteric fracture of right femur, initial encounter for closed fracture (04/02/24) 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 (04/02/24) Personal history of neoplasm of uncertain behavior (04/02/24) Personal history of other venous thrombosis and embolism (04/02/24) Acquired absence of both cervix and uterus (04/02/24) Presence of unspecified artificial hip joint (04/02/24) Other specified postprocedural states (04/02/24) Surgery Performed Operation Date: 04/04/24 08:00 Actual Procedures p Right Hip Hemiarthroplasty(Right) - Elijah Morrison MD Physical Therapy Treatment Note M2 PT-IP Current Condition Start: 04/04/24 12:47 Freq: NEEDED Status: Active Protocol: Document 04/06/24 10:00 AB (Rec: 04/06/24 12:22 AB [id number]) Physical Therapy Current Condition Current Condition Evaluation Date 04/06/24 Treatment Diagnosis R hip fx s/p R hip hemiarthroplasty; difficulty in walking Onset Date 04/02/24 M3 PT-IP Subjective Start: 04/04/24 12:47 Freq: NEEDED Status: Active Protocol: Document 04/08/24 15:15 TS (Rec: 04/08/24 15:27 TS [id number]) Subjective Physical Therapy Visit Type Type Treatment Note Visit Start Time 14:51 Visit Stop Time 15:14 Number of ARCHITECTURAL REPRESENTATIVE Visits 2 Physical Therapy Visit Comments Patient Comments Pt found on commode with OT, reports being fatigued, she is agreeable to PT. Therapy Pain Assessment Pain When Pain Assessed At Rest Pain Present Pain Present Pain Reported M4 PT-IP Mobility and Gait Start: 04/04/24 12:47 Freq: NEEDED Status: Active Protocol: Document 04/08/24 15:15 TS (Rec: 04/08/24 15:27 TS [id number]) PT-Bed Mobility Assessment Sit to Supine Sit to Supine Maximum Assistance,2 Person Assistance,Head of Bed Elevated PT-Transfer Assessment Sit to and From Stand Sit to and from Stand Maximum Assistance,1 Person Assistance,Use of Upper Extremities Equipment Transfer Assistive Device Gait Belt,Front Wheeled Walker Orthotic/Prosthetic Devices or Brace: No Comments Mobility Comments STS from commode MaxA with use of FWW. She ambulted to EOB ~ 4'CGA with FWW. Sit to supine into bed MaxA x2 with max cues . She performed ankle pumps, quad sets, glute sets and heel slides. Pt was left in bed, all needs met. Gait Assessment Gait Gait Assistance Required: Contact Guard Assist,1 Person Assist Distance (Feet) 4 Able to Maintain Weight Bearing Status Yes During Gait Assistive Devices Assistive Device Gait Belt,Front Wheeled Walker Orthotic/Prosthetic Devices or Brace: No Gait Deviations General Gait Pattern Antalgic,Decreased Stride Length,Decreased Feet Clearance,Step-to Gait Factors Limiting Gait Function Factors Limiting Gait Function Decreased Activity Tolerance, Decreased Strength,Difficulty Following Directions,Limited Range of Motion,Pain,Poor Balance,Poor Safety Awareness Comments Gait Comments See mobility comments PT-Balance Assessment Sitting Balance and Reactions Static Sitting Balance Ability Good Dynamic Sitting Balance Ability Fair Standing Balance and Reactions Static Standing Balance Ability Fair Dynamic Standing Balance Ability Poor Device Used FWW M5 PT-IP Objective Assessments Start: 04/04/24 12:47 Freq: NEEDED Status: Active Protocol: Document 04/06/24 10:00 AB (Rec: 04/06/24 12:22 AB [id number]) Orientation Orientation/Cognition Level of Alertness Alert Orientation Name,Place,Situation Memory Description Short Term Impaired Gross Range of Motion Lower Extremity ROM Assessment Within Functional Limits Strength Lower Extremity Strength Assessment Right Impaired Hip 3+/5 Knee 3+/5 Coordination Assessment Gross Coordination Gross Coordination WNL Muscle Tone Muscle Tone WNL Yes M6 PT-IP Treatment Start: 04/04/24 12:47 Freq: NEEDED Status: Active Protocol: Document 04/08/24 15:15 TS (Rec: 04/08/24 15:27 TS [id number]) Physical Therapy Treatment Education Education Provided Precautions,Safety M7 PT-IP Assessment and Plan Start: 04/04/24 12:47 Freq: NEEDED Status: Active Protocol: Document 04/08/24 15:15 TS (Rec: 04/08/24 15:27 TS [id number]) PT Summary Assessment and Plan Potential Rehabilitation Potential Fair Summary Impairments Pain,ROM,Strength,Balance, Coordination,Sensation,Tone, Cognition,Bed Mobility, Transfers,Gait,Activity Tolerance Progress Towards Goals Slow Progress due to Activity Tolerance,Slow Progress - Other Assessment Summary Kenyetta continues to fatigue quickly with activity. She requires heavy cueing for mobility and some management of FWW. She continues to require 2PA for bed mobility and 1PA for transfers and gait . PT continues to recommend SNF. Goals Bed Mobility Goal Contact Guard Assistance Transfer Goal Contact Guard Assistance,Front Wheeled Walker Gait Goal Contact Guard Assistance,Front Wheel Walker Gait Distance 100 Other Goals improve bed mobility, transfers, ambulation using FWW ~ 150 ft SBA Days to Meet Goals 10 Frequency of Treatment Frequency Of Treatment Twice a Day Treatment Plan Physical Therapy Treatment Plan Bed Mobility Training,Transfer Training,Gait Training, Therapeutic Exercise,Balance Retraining,Post Op Education, Discharge Planning,Hot or Cold Pack,Neuromuscular Re-ed, Coordination Retraining,Manual Therapy Precautions Posterior Hip Precautions No Hip Flexion > 90 degrees,No Hip Internal Rotation,No Hip Adduction Weight Bearing Status Weight Bearing Status Weight Bear as Tolerated Allowed Weight Bearing Amount (enter % RLE WBAT or #) (%) Recommendations To Nursing Amount of Assist Needed 2 Person Assist Discharge Recommendations PT Discharge Recommendations SNF Rehab Transportation Needs at Discharge Wheelchair/Cabulance
--- NOTE | 2024-04-08 15:00 | OT.IP.TRT ---
Current Diagnoses Mixed hyperlipidemia (04/02/24) Hypo-osmolality and hyponatremia (04/02/24) Epilepsy, unspecified, not intractable, without status epilepticus (04/02/24) Essential (primary) hypertension (04/02/24) Atherosclerotic heart disease of [place] coronary artery without angina pectoris (04/02/24) Paroxysmal atrial fibrillation (04/02/24) Other allergic rhinitis (04/02/24) Mild intermittent asthma, uncomplicated (04/02/24) Gastro-esophageal reflux disease without esophagitis (04/02/24) Displaced intertrochanteric fracture of right femur, initial encounter for closed fracture (04/02/24) 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 (04/02/24) Personal history of neoplasm of uncertain behavior (04/02/24) Personal history of other venous thrombosis and embolism (04/02/24) Acquired absence of both cervix and uterus (04/02/24) Presence of unspecified artificial hip joint (04/02/24) Other specified postprocedural states (04/02/24) Surgery Performed Operation Date: 04/04/24 08:00 Actual Procedures p Right Hip Hemiarthroplasty(Right) - Elijah Morrison MD Occupational Therapy Treatment Note M2 OT-IP Current Condition Start: 04/05/24 14:06 Freq: Status: Active Protocol: Document 04/05/24 14:06 CGR (Rec: 04/05/24 14:21 CGR [id number]) Occupational Therapy Current Condition Current Condition Evaluation Date 04/05/24 Treatment Diagnosis fall with R hip fx, now s/p R BART Diagnosis Onset Date 04/02/24 Post Operative Precautions Posterior Hip Precautions No Hip Flexion > 90 degrees,No Hip Internal Rotation,No Hip Adduction M3 OT- IP Subjective and Pain Start: 04/05/24 14:06 Freq: Status: Active Protocol: Document 04/08/24 15:00 CCC (Rec: 04/08/24 15:42 CCC [id number]) OT- Subjective Occupational Therapy Visit Type Type Treatment Note Visit Start Time 14:15 Visit Stop Time 15:00 Occupational Therapy Visit Comments Patient Comments Pt wanting to use the BSC. Patient/Caregiver Goals To get better. OT Pain Assessment Pain When Pain Assessed At Rest Pain Present Pain Present Pain Reported Location right hip Intensity 7 Scale Used Numeric (0 - 10) M4 OT- IP ADL's Start: 04/05/24 14:06 Freq: Status: Active Protocol: Document 04/08/24 15:00 [facility] (Rec: 04/08/24 15:42 [facility] [id number]) OT [id number] Comments OT Self-Feeding Comments Not at meal time. OT ADL-Grooming Comments OT Grooming Comments Not performed. OT ADL-Oral Care Comments Oral Care Comments not performed OT ADL-Dressing General Eval Lower Body Dressing Ability Moderate Assistance Areas Needing Assistance Underpants/Brief Comments OT Dressing Comments Pt able to practice use of the concrete block mason to don/doff her brief . OT ADL-Toileting General Evaluation Toileting Ability Moderate Assistance Areas Needing Assistance Manage Clothing Comments OT Toileting Comments Pt able to reach to wipe to in the front and follow her hip precautions. Educated pt will have to stand and wipe to follow her precautions, but at this time will need assist. OT ADL-Bathing Comments OT Bathing Comments Use of rolling shower chair would best at this time. M5 OT- IP IADL's Start: 04/05/24 14:06 Freq: Status: Active Protocol: Document 04/05/24 14:06 CGR (Rec: 04/05/24 14:21 CGR [id number]) OT-Instrumental Activities of Daily Living Deficits IADL Deficits Identified Deficits Home Safety Awareness Awareness of Need for Assistance at Home Decreased Awareness Medication Management Medication Management Caregiver Administers Money Management Money Management Caregiver Provides Assistance Meal Preparation Meal Preparation Caregiver Provides Assist Immigration Officer Immigration Officer Caregiver Provides Assist M6 OT- IP Functional Cognition Start: 04/05/24 14:06 Freq: Status: Active Protocol: Document 04/08/24 15:00 [facility] (Rec: 04/08/24 15:42 [facility] [id number]) Cognitive Factors Limiting Selfcare Function Cognitive Ability Level of Alertness Alert Attention Span Ability Capable of Focused Attention, Capable of Sustained Attention Ability to Follow Commands Able to Follow One Step Commands with Increased Time, Able to Follow One Step Commands with Repetition Memory Description Short Term Impaired Safety Awareness Decreased Recall of Precautions,Decreased Ability to Apply Precautions Cognitive Comments Cognitive Assessment Comments Pt still groggy and able to recall 2/3 hip precautions, but needing explanation over again of how to incorporate movements and use of equipment needs for ADL needs. M7 OT- IP Mobility and Balance Start: 04/05/24 14:06 Freq: Status: Active Protocol: Document 04/08/24 15:00 [facility] (Rec: 04/08/24 15:42 [facility] [id number]) OT- Bed Mobility Assessment Supine to Sit Supine to Sit Assist Maximum Assistance,1 Person Assistance,Head of Bed Elevated,Bedrails Sit to Supine Sit to Supine Assist Maximum Assistance,2 Person Assistance Scooting Scooting to Edge of Bed Contact Guard Assistance, Bedrails OT-Transfer Assessment Sit to and From Stand Sit to and from Stand Maximum Assistance,1 Person Assistance Transfers Transfer Ability Maximum Assistance,1 Person Assistance Technique Transfer Destination Bed,Chair Devices Transfer Assistive Devices Gait Belt,Front Wheeled Walker Comments Mobility Comments Pt needing assist to move her RLE and help to get her trunk upright. MAX AX 1 to stand and vc to slide her RLE forwards and while coming to stand or sitting down. Pt is very heavy handed on the and needing assist to guide and steady the FWW during the transfer. OT- Balance Assessment Sitting Balance and Reactions Static Sitting Balance Ability Good Dynamic Sitting Balance Ability Fair Standing Balance and Reactions Static Standing Balance Ability Poor Dynamic Standing Balance Ability Poor Comments Other Balance Tests/Deviations/Treatment Pt no longer leans and able to : sit upright today. M8 OT- IP Objective Assessments Start: 04/05/24 14:06 Freq: Status: Active Protocol: Document 04/05/24 14:06 CGR (Rec: 04/05/24 14:21 CGR [id number]) OT Gross Range of Motion Upper Extremity Range of Motion Assessment Within Functional Limits OT Strength Upper Extremity Strength Assessment Within Functional Limits OT- Coordination Assessment Upper Extremity Finger to Nose Test Within Functional Limits Finger Tapping Test Within Functional Limits OT-Muscle Tone Assessment Muscle Tone WNL Yes OT Sensation Assessment Edema Edema Absent M9 OT- IP Assessment and Plan Start: 04/05/24 14:06 Freq: Status: Active Protocol: Document 04/08/24 15:00 [facility] (Rec: 04/08/24 15:42 [facility] [id number]) OT Summary Assessment and Plan Potential Rehabilitation Potential Good Analytic Complexity at Evaluation Moderate Summary OT Impairments Pain,Strength,Balance, Functional Cognition, Functional Mobility,Grooming, Dressing,Toileting,Bathing, Toilet Transfers,Shower Transfers,Activity Tolerance Progress Towards Goals Progressing Toward Goals Assessment Summary Pt doing much better with mobility and able to get out of bed and transfer to and from the [facility] with MAX Ax1. Pt still needing education and vc for her hip precautions. Pt to go to skilled rehab when medically stable. Goals Grooming Goal Independent Dressing Goal Minimal Assistance Toileting Goal Standby Assistance Bathing Goal Standby Assistance Toilet Transfer Goal Independent Shower Transfer Goal Standby Assistance Days to Meet Goals 25 Frequency of Treatment Frequency Of Treatment Once a Day Treatment Plan OT Treatment Plan ADL Training,Functional Cognition Training,Functional Mobility,Patient/Family Education,Discharge Planning Discharge Recommendations OT Discharge Recommendations SNF Rehab Transportation Needs at Discharge Wheelchair/Cabulance
[2024-04-08 16:00] VITALS: BP 129/54; RESP 18; TEMP 35.9; O2SAT 96
--- NOTE | 2024-04-08 16:58 | PM.PNPO.1 ---
Subjective Subjective Interval history: Kenyetta is a 78-year-old female who is POD#1 s/p Right hip hemiarthroplasty for a Right basicervical femoral neck fracture by Dr. Morrison. Overall patient states her hip is doing well. Still having moderate pain but her pain is well controlled w/ her current medication regiment. Worked w/ both PT and OT today and reports it went well but she would like to increase her activity w/ PT tommorow to be able to walk down the hallway. She has had a BM and is urinating several times a day w/o issue. She is currently being managed by medicine for acute hyponatremia. She does have a history of DVT during a prior hospital admission. They live in [place] and were here visting when patient sustained the fall that broke her hip. They plan on rehabbing at SNF before heading back home to [facility]. Their son is a pediatric ID physician at [employer]. Denies fever, chills, chest pain, SOB, nausea, vomiting. Exam Vital Signs (past 8 hours): - 04/08/24 12:00 04/08/24 16:00 Temperature 97.0 F L 96.6 F L Pulse Rate 67 Respiratory Rate 17 18 Blood Pressure 119/58 L 129/54 L Pulse Oximetry 99 96 Oxygen Flow Rate 0 0 Oxygen Delivery Method Room Air Oxygen Flow Rate 0 Narrative Exam Narrative: Patient lying comfortably in bed during our interview today. No acute distress. AOx3. Grossly normal alignment of the right lower extremity w/ moderate-severe swelling of the thigh. 5/5 strength with DF, PF, EHL bilaterally. Gross sensation intact throughout bilateral lower extremities. Calves soft and non-tender bilaterally. SCDs are on and functioning. Brisk capillary refill, pulses intact. Post-surgical dressing/Aquacel dressing is saturated and serous fluid is leaking out from beneath the Aquacel. The serous soaked Aquacel dressing was removed revealing a normal looking incision beneath, no purulent drainage, no bleeding no surrouning erythema. William in place. The surigcal site was then cleaned w/ chlorahexadine, dried w/ sterile gauze and a new Aquacel was replaced over the incision site. Objective Labs 04/08/24 04:35 04/08/24 17:10 Labs: Laboratory Results - last 24 hr 04/07/24 04/08/24 04/08/24 17:50 04:35 08:30 WBC 10.0 RBC 3.32 L Hgb 10.2 L Hct 29.5 L MCV 88.9 MCH 30.7 MCHC 34.5 RDW 14.0 Plt Count 283 Neut % (Auto) 58.2 Lymph % (Auto) 22.7 L [place] % (Auto) 12.4 Eos % (Auto) 5.9 H Baso % (Auto) 0.8 Neut # (Auto) 5800 Lymph # (Auto) 2300 [place] # (Auto) 1200 H Eos # (Auto) 600 H Baso # (Auto) 100 Sodium 134 L 131 L Potassium 4.8 4.5 Chloride 104 102 Carbon Dioxide 27 28 BUN 14 15 Creatinine 0.93 0.76 Estimated GFR > 60 > 60 BUN/Creatinine Ratio 15.1 19.7 Glucose 95 85 Calcium 8.3 L 8.2 L Magnesium 2.3 Ur Random Sodium 71 PFSH Medical History (Updated 04/04/24 @ 15:05 by Rj Villarreal MD) Hyponatremia History of DVT (deep vein thrombosis) Asthma, mild intermittent Coronary artery disease Allergic rhinitis GERD without esophagitis Mixed hyperlipidemia Essential hypertension Seizure disorder Chronic anticoagulation Paroxysmal atrial fibrillation Surgical History (Updated 04/05/24 @ 06:32 by Merly Lawson PA-C) History of hysterectomy History of resection of meningioma Social History household members: spouse Smoking Status: Never smoker Assessment & Plan Post-op Postoperative Procedures: Procedures Operation Date: 04/04/24 08:00 Actual Procedure Side Surgeon p Right Hip Hemiarthroplasty Right Elijah Morrison MD Postoperative plan narrative: 1) Discharge disposition per Medicine. Waiting for medical stabilization, then likely d/c to SNF. 2) Continue multimodal pain management with ice to the hip for additional pain control if needed. 3) Continue Eliquis and SCDs for DVT prophylaxis. 4) Continue to work w/ physical therapy to improve range of motion and mobility. Maintain posterior hip precautions. No flexion, adduction and internal rotation. 5) Keep dressing intact, clean, dry until 2 week postop appointment. No soaking the incision site in pools or tubs. No topical ointments or creams to the incision site. Will continue to monitor dressing for continued serous drainage. 6) Follow up at [facility] in 2 weeks for a postop appointment and wound check. All patient's and her husbands questions were answered, they demonstrates understanding and are in agreement with the plan. Call our office if any questions or concerns arise. Quality VTE Deep Vein Thrombosis/Pulmonary Embolism Present on Admission: No
[2024-04-08 17:32] LABS: BUN Creatinine Ratio 16.8 (6-22); Blood Urea Nitrogen 19 mg/dL (7-17); Calcium 8.1 mg/dL (8.4-10.2); Carbon Dioxide 30 mmol/L (22-32); Chloride 99 mmol/L (98-107); Estimated Glomerular Filt Rate 50 mL/min (>60); Glucose 102 mg/dL (80-110); HEMOLYSIS < 15 (0-50); Sodium 130 mmol/L (137-145)
[2024-04-08 20:00] VITALS: BP 140/61; PULSE 78; RESP 18; TEMP 36.1; O2SAT 94
[2024-04-08] MEDS: SENNOSIDES 8.6 MG TABLET 17.2 MG PO (20:14)
[2024-04-08] MEDS: POTASSIUM CHLORIDE 10 MEQ TAB PO (20:15)
[2024-04-08] MEDS: ATORVASTATIN 20 MG TABLET 10 MG PO (20:15)
[2024-04-08] MEDS: MAGNESIUM OXIDE 400 MG TABLET PO (20:17)
[2024-04-08] MEDS: MONTELUKAST 10 MG TABLET PO (20:17)
[2024-04-08] MEDS: diphenhydrAMINE 25 MG TABLET 50 MG PO (20:18)
[2024-04-09] MEDS: OXYCODONE IR 5 MG TABLET PO ×2 (04:21→12:07)
[2024-04-09] MEDS: ACETAMINOPHEN 325 MG TABLET 650 MG PO ×2 (04:21→12:08)
[2024-04-09 05:53] LABS: BUN Creatinine Ratio 23.5 (6-22); Blood Urea Nitrogen 19 mg/dL (7-17); Calcium 8.1 mg/dL (8.4-10.2); Carbon Dioxide 31 mmol/L (22-32); Chloride 98 mmol/L (98-107); Estimated Glomerular Filt Rate > 60 mL/min (>60); Glucose 82 mg/dL (80-110); HEMOLYSIS < 15 (0-50); Sodium 130 mmol/L (137-145)
[2024-04-09] MEDS: PANTOPRAZOLE DR 20 MG TABLET PO (06:09)
[2024-04-09 07:00] VITALS: BP 122/37; PULSE 69; RESP 15; TEMP 36.1; O2SAT 95
--- NOTE | 2024-04-09 07:23 | PM.PNPO.1 ---
Subjective Subjective Date Patient Seen: 04/09/24 Time Patient Seen: 07:23 Interval history: Pt states she feels tired. Pain well-controlled, has been walking w/ PT. very concerned about 'leaking' from dressing, especially since diuretic is being held. In review of chart, it appears that furosemide was held briefly d/t hypovolemia, but looks like it was restarted yesterday. Hyponatremia is also a concern; Na+ 130 today. Exam Vital Signs (past 8 hours): Oxygen Delivery Method Room Air Oxygen Flow Rate 0 Narrative Exam Narrative: 5/5 strength in hip flexors, quadriceps, hamstrings, DF, PF, EHL on right. Sensation to light touch intact throughout RLE. Calf soft and compressible. Aquacel dressing placed yesterday is about 20% saturated; it was removed, incision was cleansed with sterile saline, and a fresh sterile Aquacel was placed. Incision had a very small amount of serous drainage from the proximal end. Dressing drainage was also serous; no pamela blood. Objective Labs 04/08/24 04:35 04/09/24 04:17 Labs: Laboratory Results - last 24 hr 04/08/24 04/08/24 04/09/24 08:30 17:10 04:17 Sodium 130 L 130 L Potassium 4.0 4.0 Chloride 99 98 Carbon Dioxide 30 31 BUN 19 H 19 H Creatinine 1.13 H 0.81 Estimated GFR 50 L > 60 BUN/Creatinine Ratio 16.8 23.5 H Glucose 102 82 Calcium 8.1 L 8.1 L Ur Random Sodium 71 PFSH Medical History (Updated 04/04/24 @ 15:05 by Rj Villarreal MD) Hyponatremia History of DVT (deep vein thrombosis) Asthma, mild intermittent Coronary artery disease Allergic rhinitis GERD without esophagitis Mixed hyperlipidemia Essential hypertension Seizure disorder Chronic anticoagulation Paroxysmal atrial fibrillation Surgical History (Updated 04/05/24 @ 06:32 by Merly Lawson PA-C) History of hysterectomy History of resection of meningioma Social History household members: spouse Smoking Status: Never smoker Assessment & Plan Post-op Assessment and plan (1) Status post hip hemiarthroplasty: Assessment and Plan narrative: 1) Continue PT. WBAT to right leg, posterior hip precautions. 2) Pt states she does not move around much when she sleeps. She is not confused or agitated and does not need to use hip abduction pillow in bed unless she is more comfortable. 3) Continue Eliquis for VTE prophylaxis. Recommend SCDs on and functioning at all times when in bed. 4) F/u w/ ortho in 7-10 days for wound check, and in 5-6 weeks w/ Dr Morrison for repeat imaging. If pt has returned home, wound check/staple removal can be done at PCPs office or other provider. 5) If dressing becomes saturated, may remove and replace with another Aquacel or just clean, dry gauze. The goal is to keep the incision clean and dry. 6) Disposition and pain management per hospitalist service. It appears that the plan is [facility] in [place] once she is medically stable. Postoperative Procedures: Procedures Operation Date: 04/04/24 08:00 Actual Procedure Side Surgeon p Right Hip Hemiarthroplasty Right Elijah Morrison MD Postoperative day: 5 Quality VTE Deep Vein Thrombosis/Pulmonary Embolism Present on Admission: No
--- NOTE | 2024-04-09 08:45 | PT.IPTN ---
Current Diagnoses Mixed hyperlipidemia (04/02/24) Hypo-osmolality and hyponatremia (04/02/24) Epilepsy, unspecified, not intractable, without status epilepticus (04/02/24) Essential (primary) hypertension (04/02/24) Atherosclerotic heart disease of [place] coronary artery without angina pectoris (04/02/24) Paroxysmal atrial fibrillation (04/02/24) Other allergic rhinitis (04/02/24) Mild intermittent asthma, uncomplicated (04/02/24) Gastro-esophageal reflux disease without esophagitis (04/02/24) Displaced intertrochanteric fracture of right femur, initial encounter for closed fracture (04/02/24) 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 (04/02/24) Personal history of neoplasm of uncertain behavior (04/02/24) Personal history of other venous thrombosis and embolism (04/02/24) Acquired absence of both cervix and uterus (04/02/24) Presence of unspecified artificial hip joint (04/02/24) Other specified postprocedural states (04/02/24) Surgery Performed Operation Date: 04/04/24 08:00 Actual Procedures p Right Hip Hemiarthroplasty(Right) - Elijah Morrison MD Physical Therapy Treatment Note M2 PT-IP Current Condition Start: 04/04/24 12:47 Freq: NEEDED Status: Active Protocol: Document 04/06/24 10:00 AB (Rec: 04/06/24 12:22 AB [id number]) Physical Therapy Current Condition Current Condition Evaluation Date 04/06/24 Treatment Diagnosis R hip fx s/p R hip hemiarthroplasty; difficulty in walking Onset Date 04/02/24 M3 PT-IP Subjective Start: 04/04/24 12:47 Freq: NEEDED Status: Active Protocol: Document 04/09/24 09:17 TS (Rec: 04/09/24 09:29 TS [id number]) Subjective Physical Therapy Visit Type Type Treatment Note Visit Start Time 08:45 Visit Stop Time 09:15 Number of [employer] Visits 3 Physical Therapy Visit Comments Patient Comments Pt found resting in chair, is agreeable to PT. Therapy Pain Assessment Pain When Pain Assessed During Mobility Pain Present Pain Present Pain Reported M4 PT-IP Mobility and Gait Start: 04/04/24 12:47 Freq: NEEDED Status: Active Protocol: Document 04/09/24 09:17 TS (Rec: 04/09/24 09:29 TS [id number]) PT-Transfer Assessment Sit to and From Stand Sit to and from Stand Maximum Assistance,1 Person Assistance,Use of Upper Extremities Equipment Transfer Assistive Device Gait Belt,Front Wheeled Walker Orthotic/Prosthetic Devices or Brace: No Comments Mobility Comments Pt performed quad sets, glute sets, ankle pumps, heel slides AAROM, Hip ABD AAROM x5. She recalled 2/3 hip precautions( no internal rotation). STS from chair MaxA x1, pt retroleans in standing, requires cues for weight forward. She ambulated ~20'CGA with FWW and a slow step to gait. Sit to supine into bed MaxA x1 for LE's into bed. Pt was left in bed, spouse in room, all needs met. Gait Assessment Gait Gait Assistance Required: Contact Guard Assist,1 Person Assist Distance (Feet) 20 Able to Maintain Weight Bearing Status Yes During Gait Assistive Devices Assistive Device Gait Belt,Front Wheeled Walker Orthotic/Prosthetic Devices or Brace: No Gait Deviations General Gait Pattern Antalgic,Decreased Stride Length,Decreased Feet Clearance,Step-to Gait Factors Limiting Gait Function Factors Limiting Gait Function Decreased Activity Tolerance, Decreased Strength,Difficulty Following Directions,Limited Range of Motion,Pain,Poor Balance,Poor Safety Awareness Comments Gait Comments See mobility comments PT-Balance Assessment Sitting Balance and Reactions Static Sitting Balance Ability Good Dynamic Sitting Balance Ability Fair Standing Balance and Reactions Static Standing Balance Ability Fair Dynamic Standing Balance Ability Poor Device Used FWW M5 PT-IP Objective Assessments Start: 04/04/24 12:47 Freq: NEEDED Status: Active Protocol: Document 04/06/24 10:00 AB (Rec: 04/06/24 12:22 AB [id number]) Orientation Orientation/Cognition Level of Alertness Alert Orientation Name,Place,Situation Memory Description Short Term Impaired Gross Range of Motion Lower Extremity ROM Assessment Within Functional Limits Strength Lower Extremity Strength Assessment Right Impaired Hip 3+/5 Knee 3+/5 Coordination Assessment Gross Coordination Gross Coordination WNL Muscle Tone Muscle Tone WNL Yes M6 PT-IP Treatment Start: 04/04/24 12:47 Freq: NEEDED Status: Active Protocol: Document 04/09/24 09:17 TS (Rec: 04/09/24 09:29 TS [id number]) Physical Therapy Treatment Education Education Provided Precautions,Safety M7 PT-IP Assessment and Plan Start: 04/04/24 12:47 Freq: NEEDED Status: Active Protocol: Document 04/09/24 09:17 TS (Rec: 04/09/24 09:29 TS [id number]) PT Summary Assessment and Plan Potential Rehabilitation Potential Fair Summary Impairments Pain,ROM,Strength,Balance, Coordination,Sensation,Tone, Cognition,Bed Mobility, Transfers,Gait,Activity Tolerance Progress Towards Goals Slow Progress due to Activity Tolerance,Slow Progress - Other Assessment Summary Kenyetta is making some progress with her mobility but continues to be slow. She has poor activity tolerance to gait and fatigues quickly. She has some diffiuclty remembering precautions, did not recall int rotation. PT continues to recommend SNF rehab. Goals Bed Mobility Goal Contact Guard Assistance Transfer Goal Contact Guard Assistance,Front Wheeled Walker Gait Goal Contact Guard Assistance,Front Wheel Walker Gait Distance 100 Other Goals improve bed mobility, transfers, ambulation using FWW ~ 150 ft SBA Days to Meet Goals 10 Frequency of Treatment Frequency Of Treatment Twice a Day Treatment Plan Physical Therapy Treatment Plan Bed Mobility Training,Transfer Training,Gait Training, Therapeutic Exercise,Balance Retraining,Post Op Education, Discharge Planning,Hot or Cold Pack,Neuromuscular Re-ed, Coordination Retraining,Manual Therapy Precautions Posterior Hip Precautions No Hip Flexion > 90 degrees,No Hip Internal Rotation,No Hip Adduction Weight Bearing Status Weight Bearing Status Weight Bear as Tolerated Allowed Weight Bearing Amount (enter % RLE WBAT or #) (%) Recommendations To Nursing Amount of Assist Needed 1 Person Assist Discharge Recommendations PT Discharge Recommendations SNF Rehab Transportation Needs at Discharge Wheelchair/Cabulance
[2024-04-09] MEDS: POTASSIUM CHLORIDE 10 MEQ TAB PO (08:53)
[2024-04-09] MEDS: SODIUM CHLORIDE 1,000 MG TABLET 1000 MG PO (08:53)
[2024-04-09] MEDS: DIVALPROEX DR 250 MG TABLET 750 MG PO (08:53)
[2024-04-09] MEDS: DOCUSATE 100 MG CAPSULE PO (08:53)
[2024-04-09] MEDS: FUROSEMIDE 40 MG TABLET PO (08:53)
[2024-04-09] MEDS: APIXABAN 5 MG TABLET PO (08:53)
[2024-04-09] MEDS: FLUTICASONE 120 SPRAY/16 GM SPRAY.SUSP NASAL (08:54)
[2024-04-09] MEDS: SALMETEROL INH (08:54)
[2024-04-09] MEDS: FLUTICASONE INH (08:54)
[2024-04-09] MEDS: SODIUM CHLORIDE 0.9% FLUSH 10 ML IV (08:55)
--- NOTE | 2024-04-09 10:06 | P.DS_ITS ---
History of Present Illness History of Present Illness Date Patient Seen: 04/09/24 Time Patient Seen: 10:08 Chief complaint: GLF Narrative: Per admitting provider, This is a pleasant 78-year-old female with past medical history of coronary artery disease and AFib on apixaban (last took 2 days ago) who had a ground level fall sustaining a right hip femoral neck fracture. She was seen in our emergency department and admitted to the hospitalist service. Currently complaining of pain in the right hip otherwise no other issues. Denies any recent nausea, vomiting, diarrhea, fevers, chills or any other constitutional symptoms. No other complaints at this time. Discharge Providers Provider Date of admission: 04/02/24 15:11 Discharge Date: 04/09/24 Consults: 04/02/24 15:46 Consult to Physical Therapy Evaluate & Treat Comment: postop Physician Instructions: Evaluate and Treat 04/04/24 12:32 Consult to Occupational Therapy Evaluate & Treat Comment: Physician Instructions: Evaluate and treat Consult to Physical Therapy Evaluate & Treat Comment: Physician Instructions: Evaluate and Treat Discharge provider: Jhonny Elizondo DO Summary Hospital Course Discharge Diagnosis: (1) Closed pathologic intertrochanteric fracture of right femur: 2. Acute hyponatremia, not present on admission. 3. paroxysmal afib on oral anticoagulation. 4 History of resection of meningioma: 5 Seizure disorder: 6 Essential hypertension: 7 Mixed hyperlipidemia: 8 GERD without esophagitis: 9 Allergic rhinitis: 10 Asthma, mild intermittent: 11 History of hysterectomy: 12 History of DVT (deep vein thrombosis): Hospital Course: This is a 78 year old female with PMH of paroxysmal afib on anticoagulation, resection of meningioma, seizure disorder, HTN, HLD, GERD, mild intermittent asthma, prior DVT who was admitted after a fall with a right pathologic femur fracture. She underwent operative repair with a right hemiarthroplasty. Her course was complicated by hypovolemic hyponatremia initially with sodium falling to as low as 116. This improved slowly with repletion of IV fluids, hypertonic saline was not required. She gradually improved to a sodium of 134, but then fell slightly to upper 130s. Urine studies were repeated which showed a urine sodium of 71 indicating an SIADH. She was placed on fluid restriction and her home furosemide was resumed. Sodium stayed stable at 130 and she was asymptomatic. Repeat sodium is recommended in a couple of days at SNF. No other changes to her home medications are recommended at this time. After therapy evaluation, she was recommended for SNF for ongoing therapies, where she was transferred once her sodium had stabilized in a safe range. Time Spent with Patient Time spent: Greater than 30 minutes Exam Vital Signs (past 8 hours): - 04/09/24 07:00 04/09/24 07:00 Temperature 97.0 F L Pulse Rate 69 Respiratory Rate 15 Blood Pressure 122/37 L Pulse Oximetry 95 Oxygen Delivery Method Room Air Oxygen Flow Rate 0 Oxygen Delivery Method Room Air Oxygen Flow Rate 0 Narrative Exam Narrative: GENERAL: This is a well-nourished, well-developed patient, in no apparent distress. EXTREMITIES: No clubbing, cyanosis, or edema. NEUROLOGIC: Alert, oriented, speech fluent, full upper and lower motor strength, no focal deficits evident. DERMATOLOGIC: Right elbow abrasion with dressing in place. Objective Labs 04/08/24 04:35 04/09/24 04:17 Labs: Laboratory Results - last 24 hr 04/08/24 04/09/24 17:10 04:17 Sodium 130 L 130 L Potassium 4.0 4.0 Chloride 99 98 Carbon Dioxide 30 31 BUN 19 H 19 H Creatinine 1.13 H 0.81 Estimated GFR 50 L > 60 BUN/Creatinine Ratio 16.8 23.5 H Glucose 102 82 Calcium 8.1 L 8.1 L PFSH Medical History (Updated 04/04/24 @ 15:05 by Rj Villarreal MD) Hyponatremia History of DVT (deep vein thrombosis) Asthma, mild intermittent Coronary artery disease Allergic rhinitis GERD without esophagitis Mixed hyperlipidemia Essential hypertension Seizure disorder Chronic anticoagulation Paroxysmal atrial fibrillation Surgical History (Updated 04/05/24 @ 06:32 by Merly Lawson PA-C) History of hysterectomy History of resection of meningioma Social History household members: spouse Smoking Status: Never smoker Discharge Plan Discharge Plan Patient Disposition: SNF Transfer to: [facility] Provider Discharge Comment: 78 F admitted with hip fx. 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 Recommend repeat sodium evaluation in 2-3 days with repeat BMP. Added salt tabs, but no other restrictions to home medications at this time. Discharge orders & Medications Prescriptions: New acetaminophen 325 mg Tablet 650 mg PO Q6H PRN (Reason: Fever/Mild Pain (1-3)) Qty: 30 0RF diphenhydramine HCl [Allergy (diphenhydramine)] 25 mg Tablet 50 mg PO BEDTIME PRN (Reason: Sleep) Qty: 30 0RF docusate sodium 100 mg Capsule 100 mg PO DAILY Qty: 60 0RF polyethylene glycol 3350 17 gram Powder In Packet 17 g PO DAILY PRN (Reason: Constipation) Qty: 14 0RF oxycodone 5 mg Tablet 5 mg PO Q4HR PRN (Reason: Pain, Moderate (4-6)) Qty: 30 0RF sennosides [senna] 8.6 mg Tablet 17.2 mg PO BEDTIME Qty: 60 0RF sodium chloride 1,000 mg Tablet,Soluble 1,000 mg PO DAILY Qty: 30 0RF Continued furosemide 40 mg tablet 40 mg PO DAILY potassium chloride 10 mEq tablet extended release 10 meq PO BID omeprazole 20 mg capsule,delayed release(DR/EC) 20 mg PO DAILY loratadine [Allergy Relief (loratadine)] 10 mg Tablet 10 mg PO DAILY PRN (Reason: Allergic Symptoms) fluticasone propion-salmeterol [Advair Diskus] 250-50 mcg/dose Blister With Device 1 inh INHALATION BID zaleplon 5 mg Capsule 5 mg PO BEDTIME PRN (Reason: Sleep) Rx Instructions: must avoid high-fat meal/food immediately before taking dose Discontinued pitavastatin calcium [Livalo] 2 mg Tablet 2 mg PO QPM Follow up/Referrals: Elijah Morrison MD [Physician] - 1 Week (Follow up w/ PA in ortho clinic or Dr Morrison in 7-10 days for wound check. Follow up w/ Dr Morrison in 6 weeks for repeat imaging. If pt has returned home or cannot be transferred from SNF, wound check/staple removal can be done about 14 days post-op (April 18) by any healthcare provider.) Discharge Health Status Multidrug resistant organism: No MDRO Diet/Activity/Treatments Diet: Diet as Tolerated and Regular Liquid consistency: Normal/Thin Food texture: Regular Diet comment: Fluid restriction, 1.5 L total Activity: Weightbearing as tolerated to right leg. Posterior hip precautions. Skin/Wound/Dressing Care Dressing: May shower if there is a waterproof dressing (eg, Aquacel) on. If dressing becomes saturated inside, may remove and replace with clean, dry gauze. No bathing or otherwise soaking incision. Do not apply any creams, lotions, or ointments to incision until completely healed. The goal is to keep the incision clean and dry. Special Rehabilitation Services Reason for rehabilitation: Post-operative therapy Rehab type: Physical therapy and Occupational therapy Visit Report/Discharge Packet Instructions: DI for Hip Replacement Stand Alone Forms: Patient Portal/API, Surgery Discharge Quality VTE Deep Vein Thrombosis/Pulmonary Embolism Present on Admission: No
--- NOTE | 2024-04-09 10:25 | CM.DPC ---
Addendum entered by CHAGO Dewitt 04/09/24 10:35: Per Xuan at [facility] -- RN Report # is [phone], ask to be directed to [facility] Cart 1. Notified RN. Original Note: DCP Continued: Reviewed EMR and team rounds for pt?s medical status. Per hospitalist, pt's sodium has stablized and is agreeable to plan of dc to SNF today. DCP spoke with Xuan at [facility] and confirmed transport at 1300. PASRR completed, pending dc order/summary and signed medication list to be forwarded to facility. DCP notified pt's RN and [facility]. Plan: Pt to discharge to [facility] at 1300 via the facility wheelchair transport. CM Team will continue to follow for coordination of discharge plans. EDILSON Mathew
== END 2024-04-09 13:30 | DRG 522 ==
LOC: ED 14:47 → AC 15:12
PROVIDERS: Internal Medicine; Admitting Provider Internal Medicine; Emergency Provider Emergency Medicine; Referring Provider Emergency Medicine; Visit Provider Orthopaedic Surgery
PROC: 0SRR0JZ Replacement of Right Hip Joint, Femoral Surface with Synthetic Substitute, Open Approach (ICD-10-PCS; CPT 27125; principal; 2024-04-04 08:00)
DX: M84.451A Pathological fracture, right femur, initial encounter for fracture (principal); E22.2 Syndrome of inappropriate secretion of antidiuretic hormone; Y93.01 Activity, walking, marching and hiking; I48.0 Paroxysmal atrial fibrillation; Z79.01 Long term (current) use of anticoagulants; I25.10 Atherosclerotic heart disease of native coronary artery without angina pectoris; G40.909 Epilepsy, unspecified, not intractable, without status epilepticus; I10 Essential (primary) hypertension; E78.2 Mixed hyperlipidemia; K21.9 Gastro-esophageal reflux disease without esophagitis; J30.89 Other allergic rhinitis; J45.20 Mild intermittent asthma, uncomplicated; Z86.718 Personal history of other venous thrombosis and embolism; I95.9 Hypotension, unspecified; Z98.890 Other specified postprocedural states
CPT/HCPCS: 36415; 71045; 73502; 80048; 80053; 83735; 83935; 84300; 85025; 85610; 85730; 86850; 86900; 86901; 93005; 94640; 96374; 97110; 97116; 97129; 97162; 97166; 97530; 97535; 99284; 99285; C1776; C9290; J0171; J0612; J0690; J1100; J1885; J2270; J2405; J2704; J3010; J7613